=== PATIENT | female | born 2005 ===

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

== ENCOUNTER 2023-03-29 10:09 | Outpatient (CLI) | payer BC, OTHER, SELFPAY ==
--- NOTE | ~2023-03-29 | US_ITS ---
Abdominal Sonogram: Real-time sonographic imaging of the abdomen was performed. Clinical History: Splenomegaly Findings: The liver appears normal with no evidence of mass lesion or bile duct dilatation. Main por teresa vein demonstrates normal direction of flow. The spleen is normal in size without evidence of foca l lesion. The gallbladder is well distended, and appears normal with no evidence of gallstone or wal l thickening. The common bile duct measures 3 mm. The visualized pancreas, aorta, and IVC are unrema rkable. The right kidney measures 11.2 cm in length and the left kidney measures 10.5 cm. There is no hydronephrosis or renal calculus. Impression: Unremarkable abdominal ultrasound. No splenomegaly. Reviewed, dictated and finalized at location . Impression: Unremarkable abdominal ultrasound. No splenomegaly.
== END 2023-03-29 10:10 | disposition home or self-care (01) ==
PROVIDERS: PCP Pediatrics; Visit Provider Pediatrics
DX: R16.1 Splenomegaly, not elsewhere classified (principal)
CPT/HCPCS: 76700

== ENCOUNTER 2025-02-20 18:11 | Observation (INO) | payer BC, SELFPAY ==
--- NOTE | ~2025-02-20 | US_ITS ---
EXAMINATION: US transvaginal DATE: 02/22/2025 10:31 INDICATION: Fibroid on CT TECHNIQUE: Multiple endovaginal sonographic images of the pelvis were obtained. COMPARISON: None. FINDINGS: The uterus measures 5.1 x 2.7 x 3.8 cm. The endometrial complex measures 3 mm in thickness inclusive of 2 mm of anechoic fluid within the endometrial canal. Normal appearance to the uterine myometrium with no uterine fibroids or other uterine lesions identified. The bilateral ovaries are not clearly v isualized there is normal vascular flow in the ovaries. There is trace amount of anechoic likely phys iologic free fluid in the cul-de-sac. IMPRESSION: 1. Unremarkable pelvic ultrasound. Reviewed, dictated and finalized at location A.
--- NOTE | ~2025-02-20 | CT_ITS ---
CT abdomen pelvis w con Ordering provider: Juaquin Rivera MD History: 19 years Female with . abd pain . Comparison: None. Technique: CT abdomen and pelvis with IV and without oral contrast. Automated exposure control and it erative reconstruction technique were employed. The dose-length product was 293.53 mGy-cm. 100 mL Omn ipaque 350 was given IV. Findings: VISUALIZED LOWER CHEST: Normal. UPPER ABDOMINAL ORGANS: Liver: Fat infiltration. Gallbladder: Normal. Spleen: Normal. Stomach/duodenum: Normal. Pancreas: Normal. Adrenals: Normal. Kidneys: Normal. PELVIC ORGANS: The bladder is underfilled with thickened wall. Evaluation for cystitis advised. Retro verted uterus with enhancing area. Ultrasound evaluation advised. BOWEL AND MESENTERY: Colon: No evidence of diverticulitis. Appendix is not demonstrated. Small Bowel: Normal. No obstruction. Peritoneum/mesentery: No free air or free fluid. No mesenteric lymphadenopathy. RETROPERITONEUM: Normal aorta. No retroperitoneal lymphadenopathy. MUSCULOSKELETAL: Superficial soft tissues: The superficial soft tissues are normal. Bones: Normal spine. IMPRESSION: 1. No evidence of appendicitis, diverticulitis or intestinal obstruction. 2. Enhancing area in the uterus which may be fibroid. 3. Thickened wall of the urinary bladder. Evaluation for cystitis advised. 4. Fat infiltration. Reviewed, dictated and finalized at location A.
--- NOTE | ~2025-02-20 | US_ITS ---
EXAMINATION: US abdomen complete DATE: 02/22/2025 09:44 INDICATION: Assess for cholelithiasis. Fibroids on CT. TECHNIQUE: Multiple grayscale and Doppler ultrasound images of the abdomen were obtained. COMPARISON: CT dated 02/20/2025 and ultrasound dated FINDINGS: The pancreatic head and body are normal in appearance. The pancreatic tail is not visualized. Liver has normal contour, with a smooth surface. There is increased parenchymal echogenicity and coarsened echotexture consistent with diffuse hepatic steatosis. No liver lesion identified. No intrahepatic b iliary duct dilation suspected. Portal venous flow was seen in the hepatopetal, normal direction and has normal Doppler waveform. Abdominal aorta is normal in caliber measuring 1.6 cm proximally, 1.6 cm in the mid aorta and 1.1 cm in the distal aorta. The visualized proximal inferior vena cava is monique l. The gallbladder is normal in appearance. There is no cholelithiasis. The common bile duct measure s 2-3 mm, which is normal. Sonographic Lentz sign was reported as negative by the manufacturing engineering intern. There is normal renal contour and echogenicity bilaterally. The right kidney measures 10.7 x 3.7 x 4.6 cm and the left 11.3 x 4.7 x 4.7 cm. There are no focal renal lesions identified. There is no hydronep hrosis. Normal spleen measuring 9.2 cm maximal length. IMPRESSION: 1. Diffuse hepatic steatosis. Otherwise normal abdominal ultrasound with no cholelithiasis. Reviewed, dictated and finalized at location A. IMPRESSION: 1. Diffuse hepatic steatosis. Otherwise normal abdominal ultrasound with no cho lelithiasis.
--- OUTSIDE RECORDS SUMMARY | 2025-02-20 18:14 | XMS_ITS | Patient Health Record ---
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 Name Role Phone Cristhian Phillip Unavailable [phone] GuiYazmin velasco Unavailable [phone] Migration, Provider Unavailable Unavailable Allergies No Known Allergies Results Component Value Reference Range Notes UDT Reviewed date:05/03/2024 08:55:39 AM Interpretation: Performing Lab: Notes/Report: THC P 0 - 50 ng/ml Cocaine N 0 - 300 ng/ml Amphetamine N 0 - 1000 ng/ml Buprenorphine (BUP) N 0 - 10 ng/ml Secobarbital (Bar) N 0 - 300 ng/ml Oxazepam (BZO) N 0 - 300 ng/ml 9-cwmiixmowj-9,3-eubzzsae-9,3-diphenylpyrrolidine (TIFFANIE P) N 0 - 300 ng/ml Methamphetamine (MET) N 0 - 1000 ng/ml Methylenedioxymethamphetamine (MDMA) N 0 - 500 ng/ml Morphine (MOP 300/[id number]) N 0 - 300 ng/ml Methadone (MTD) N 0 - 300 ng/ml Phencyclidine (PCP) N 0 - 25 ng/ml Nortriptyline (TCA) N 0 - 1000 ng/ml x N 0 - 300 ng/ml Reason For Referral No Information Medications Medication SIG (Take, Route, Frequency, Duration) Notes Start Date End Date Status lamoTRIgine ER 200 MG 1 tablet Oral Once a day for 90 days Active Escitalopram Oxalate 20 MG 1 tablet Oral Once a day for 90 days Active rOPINIRole HCl 1 MG 1 TABLET BY MOUTH 1 TO 3 HOURS BEFORE BEDTIME ORAL ONCE A DAY 30 DAYS for 90 Active Vraylar 4.5 MG 1 capsule Orally Once a day for 90 days dose increase Active clonazePAM 0.5 MG Oral 12/19/2023 A ctive Methylphenidate HCl ER 27 MG Oral 12/19/2023 Active rOPINIRole HCl 0.5 MG 1 tablet Oral Once a day for 90 days Active medroxyPROGESTERone Acetate 150 MG/ML Intramuscular 12/19/2023 Active Immunizations Vaccine Route Administration Date Status Comme nts Pfizer [employer] Covid-19 Vac cine 2nd dose Unknown 12/24/2020 Administered Pfizer [employer] Covid-19 Vac cine 2nd dose Unknown 01/13/2021 Administered Social History Sex Assigned At : Social History Observation Description Sex Assigned At Female Problems Problem Type SNOMED Code ICD Code Onset Dates Problem Status W/U Status Risk Notes Problem Mixed bipolar I disorder (93532540) Bipolar disorder, current episode mixed, unspecified (F31.60) 12/19/19 Active confirmed Problem Generalized anxiety disorder (75217088) Generalized anxiety disorder (F41.1) 12/19/19 Active confirmed Problem Attention deficit hyperactivity disorder, combined type (76725398) Attention-deficit hyperactivity disorder, combined type (F90.2) 03/12/20 Active confirmed Problem Restless legs syndrome (85137205) Restless leg syndrome (G25.81) Active confirmed Vital Signs Heart Rate 118 /min 10/01/2024 Height-cm 167.64 cm 10/01/2024 Blood pressure diastolic 88 mm Hg 10/01/2024 Weight-kg 63.5 kg 10/01/2024 Height 66.00 in 10/01/2024 Blood pressure systolic 133 mm Hg 10/01/2024 Weight 140.0 lbs 10/01/2024 BMI 22.59 kg/m2 10/01/2024 Encounters Encounter Location Date Provider Diagnosis [facility] [employer] [facility] [address] [facility] [address] [place] [address] 2024 Provider Migration Attention-deficit hyperactivity disorder, combined type F90.2 [facility] [employer] [address] [facility] [address] [place] [address] 04/03/2024 Cristhian Phillip Attention-deficit hyperactivity disorder, combined type F90.2 ; Generalized anxiety disorder F41.1 and Bipolar disorder, current episode mixed, unspecified F31.60 [facility], [facility] [address] [place] [address] 05/02/2024 Cristhian Phillip [facility], [facility] [address] [place] [address] 05/03/2024 Cristhian Phillip Attention-deficit hyperactivity disorder, combined type F90.2 ; Generalized anxiety disorder F41.1 and Bipolar disorder, current episode mixed, unspecified F31.60 [facility], [facility] [address] [place] [address] 05/31/2024 Cristhian Phillip Attention-deficit hyperactivity disorder, combined type F90.2 ; Generalized anxiety disorder F41.1 ; Bipolar disorder, current episode mixed, unspecified F31.60 and Restless leg syndrome G25.81 [facility], [facility] [address] [place] [address] 07/02/2024 Cristhian Phillip Attention-deficit hyperactivity disorder, combined type F90.2 ; Generalized anxiety disorder F41.1 ; Bipolar disorder, current episode mixed, unspecified F31.60 and Restless leg syndrome G25.81 [facility], [facility] [address] [place] [address] 07/04/2024 Cristhian Phillip [facility], [facility] [address] [place] [address] 10/01/2024 Cristhian Phillip Attention-deficit hyperactivity disorder, combined type F90.2 ; Generalized anxiety disorder F41.1 ; Bipolar disorder, current episode mixed, unspecified F31.60 and Restless leg syndrome G25.81 [facility], [facility] [address] [place] [address] 12/30/2024 Cristhian Phillip Attention-deficit hyperactivity disorder, combined type F90.2 ; Generalized anxiety disorder F41.1 ; Bipolar disorder, current episode mixed, unspecified F31.60 and Restless leg syndrome G25.81 [facility], [facility] [address] [place] [address] 03/09/2024 Provider Migration [facility], [facility] [address] [place] [address] 03/10/2024 Provider Migration [facility], [facility] [address] [place] [address] 03/11/2024 Provider Migration [place] [address] [address] 07/04/2024 Cristhian Ramachandrana [facility], [place] [address] [address] 04/20/2024 Yazmin Messer Attention-deficit hyperactivity disorder, combined type F90.2 [place] [address] [address] 06/09/2024 Cristhian Phillip [place] [address] [facility] [address] [place] [address] 06/13/2024 Cristhian Phillip Attention-deficit hyperactivity disorder, combined type F90.2 and Bipolar disorder, current episode mixed, unspecified F31.60 [place] [address] [address] 07/15/2024 Cristhian Phillip Bipolar disorder, current episode mixed, unspecified F31.60 and Attention-deficit hyperactivity disorder, combined type F90.2 [place] [address] [address] 08/23/2024 Cristhian Phillip Attention-deficit hyperactivity disorder, combined type F90.2 [facility], [place] [address] [address] 08/25/2024 Cristhianjoon Urbinaoza Bipolar disorder, current episode mixed, unspecified F31.60 and Restless leg syndrome G25.81 [place] [address] [address] 09/30/2024 Cristhian Phillip [place] [address] [address] 11/03/2024 Cristhian Phillip Attention-deficit hyperactivity disorder, combined type F90.2 Assessments Encounter Date Diagnosis (ICD Code) Assessment Notes Treatment Notes Treatment Clinical Notes Section Notes 2024 Attention-defic it hyperactivity disorder, combined type (ICD-10 - F90.2) 04/03/2024 Generalized anxiety disorder (ICD-10 - F41.1) 04/03/2024 Attention-defic it hyperactivity disorder, combined type (ICD-10 - F90.2) 04/20/2024 Attention-defic it hyperactivity disorder, combined type (ICD-10 - F90.2) 05/03/2024 Attention-defic it hyperactivity disorder, combined type (ICD-10 - F90.2) 1. Bipolar Disorder - Patient reports feeling stable with no ups and downs since starting Abilify 2 mg daily. However, the patient is experiencing twitching and restlessness, which may be a side effect of Abilify. - Plan: Discontinue Abilify and monitor for improvement in twitching symptoms. Consider alternative atypical antipsychotic or increasing Lamotrigine dose if needed. Follow up in one month to assess mood stability and twitching symptoms. 2. Restless Leg Syndrome - Patient reports a family history of restless leg syndrome and is currently experiencing restless legs. - Plan: Monitor symptoms after discontinuing Abilify, as this may be contributing to the restlessness. Consider further evaluation and treatment for restless leg syndrome if symptoms persist. 3. ADHD - Patient is currently taking Journay for ADHD symptoms and reports it is working well. - Plan: Continue Journay for ADHD management. Monitor for any changes in symptoms or side effects. 4. Sleep disturbance - Patient reports difficulty sleeping due to twitching and restlessness. - Plan: Discontinue Abilify and monitor for improvement in sleep quality. Consider further evaluation and treatment for sleep disturbance if symptoms persist after stopping Abilify. Follow-up: Schedule a follow-up appointment in one month to assess the patient's mood stability, twitching symptoms, and overall well-being. 05/31/2024 Generalized anxiety disorder (ICD-10 - F41.1) escitalopram 20mg daily 1. Tardive Dyskinesia and Restless Leg Syndrome - Patient reports improvement in twitching after stopping Abilify, but still experiences some twitching and restless legs. - Plan: Start ropinirole 0.5 mg at bedtime for restless leg syndrome. Monitor for improvement in symptoms. 2. Bipolar Disorder - Patient reports mood swings and increased emotional sensitivity since stopping Abilify. - Plan: Continue lamotrigine ER 200 mg daily for mood stabilization. Add Vraylar 1.5 mg daily to further stabilize mood. Monitor for side effects, particularly akathisia, and adjust dosage as needed. 3. Generalized Anxiety Disorder - Patient is currently on escitalopram 20 mg daily. - Plan: Continue escitalopram 20 mg daily for anxiety management. Monitor for effectiveness and side effects. 4. ADHD Combined Presentation - Patient reports Jornay 100 mg at bedtime is working well. - Plan: Continue Jornay 100 mg at bedtime for ADHD management. Refill prescription as needed. 5. Follow-up - Schedule a follow-up appointment in one month to assess the effectiveness of Vraylar and ropinirole, and to monitor for any side effects. Adjust treatment plan as necessary. 05/31/2024 Attention-defic it hyperactivity disorder, combined type (ICD-10 - F90.2) 1. Tardive Dyskinesia and Restless Leg Syndrome - Patient reports improvement in twitching after stopping Abilify, but still experiences some twitching and restless legs. - Plan: Start ropinirole 0.5 mg at bedtime for restless leg syndrome. Monitor for improvement in symptoms. 2. Bipolar Disorder - Patient reports mood swings and increased emotional sensitivity since stopping Abilify. - Plan: Continue lamotrigine ER 200 mg daily for mood stabilization. Add Vraylar 1.5 mg daily to further stabilize mood. Monitor for side effects, particularly akathisia, and adjust dosage as needed. 3. Generalized Anxiety Disorder - Patient is currently on escitalopram 20 mg daily. - Plan: Continue escitalopram 20 mg daily for anxiety management. Monitor for effectiveness and side effects. 4. ADHD Combined Presentation - Patient reports Jornay 100 mg at bedtime is working well. - Plan: Continue Jornay 100 mg at bedtime for ADHD management. Refill prescription as needed. 5. Follow-up - Schedule a follow-up appointment in one month to assess the effectiveness of Vraylar and ropinirole, and to monitor for any side effects. Adjust treatment plan as necessary. 06/13/2024 Attention-defic it hyperactivity disorder, combined type (ICD-10 - F90.2) 07/02/2024 Attention-defic it hyperactivity disorder, combined type (ICD-10 - F90.2) 1. Bipolar Disorder: - Patient reports improvement in mood swings and emotional sensitivity with Vraylar 1.5 mg, but still experiencing some symptoms and a recent mild manic episode. Plan: - Increase Vraylar to 3 mg once daily to further address symptoms. - Continue monitoring for side effects and efficacy. 2. Restless Legs Syndrome: - Patient has been taking ropinirole 0.5 mg from a family member's leftover supply and reports improvement. Plan: - Resend prescription for ropinirole 0.5 mg, one tablet 1-3 hours before bedtime, to [facility] pharmacy in [place], [place]. - Ensure patient receives their own supply and continues treatment. 3. ADHD: - Patient reports satisfaction with Jornay for ADHD management. Plan: - Continue Jornay as prescribed. - Refill when due. 4. Anxiety/Depress ion: - Patient is currently on Lexapro 20 mg daily and reports no issues. Plan: - Continue Lexapro 20 mg daily. - Monitor for any changes in mood or anxiety levels. 5. Medication Management: - Patient expresses confusion regarding multiple bottles of the same medication from [facility]. Plan: - Work with the pharmacy to streamline medication dispensing and minimize confusion for the patient. - Continue monitoring patient's adherence to prescribed medications. 07/15/2024 Bipolar disorder, current episode mixed, unspecified (ICD-10 - F31.60) 08/23/2024 Attention-defic it hyperactivity disorder, combined type (ICD-10 - F90.2) 08/25/2024 Bipolar disorder, current episode mixed, unspecified (ICD-10 - F31.60) 10/01/2024 Attention-defic it hyperactivity disorder, combined type (ICD-10 - F90.2) 1. Bipolar Disorder: - Patient reports mood stability with current medications, Vraylar and Lamotrigine ER. - Plan: Continue Vraylar 3 mg daily and Lamotrigine ER 200 mg daily. Monitor for any changes in mood and adjust medications as needed. Follow-up in 3 months. 2. ADHD: - Patient reports improvement with Jornay PM. - Plan: Continue Jornay PM as prescribed. Monitor for any changes in ADHD symptoms and adjust medications as needed. Follow-up in 3 months. 3. Anxiety: - Patient reports mild anxiety, managed with Escitalopram. - Plan: Continue Escitalopram 20 mg daily. Monitor for any changes in anxiety levels and adjust medications as needed. Follow-up in 3 months. 4. Restless Leg Syndrome: - Patient reports improvement with Ropinirole, but still experiences symptoms when exhausted. - Plan: Continue Ropinirole 0.5 mg daily. Monitor for any changes in symptoms and consider increasing the dose if symptoms worsen. Follow-up in 3 months. Follow-up: Schedule a follow-up appointment in 3 months to monitor the patient's progress and medication effectiveness. 11/03/2024 Attention-defic it hyperactivity disorder, combined type (ICD-10 - F90.2) 12/30/2024 Attention-defic it hyperactivity disorder, combined type (ICD-10 - F90.2) 12/30/2024 Generalized anxiety disorder (ICD-10 - F41.1) escitalopram 20mg daily 07/02/2024 Generalized anxiety disorder (ICD-10 - F41.1) escitalopram 20mg daily 1. Bipolar Disorder: - Patient reports improvement in mood swings and emotional sensitivity with Vraylar 1.5 mg, but still experiencing some symptoms and a recent mild manic episode. Plan: - Increase Vraylar to 3 mg once daily to further address symptoms. - Continue monitoring for side effects and efficacy. 2. Restless Legs Syndrome: - Patient has been taking ropinirole 0.5 mg from a family member's leftover supply and reports improvement. Plan: - Resend prescription for ropinirole 0.5 mg, one tablet 1-3 hours before bedtime, to [facility] pharmacy in [place], [place]. - Ensure patient receives their own supply and continues treatment. 3. ADHD: - Patient reports satisfaction with Jornay for ADHD management. Plan: - Continue Jornay as prescribed. - Refill when due. 4. Anxiety/Depress ion: - Patient is currently on Lexapro 20 mg daily and reports no issues. Plan: - Continue Lexapro 20 mg daily. - Monitor for any changes in mood or anxiety levels. 5. Medication Management: - Patient expresses confusion regarding multiple bottles of the same medication from [facility]. Plan: - Work with the pharmacy to streamline medication dispensing and minimize confusion for the patient. - Continue monitoring patient's adherence to prescribed medications. 10/01/2024 Generalized anxiety disorder (ICD-10 - F41.1) escitalopram 20mg daily 1. Bipolar Disorder: - Patient reports mood stability with current medications, Vraylar and Lamotrigine ER. - Plan: Continue Vraylar 3 mg daily and Lamotrigine ER 200 mg daily. Monitor for any changes in mood and adjust medications as needed. Follow-up in 3 months. 2. ADHD: - Patient reports improvement with Jornay PM. - Plan: Continue Jornay PM as prescribed. Monitor for any changes in ADHD symptoms and adjust medications as needed. Follow-up in 3 months. 3. Anxiety: - Patient reports mild anxiety, managed with Escitalopram. - Plan: Continue Escitalopram 20 mg daily. Monitor for any changes in anxiety levels and adjust medications as needed. Follow-up in 3 months. 4. Restless Leg Syndrome: - Patient reports improvement with Ropinirole, but still experiences symptoms when exhausted. - Plan: Continue Ropinirole 0.5 mg daily. Monitor for any changes in symptoms and consider increasing the dose if symptoms worsen. Follow-up in 3 months. Follow-up: Schedule a follow-up appointment in 3 months to monitor the patient's progress and medication effectiveness. 08/25/2024 Restless leg syndrome (ICD-10 - G25.81) 07/15/2024 Attention-defic it hyperactivity disorder, combined type (ICD-10 - F90.2) 05/03/2024 Generalized anxiety disorder (ICD-10 - F41.1) 1. Bipolar Disorder - Patient reports feeling stable with no ups and downs since starting Abilify 2 mg daily. However, the patient is experiencing twitching and restlessness, which may be a side effect of Abilify. - Plan: Discontinue Abilify and monitor for improvement in twitching symptoms. Consider alternative atypical antipsychotic or increasing Lamotrigine dose if needed. Follow up in one month to assess mood stability and twitching symptoms. 2. Restless Leg Syndrome - Patient reports a family history of restless leg syndrome and is currently experiencing restless legs. - Plan: Monitor symptoms after discontinuing Abilify, as this may be contributing to the restlessness. Consider further evaluation and treatment for restless leg syndrome if symptoms persist. 3. ADHD - Patient is currently taking Journay for ADHD symptoms and reports it is working well. - Plan: Continue Journay for ADHD management. Monitor for any changes in symptoms or side effects. 4. Sleep disturbance - Patient reports difficulty sleeping due to twitching and restlessness. - Plan: Discontinue Abilify and monitor for improvement in sleep quality. Consider further evaluation and treatment for sleep disturbance if symptoms persist after stopping Abilify. Follow-up: Schedule a follow-up appointment in one month to assess the patient's mood stability, twitching symptoms, and overall well-being. 06/13/2024 Bipolar disorder, current episode mixed, unspecified (ICD-10 - F31.60) 05/31/2024 Bipolar disorder, current episode mixed, unspecified (ICD-10 - F31.60) Jornay PM Oral Capsule Extended Release 24 Hour 60 MG may enhance the adverse/toxic effects (eg, extrapyramidal symptoms) of antipsychotic agents (eg, ARIPiprazole Oral Tablet 2 MG). 1. Tardive Dyskinesia and Restless Leg Syndrome - Patient reports improvement in twitching after stopping Abilify, but still experiences some twitching and restless legs. - Plan: Start ropinirole 0.5 mg at bedtime for restless leg syndrome. Monitor for improvement in symptoms. 2. Bipolar Disorder - Patient reports mood swings and increased emotional sensitivity since stopping Abilify. - Plan: Continue lamotrigine ER 200 mg daily for mood stabilization. Add Vraylar 1.5 mg daily to further stabilize mood. Monitor for side effects, particularly akathisia, and adjust dosage as needed. 3. Generalized Anxiety Disorder - Patient is currently on escitalopram 20 mg daily. - Plan: Continue escitalopram 20 mg daily for anxiety management. Monitor for effectiveness and side effects. 4. ADHD Combined Presentation - Patient reports Jornay 100 mg at bedtime is working well. - Plan: Continue Jornay 100 mg at bedtime for ADHD management. Refill prescription as needed. 5. Follow-up - Schedule a follow-up appointment in one month to assess the effectiveness of Vraylar and ropinirole, and to monitor for any side effects. Adjust treatment plan as necessary. 04/03/2024 Bipolar disorder, current episode mixed, unspecified (ICD-10 - F31.60) 05/31/2024 Restless leg syndrome (ICD-10 - G25.81) 1. Tardive Dyskinesia and Restless Leg Syndrome - Patient reports improvement in twitching after stopping Abilify, but still experiences some twitching and restless legs. - Plan: Start ropinirole 0.5 mg at bedtime for restless leg syndrome. Monitor for improvement in symptoms. 2. Bipolar Disorder - Patient reports mood swings and increased emotional sensitivity since stopping Abilify. - Plan: Continue lamotrigine ER 200 mg daily for mood stabilization. Add Vraylar 1.5 mg daily to further stabilize mood. Monitor for side effects, particularly akathisia, and adjust dosage as needed. 3. Generalized Anxiety Disorder - Patient is currently on escitalopram 20 mg daily. - Plan: Continue escitalopram 20 mg daily for anxiety management. Monitor for effectiveness and side effects. 4. ADHD Combined Presentation - Patient reports Jornay 100 mg at bedtime is working well. - Plan: Continue Jornay 100 mg at bedtime for ADHD management. Refill prescription as needed. 5. Follow-up - Schedule a follow-up appointment in one month to assess the effectiveness of Vraylar and ropinirole, and to monitor for any side effects. Adjust treatment plan as necessary. 05/03/2024 Bipolar disorder, current episode mixed, unspecified (ICD-10 - F31.60) Jornay PM Oral Capsule Extended Release 24 Hour 60 MG may enhance the adverse/toxic effects (eg, extrapyramidal symptoms) of antipsychotic agents (eg, ARIPiprazole Oral Tablet 2 MG). 1. Bipolar Disorder - Patient reports feeling stable with no ups and downs since starting Abilify 2 mg daily. However, the patient is experiencing twitching and restlessness, which may be a side effect of Abilify. - Plan: Discontinue Abilify and monitor for improvement in twitching symptoms. Consider alternative atypical antipsychotic or increasing Lamotrigine dose if needed. Follow up in one month to assess mood stability and twitching symptoms. 2. Restless Leg Syndrome - Patient reports a family history of restless leg syndrome and is currently experiencing restless legs. - Plan: Monitor symptoms after discontinuing Abilify, as this may be contributing to the restlessness. Consider further evaluation and treatment for restless leg syndrome if symptoms persist. 3. ADHD - Patient is currently taking Journay for ADHD symptoms and reports it is working well. - Plan: Continue Journay for ADHD management. Monitor for any changes in symptoms or side effects. 4. Sleep disturbance - Patient reports difficulty sleeping due to twitching and restlessness. - Plan: Discontinue Abilify and monitor for improvement in sleep quality. Consider further evaluation and treatment for sleep disturbance if symptoms persist after stopping Abilify. Follow-up: Schedule a follow-up appointment in one month to assess the patient's mood stability, twitching symptoms, and overall well-being. 07/02/2024 Bipolar disorder, current episode mixed, unspecified (ICD-10 - F31.60) Jornay PM Oral Capsule Extended Release 24 Hour 60 MG may enhance the adverse/toxic effects (eg, extrapyramidal symptoms) of antipsychotic agents (eg, ARIPiprazole Oral Tablet 2 MG). 1. Bipolar Disorder: - Patient reports improvement in mood swings and emotional sensitivity with Vraylar 1.5 mg, but still experiencing some symptoms and a recent mild manic episode. Plan: - Increase Vraylar to 3 mg once daily to further address symptoms. - Continue monitoring for side effects and efficacy. 2. Restless Legs Syndrome: - Patient has been taking ropinirole 0.5 mg from a family member's leftover supply and reports improvement. Plan: - Resend prescription for ropinirole 0.5 mg, one tablet 1-3 hours before bedtime, to [facility] pharmacy in [place], [place]. - Ensure patient receives their own supply and continues treatment. 3. ADHD: - Patient reports satisfaction with Jornay for ADHD management. Plan: - Continue Jornay as prescribed. - Refill when due. 4. Anxiety/Depress ion: - Patient is currently on Lexapro 20 mg daily and reports no issues. Plan: - Continue Lexapro 20 mg daily. - Monitor for any changes in mood or anxiety levels. 5. Medication Management: - Patient expresses confusion regarding multiple bottles of the same medication from [facility]. Plan: - Work with the pharmacy to streamline medication dispensing and minimize confusion for the patient. - Continue monitoring patient's adherence to prescribed medications. 10/01/2024 Bipolar disorder, current episode mixed, unspecified (ICD-10 - F31.60) Jornay PM Oral Capsule Extended Release 24 Hour 60 MG may enhance the adverse/toxic effects (eg, extrapyramidal symptoms) of antipsychotic agents (eg, ARIPiprazole Oral Tablet 2 MG). 1. Bipolar Disorder: - Patient reports mood stability with current medications, Vraylar and Lamotrigine ER. - Plan: Continue Vraylar 3 mg daily and Lamotrigine ER 200 mg daily. Monitor for any changes in mood and adjust medications as needed. Follow-up in 3 months. 2. ADHD: - Patient reports improvement with Jornay PM. - Plan: Continue Jornay PM as prescribed. Monitor for any changes in ADHD symptoms and adjust medications as needed. Follow-up in 3 months. 3. Anxiety: - Patient reports mild anxiety, managed with Escitalopram. - Plan: Continue Escitalopram 20 mg daily. Monitor for any changes in anxiety levels and adjust medications as needed. Follow-up in 3 months. 4. Restless Leg Syndrome: - Patient reports improvement with Ropinirole, but still experiences symptoms when exhausted. - Plan: Continue Ropinirole 0.5 mg daily. Monitor for any changes in symptoms and consider increasing the dose if symptoms worsen. Follow-up in 3 months. Follow-up: Schedule a follow-up appointment in 3 months to monitor the patient's progress and medication effectiveness. 12/30/2024 Bipolar disorder, current episode mixed, unspecified (ICD-10 - F31.60) Jornay PM Oral Capsule Extended Release 24 Hour 60 MG may enhance the adverse/toxic effects (eg, extrapyramidal symptoms) of antipsychotic agents (eg, ARIPiprazole Oral Tablet 2 MG). 12/30/2024 Restless leg syndrome (ICD-10 - G25.81) 10/01/2024 Restless leg syndrome (ICD-10 - G25.81) 1. Bipolar Disorder: - Patient reports mood stability with current medications, Vraylar and Lamotrigine ER. - Plan: Continue Vraylar 3 mg daily and Lamotrigine ER 200 mg daily. Monitor for any changes in mood and adjust medications as needed. Follow-up in 3 months. 2. ADHD: - Patient reports improvement with Jornay PM. - Plan: Continue Jornay PM as prescribed. Monitor for any changes in ADHD symptoms and adjust medications as needed. Follow-up in 3 months. 3. Anxiety: - Patient reports mild anxiety, managed with Escitalopram. - Plan: Continue Escitalopram 20 mg daily. Monitor for any changes in anxiety levels and adjust medications as needed. Follow-up in 3 months. 4. Restless Leg Syndrome: - Patient reports improvement with Ropinirole, but still experiences symptoms when exhausted. - Plan: Continue Ropinirole 0.5 mg daily. Monitor for any changes in symptoms and consider increasing the dose if symptoms worsen. Follow-up in 3 months. Follow-up: Schedule a follow-up appointment in 3 months to monitor the patient's progress and medication effectiveness. 07/02/2024 Restless leg syndrome (ICD-10 - G25.81) 1. Bipolar Disorder: - Patient reports improvement in mood swings and emotional sensitivity with Vraylar 1.5 mg, but still experiencing some symptoms and a recent mild manic episode. Plan: - Increase Vraylar to 3 mg once daily to further address symptoms. - Continue monitoring for side effects and efficacy. 2. Restless Legs Syndrome: - Patient has been taking ropinirole 0.5 mg from a family member's leftover supply and reports improvement. Plan: - Resend prescription for ropinirole 0.5 mg, one tablet 1-3 hours before bedtime, to [facility] pharmacy in [place], [place]. - Ensure patient receives their own supply and continues treatment. 3. ADHD: - Patient reports satisfaction with Jornay for ADHD management. Plan: - Continue Jornay as prescribed. - Refill when due. 4. Anxiety/Depress ion: - Patient is currently on Lexapro 20 mg daily and reports no issues. Plan: - Continue Lexapro 20 mg daily. - Monitor for any changes in mood or anxiety levels. 5. Medication Management: - Patient expresses confusion regarding multiple bottles of the same medication from [facility]. Plan: - Work with the pharmacy to streamline medication dispensing and minimize confusion for the patient. - Continue monitoring patient's adherence to prescribed medications. 12/30/2024 Other 1. Bipolar Disorder: - Patient reports recent episodes of gambling behavior lasting a couple of weeks, followed by a depressive episode. - Now getting back up on the ground, indicating a return to a more stable mood state. - No hallucinations reported. - Current medications: Vraylar 3 mg daily, lamotrigine 200 mg daily, Lexapro 20 mg daily. Plan: - Increase Vraylar to 4.5 mg PO daily - Continue lamotrigine 200 mg PO daily - Continue Lexapro 20 mg PO daily - Follow up in one month to assess response to medication changes - Consider tapering off Lexapro in the future, pending clinical response 2. Restless Leg Syndrome: - Patient reports increased restless leg symptoms, primarily at night but sometimes during the day. - Currently taking ropinirole, but symptoms persist. - Unclear if symptoms have worsened with the introduction of Vraylar. Plan: - Increase ropinirole to 1 mg PO at bedtime - Monitor for improvement in restless leg symptoms - Advised to take Vraylar in the morning to avoid potential interaction with ropinirole 3. Attention Deficit Hyperactivity Disorder (ADHD): - Patient unable to obtain Jornay (methylphenidate ) due to high [id number] costs, even with a copay card. Plan: - Encourage patient to continue efforts to obtain Jornay through copay assistance programs - Monitor for any worsening of ADHD symptoms due to medication unavailability Plan Of Treatment No Information Insurance Providers Payer Name Payer Address Payer Phone Subscriber Number Group Number Insured Name Patient Relationship to Insured Coverage Start Date Coverage End Date [employer] [address] [place] [address] [id number] SKELTON Child - Insured has Financial Responsibility [facility] [address] [place] [address] [id number] IB[employer] Child - Insured has Financial Responsibility Medical (General) History Medical History History ICD Code Problems: Attention deficit hyperactivit y disorder, combined type Bipolar affective disorder, current epis ode mixed Generalized anxiety disorder Mild recurrent major depression Unable to concentrate , Surgical History Surgery Date(Month/Year) Unlisted px ant segment eye (23269) Other 11/11/2019 Unlisted px femur/knee (39792) Right Leg 11/11/2019 Appendectomy (44017) 11/14/2022 Any surgical history 04/27/2020 Unlisted px femur/knee (04123) LEFT Leg 04/28/2020
--- OUTSIDE RECORDS SUMMARY | 2025-02-20 18:14 | XMS_ITS | Clinical Summary ---
Author Organization [facility] Address [address] [place] [address] Care Team Providers Care Shuttle Hand Name Role Phone Emilia Han MD Primary Care Provider + Elias Vasques MD Unavailable [phone] Allergies No known active allergies Medications medroxyPROGESTERo ne (Depo-Provera) 150 mg/mL injectionIndicati ons: control Inject 1 mL (150 mg total) into the muscle as instructed every 3 (three) months Last dose 12/2022 Active escitalopram (LEXAPRO) 20 mg tabletIndications :Anxiety with Depression Take 1 tablet (20 mg total) by mouth nightly Active ibuprofen 200 mg tab/capIndication s:Anti-inflammato ry,Pain Take 2 tablet/capsule (400 mg total) by mouth every 8 (eight) hours as needed for pain Active lamoTRIgine XR (LaMICtal XR) 200 mg tablet extended release 24hrIndications:M ood Take 1 tablet (200 mg total) by mouth nightly 4 Active Vraylar 3 mg capsule capsuleIndication s:Depression associated with Bipolar Disorder Take 1 capsule (3 mg total) by mouth nightly 4 Active Jornay PM 100 mg capsule,del rel,ext rel sprinkIndications :Attention-Defici t Hyperactivity Disorder Take 1 capsule by mouth every evening 4 Active rOPINIRole (REQUIP) 0.5 mg tabletIndications :Restless Legs Syndrome Take 1 tablet (0.5 mg total) by mouth nightly Active ondansetron (ZOFRAN) 4 mg tablet Take 1 tablet (4 mg total) by mouth every 8 (eight) hours as needed for nausea 12 tablet 4 Active docusate sodium (COLACE) 100 mg capsuleIndication s:constipation Take 1 capsule (100 mg total) by mouth 2 (two) times a day 14 capsule 4 Active aspirin 81 mg enteric coated tablet Take 1 tablet (81 mg total) by mouth 2 (two) times a day for 14 days 28 tablet 4 Active oxyCODONE-acetami nophen (PERCOCET) 5-325 mg per tabletIndications :Pain Take 1 tablet by mouth every 6 (six) hours as needed for pain 20 tablet 4 Active Active Problems Problem Noted Date Diagnosed Date Impingement syndrome involving patellar fat pad 09/02/2024 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 female with a past medical history of bilateral femoral anteversion ,heavy menstrual periods, and knee pain that presents for syncope x2 and episodes of dizziness on POD6 from femoral anteversion surgery. In the ED, she was found to be tachycardic to the 130's. She had a Well's score of 6, so a CT PE protocol was performed and was negative for PE. Received 20 ml/kg NS bolus x2 (1990 mL total) with improvement in her tachycardia. EKG showed sinus tachycardia. CBC showed WBC 8.7, Hgb 11.4, plt 306. Electrolytes were unremarkable with Na 137, K 3.9, Cl 101, CO2 27, BUN 7, Cr 0.41. Beta- HCG negative. Tachycardia responded well to fluids. Orthopedic surgery consulted and will follow inpatient. Most likely etiology of patient's syncope is dehydrate and vasovagal syncope. POTS remains a possible diagnosis as well. Other etiologies including PE, anemia, or arrhythmia are much less likely given clinical presentation, reassuring labs, EKG and imaging. Will continue to monitor and watch hydration status. Plan: - mIVF fluids D5NS @ 90 ml/hr with Saline lock at 5:00 AM - Regular diet - Repeat orthostatic blood pressures - fall precautions - Pain control - Cyclobenzaprine q8h PRN; [place] q6hr PRN - PT evaluate and treat - Orthopedics following, appreciate recommendations Femoral anteversion of both lower extremities Right knee pain 05/31/2019 Abnormal platelet function test 07/03/2017 Abnormal uterine bleeding 07/03/2017 Diarrhea 09/24/2013 Hematochezia 09/24/2013 Pain in the abdomen 09/24/2013 Immunizations Immunization Administration Dates Next Due DTaP 03/27/2008,06/11/2004 DTaP / Hep B / IPV 2003,2003, 003 DTaP, Unspecified 03/27/2008,06/11/2004 HPV, Quadrivalent 05/22/2015,09/12/2014,05/16/20 14 Hep A, Ped Unspecified 07/04/2006 Hep A, Unspecified 10/04/2010,07/04/2006 HiB 06/11/2004, 3,2003,05/12 Hib (PRP-OMP) 06/11/2004,2003,2003 IPV 03/27/2008 Influenza, Live, Intranasal, Quadrivalent 07/19/2013 Influenza, Split 09/15/2004,03/16/2004, 3 Influenza, Trivalent, IM (MDV) 07/24/2018,2016 MMR 03/27/2008,03/16/2004 Meningococcal MCV4P (Menactra) 05/16/2014 Pneumococcal Conjugate 7-Valent 03/16/20 04,2003,2003,05/12 Polio, Unspecified 03/27/2008 Tdap 05/16/2014 Varicella 03/27/2008,03/16/2004 Surgical History Surgery Date Site/Laterality Comments KNEE SURGERY 11/11/2019 Right derotational femoral osteotomy EYE SURGERY 10/23/2015 - 10/22/2016 N/A x2; also in 2007 KNEE SURGERY 04/28/2020 Left FEMUR HARDWARE REMOVAL 09/13/2021 Bilateral APPENDECTOMY 11/13/2022 KNEE ARTHROSCOPY 12/01/2023 Left evaluation of chondral surfaces, plica resection, fat pad debridement KNEE ARTHROSCOPY 02/23/2024 Left evaluation of chondral surfaces, fat pad debridement, plica debridement Medical History Medical History Date Comments Allergies allergy shots mo nthly; seasonal and environmental Vocal cord dysfunction shortness of breath with anxiety and physical activity Femoral anteversion of both lower extremities s/p right knee/femur repair Knee pain Heavy menstrual period 07/03/2017 Saw Hem-O n[facility] in 2017 (PT/INR/PTT, Factors VII and VIII normal), no follow up needed Syncope overnight eval f or syncope x2 a few days post knee surgery. Was found to be tachycardic, likely due to dehydration and vasovagal syncope. Severe anxiety Adhd Family History Medical History Relation Name Comments Asthma Mother Family history of asthma - (Added by TW Conv) Diabetes Mother Diabetes Other Diabetes [facility] - --gestational in mom (Added by TW Conv) Anesthesia problems Neg Hx Relation Name Status Comments Mother Other Social History Tobacco Use Types Packs/Day Years Used Date Smoking Tobacco: Every Day Vaping Started: 2020 Passive Smoke Exposure: Never Smokeless Tobacco: Never Tobacco Cessation:Ready to Q uit: Not Asked; Counseling Given: Not Answered AUDIT-C Answer Date Recorded Q1: How often do you have a drink containing alcohol? Never 10/04/2024 Q2: How many drinks containi ng alcohol do you have on a typical day when you are drinking? Patient does not drink Q3: How often do you have si x or more drinks on one occasion? Never 10/04/2024 Personal Safety Answer Date Recorded Have you ever been in or are you currently in a harmful physical or emotional relationship or is someone making you feel afraid or unsafe? Denies 10/04/2024 Comments No Sex and Gender Information Value Date Recorded Sex Assigned at Not on file Legal Sex Female 12:52 PM CHIEF INNOVATION OFFICER Gender Identity Female 11/24/2023 3:03 PM CHIEF INNOVATION OFFICER Sexual Orientation Bisexual 11/24/2023 3: 03 PM CHIEF INNOVATION OFFICER Obstetrics History Last Filed Vital Signs Vital Sign Reading Time Taken Comments Blood Pressure 130/84 10/04/2024 11:10 AM CHIEF INNOVATION OFFICER Pulse 81 10/04/2024 11:10 AM CHIEF INNOVATION OFFICER Temperature 36.1 C (97 F) 10/04/2024 10:47 AM CHIEF INNOVATION OFFICER Respiratory Rate 25 10/04/2024 11:10 AM CHIEF INNOVATION OFFICER Oxygen Saturation 94% 10/04/2024 11:10 AM CHIEF INNOVATION OFFICER Inhaled Oxygen Concentration - - Weight 63.5 kg (140 lb) 10/04/2024 8:08 AM CHIEF INNOVATION OFFICER Height 167.6 cm (5' 6 ) 10/04/2024 8:08 AM CHIEF INNOVATION OFFICER Body Mass Index 22.6 10/04/2024 8:08 AM CHIEF INNOVATION OFFICER Plan of Treatment Health Maintenance Due Date Last Done Comments Cervical Cancer Screening 2003 Depression Screening 2003 Hepatitis C Screening 2003 Pneumococcal vaccine <65 (1 of 1 - PPSV23) 2009 03/16/2004, 2003, 2003, Additional history exists Meningococcal B Vaccine (2 o f 2 - Bexsero SCDM 2-dose series) 10/16/2020 04/16/2020 Regular Well Visit/Exam 18-64 2021 DTaP/Tdap/Td Vaccine (7 - Td or Tdap) 05/16/2024 05/16/2014, 03/27/2008, 03/27/2008, Additional history exists Covid-19 Vaccine (3 - 2023-2 5 season) 2024 01/13/2021, 12/24/2020 Influenza Vaccine (#1) 2024 8, 08/07/2017, 07/19/2013, Additional history exists Hepatitis B Screening Completed 2003 , 2003, 2003 Varicella Vaccines Completed 03/27/2008, 03/16/2004 HPV Vaccines Completed 05/22/2015, 08/24, 05/16/2014 Meningococcal Vaccine Completed 04/16/2020, 014 Medical Devices Explanted 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 Explanted:Qty: 1 on 09/13/2021 by Andres Maharaj MD Screw Left: Femur [employer]/O rtho 05/14/2029 [id number] / / Trigen Adolescent Allison Implanted:Qty: 1 on 11/11/2019 by Andres Maharaj MD at [facility] Explanted:Qty: 1 on 09/13/2021 by Andres Maharaj MD Right: Femur [employer] 10/23/2024 [id number] / / [id number] Description:TI-6AL-4V [employer]/Orth o [id number] 4.5mm 45mm Low Profile Internal Capture Femur Screw Bone Trigen - [id number] Implanted:Qty: 1 on 11/11/2019 by Andres Maharaj MD at [facility] Explanted:Qty: 1 on 09/13/2021 by Andres Maharaj MD Right: Femur [employer]/O rtho 04/22/2024 [id number] / / [id number] [employer]/Orth o [id number] 4.5mm 42.5mm Low Profile Internal Capture Femur Screw Bone Trigen - [id number] Implanted:Qty: 1 on 11/11/2019 by Andres Maharaj MD at [facility] Explanted:Qty: 1 on 09/13/2021 by Andres Maharaj MD Right: Femur [employer]/O rtho 03/31/2029 [id number] / / [id number] [employer]/Orth o [id number] 4.5mm 52.5mm Low Profile Internal Capture Femur Screw Bone Trigen - [id number] Implanted:Qty: 1 on 11/11/2019 by Andres Maharaj MD at [facility] Explanted:Qty: 1 on 09/13/2021 by Andres Maharaj MD Right: Femur [employer]/O rtho 12/21/2022 [id number] / / [id number] [employer]/Orth o [id number] Trigen 8.5mm 38cm Antegrade Femur Left 130d Nail Intramedullary - [id number] Implanted:Qty: 1 on 04/28/2020 by Andres Maharaj MD at [facility] Explanted:Qty: 1 on 09/13/2021 by Andres Maharaj MD Left: Femur [employer]/O rtho 05/18/2027 [id number] / / [employer]/Orth o [id number] 4.5mm 42.5mm Low Profile Internal Capture Femur Screw Bone Trigen - [id number] Implanted:Qty: 1 on 04/28/2020 by Andres Maharaj MD at 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 [address] [place] [address] Surgeon Orthopedic Surgery 11/18/19
--- OUTSIDE RECORDS SUMMARY | 2025-02-20 18:14 | XMS_ITS | Continuity of Care Document ---
Author Name [facility] Organization [facility] Care Team Providers Care Corporate Tax Preparer Name Role Phone [facility] Unavailable Unavailable Problems Combined list of problems from Department of Defense and Veterans Affairs facilities. It does not include entries that were removed or entered in error. Problem Status Onset Date Problem Type Date of Resolution Comments Source Established Patient Age 5-11 School / Camp Physical Active Condition Completed all forms with regards to school physical. Provided JAISON form to parent for school files. DoD BRONCHITIS Inactive Condition CXR shows increased markings with significant air bronchograms and peribronchial cuffing but no overt infiltrate. DoD visit for: refer patient without exam or treatment Inactive Condition NEW ORDER 1 Last CON [id number] CURT MAURICE *MANOLO* OPHTHALMOLOGY CONSULT at [facility] on 27 Jun 2007@[id number] Duty Station/Unit: strabismus URBANO ZHANG [employer]/SIGNATURE ABSENT/PRE-ACTIV E 2yo pt being followed by, Dr. Carolynn King in [place], [place] contact number /fax [phone]. Please approve for evaluation and treatment +for continuity of care. please authorize for a one year period or until . thanks, diagnosis is strabimus. pt has appt [id number] thanks please fax authorization to provider when authorized. DoD CONSTIPATION Active Condition Sent to GI on monday. Continue Miralax. Discontinue further suppositories or enemas. DoD UPPER RESPIRATORY INFECTION Inactive Condition URI. Expect thi s illness to last from 7-10 days. Provide ample rest, fluids, motrin or tylenol for pain. Assess hydration status every 6 hours by checking urine output, tear production, moisture of mouth and skin turgor (discussed with parent). DoD Fever Inactive Condition DoD visit for: laboratory Inactive Condition DoD visit for: administrative purpose Inactive Condition Spoke with mop who states received Fleets oral laxative from pharmacy and was told to use as a rectal enema. MOP states instructions on bottle indicate not to give to child under age 5, so she went to local pharmacy and bought child fleet enema and gave DoD urinary frequency increased Active Condition UA showed minimally increased LE, but no nitrite, WBC's or bacteria. Will await findings of culture and treat appropriately if positive. Etiologies for her symptoms include constipation, bladcer spasms, bubble baths or improper wiping. DoD CONJUNCTIVITIS Inactive Condition DoD visit for: 2-3 year visit Inactive Condition DoD STRABISMUS Active Condition [employer] 15 Jan 2008@2758 Page 1Personal Data - Privacy Act of 1973 (PL [id number])========= ======NEW ORDER 1 Last CON [id number] CURT MAURICE *MANOLO* OPHTHALMOLOGY CONSULT at [facility] on 15 Jan 2008@[id number] Duty Station/Unit: strabismus [employer] ABSENT/PRE-ACTIV E DoD Need For Vaccination Hepatitis A Inactive Condition DoD CONJUNCTIVITIS ACUTE Inactive Condition DoD NORMAL ROUTINE HISTORY AND PHYSICAL WELL-BABY ( - 2 Yr) Inactive Condition DoD Established Patient Age 1-4 School / Camp Physical Inactive Condition DoD STRABISMUS NON-PARALYTIC ESOTROPIA Active Condition Referral placed as requested. DoD Allergies, Adverse Reactions, Alerts Combined list of allergies from Department of Defense and Veterans Affairs facilities. It does not include entries that were removed or entered in error. Substance Category Reaction Severity Reaction type Status Date Reported Comments Source NO OUTPUT FOR NCID [id number] Drug allergy (disorder) active 03/18/2008 [employer] ([facility]) Immunizations Combined list of available immunizations from the Department of Defense and Veterans Affairs facilities. Immunization Series Date Given Administered By Site Reaction Lot Number CVX Code Drug Audit Clerk Status Comments Source measles, mumps and rubella virus vaccine 2 2007 Unknown, Provider [id number] Merck (MSD) complet ed measles, mumps and rubella virus vaccine DoD poliovirus vaccine, inactivated 4 2007 Unknown, Provider [id number] Sanofi Pasteur ([facility]) complet ed polioviru s vaccine, inactivat ed DoD diphtheria, tetanus toxoids and acellular pertu is vaccine 5 2007 Unknown, Provider [id number] 20 [employer] [place] [employer] ([facility]) complet ed diphtheri a, tetanus toxoids and acellular pertussis vaccine DoD varicella virus vaccine 2 2007 Unknown, Provider [id number] 21 Merck ([facility] complet ed varicella virus vaccine DoD hepatitis A vaccine, pediatric dosage, unspecified formulation 1 2005 Unknown, Provider [id number] 31 [employer] [place] [employer] ([facility]) complet ed hepatitis A vaccine, pediatric dosage, unspecifi ed formulati on DoD influenza virus vaccine, split virus (incl. purified surface antigen)-reti red CODE 1 2003 Unknown, Provider [id number] 15 Sanofi Pasteur ([facility]) complet ed influenza virus vaccine, split virus (incl. purified surface antigen)- retired CODE DoD diphtheria, tetanus toxoids and acellular pertu is vaccine 1 2003 Unknown, Provider [id number] 20 [employer] [place] [employer] ([facility]) complet ed diphtheri a, tetanus toxoids and acellular pertussis vaccine DoD Haemophilus influenzae type b vaccine, PRP-OMP conjugate 3 2003 Unknown, Provider [id number] 49 Merck (MSD) complet ed Haemophil us influenza e type b vaccine, PRP-OMP conjugate DoD measles, mumps and rubella virus vaccine 1 2003 Unknown, Provider [id number] 03 Merck (MSD) complet ed measles, mumps and rubella virus vaccine DoD influenza virus vaccine, split virus (incl. purified surface antigen)-reti red CODE 1 2003 Unknown, Provider [id number] 15 Sanofi Pasteur ([facility]) complet ed influenza virus vaccine, split virus (incl. purified surface antigen)- retired CODE DoD varicella virus vaccine 1 2003 Unknown, Provider [id number] 21 Merck (MSD) complet ed varicella virus vaccine DoD pneumococcal conjugate vaccine, 7 valent 3 2003 Unknown, Provider [id number] Zakia ([facility]) complet ed pneumococ goyo conjugate vaccine, 7 valent DoD influenza virus vaccine, split virus (incl. purified surface antigen)-reti red CODE 1 2002 Unknown, Provider 15 Transcribed (TRS) complet ed influenza virus vaccine, split virus (incl. purified surface antigen)- retired CODE DoD Haemophilus influenzae type b vaccine, conjugate unspecified formulation 1 2002 Unknown, Provider Transcr ibed 17 Other (OTH) complet ed Haemophil us influenza e type b vaccine, conjugate unspecifi ed formulati on DoD pneumococcal conjugate vaccine, 7 valent 4 2002 Unknown, Provider Transcr ibed 100 Other (OTH) complet ed pneumococ goyo conjugate vaccine, 7 valent DoD DTaP-hepatiti s B and poliovirus vaccine 3 2002 Unknown, Provider Transcr ibed 110 Other (OTH) complet ed DTaP-hepa titis B and polioviru s vaccine DoD Haemophilus influenzae type b vaccine, PRP-OMP conjugate 2 2002 Unknown, Provider [id number] 49 Merck (MSD) complet ed Haemophil us influenza e type b vaccine, PRP-OMP conjugate DoD pneumococcal conjugate vaccine, 7 valent 2 2002 Unknown, Provider [id number] 100 Phoebe-Zane ([facility]) complet ed pneumococ goyo conjugate vaccine, 7 valent DoD DTaP-hepatiti s B and poliovirus vaccine 2 2002 Unknown, Provider [id number] 110 [facility] DTaP-hepa titis B and polioviru s vaccine DoD Haemophilus influenzae type b vaccine, PRP-OMP conjugate 1 2002 Unknown, Provider [id number] 49 Merck (MSD) complet ed Haemophil us influenza e type b vaccine, PRP-OMP conjugate DoD pneumococcal conjugate vaccine, 7 valent 1 2002 Unknown, Provider [id number] Wycarrol-Zane (WAL) complet ed pneumococ goyo conjugate vaccine, 7 valent DoD DTaP-hepatiti s B and poliovirus vaccine 1 2002 Unknown, Provider [id number] 110 [employer] (SKB) complet ed DTaP-hepa titis B and polioviru s vaccine DoD Encounters Combined list of: 1) Encounters from Department of Veterans Affairs facilities going backup to the last 18 months, not all VA inpatient encounters are included; 2) Encounters from the Department of Defense facilities going backup to 280 months. Location Location Details Encounter Type Encounter Number Reason For Visit Attending Provider ADM Date DC Date Status Disposition Source [address] [place] [address] [employer] B ([facility])(Ped iatrics) OUTPATIENT [id number] 12 month well child MARLA PANDEY 03/16 Released w/o Limitations [address] [place] [address] [facility]P ediatri cs) [address] [place] [address] [employer] B ([facility])(Ped iatrics) OUTPATIENT [id number] 1 yr old BRODIE LIZARRAGA A 03/24 Released w/o Limitations [facility] [employer] B ([facility])(P ediatri cs) [address] [place] [address] [facility]rics) OUTPATIENT [id number] pink eye BRODIE LIZARRAGA A 04/21 Released w/o Limitations [address] [place] [address] [employer] B ([facility])(P ediatri cs) [address] [place] [address] [facility]Ped [facility]rics) TELE CONSULT [id number] needs new referra PHILIP Aleman 03/[address] [place] [address] [facility]el [facility])(P ediatri cs) [address] [place] [address] [facility])(Ped iatrics) TELE CONSULT [id number] needs referra l retro to 10 jan [address]ph[address] Strong is the provide r PHILIP RICK 03/[address] [place] [address] [employer])(P ediatri cs) [address] [place] [address] [facility]Ped iatrics) OUTPATIENT [id number] pre school JACK Carlos 07/04 Released w/o Limitations [address] [place] [address] [facility])(P ediatri cs) [address] [place] [address] [facility])(Ped iatrics) TELE CONSULT [id number] Referra l PHILIP Crespo 08/[address] [place] [address] [facility]P ediatri cs) [address] [place] [address] [facility]) OUTPATIENT [id number] L eye Redness ROCÍO ALEJO 09/19 Released w/o Limitations [address] [place] [address] [facility]A [facility]) [address] [place] [address] [employer] ([facility])(Ped iatrics) OUTPATIENT [id number] cough/p ossible uti CARMENCITA ZHANG 01/29 Released w/o Limitations [employer] ([facility])(P ediatri cs) [facility] ([facility])(Ped iatrics) TELE CONSULT [id number] [facility] CARMENCITA ZHANG 01/29 [employer] ([facility])(P ediatri cs) [employer] ([facility]Ped iatrics) TELE CONSULT [id number] FEVER LADI SERRANO 01/30 [employer] ([facility])(P ediatri cs) [employer] ([facility]Ped iatrics) OUTPATIENT [id number] Problem s going to [facility] per PCM C#593-8 [facility] CARMENCITA ZHANG 02/01 Released w/o Limitations [employer] ([facility])(P ediatri cs) [employer] ([facility]Ped iatrics) TELE CONSULT [id number] Pt needs a stephanie dong appt for that doc on 11sep LADI SERRANO 06/26 [employer] ([facility])(P ediatri cs) [employer] ([facility])(Ped iatrics) OUTPATIENT [id number] chest congest /cough/ temp CHRISTIANO CROWE 11/13 Released w/o Limitations [employer] ([facility])(P ediatri cs) [employer] ([facility]Ped iatrics) TELE CONSULT [id number] MARVIN Lenz 01/14 [employer] ([facility])(P ediatri cs) [employer] ([facility]Ped iatrics) OUTPATIENT [id number] [facility] physica l CARMENCITA ZHANG 03/27 Released w/o Limitations [employer] ([facility])(P ediatri cs) [employer] ([facility]Ped iatrics) TELE CONSULT [id number] ARMANDO Abdul 11/17 [employer] ([facility])(P ediatri cs) [employer] ([facility]Ped iatrics) TELE CONSULT [id number] referra saravia JADENAniya VIOLA, NINO 05/[address] [place] [address] Group [employer] [facility])(P ediatri cs) [address] [place] [address] [facility] TELE CONSULT [id number] referra l/anibal i JADENAniya HORTAVICTOR MANUEL, NINO 11/[address] [place] [address] Group [employer] [facility])(P ediatri cs) [address] [place] [address] [employer] [facility])(Ped iatrics) TELE CONSULT [id number] referra saarvia JADENAniya VIOLA, NINO 12/15 Referred for Appointment [address] [place] [address] Group [employer] [facility])(P ediatri cs) [address] [place] [address] [facility])(Ped iatrics) TELE CONSULT [id number] referra ARMANDO Wright 05/[address] [place] [address] Group [employer] [facility])(P ediatri cs) [address] [place] [address] [facility])(Sco tt Peds Team Jason) TELE CONSULT [id number] Notes Entered by: ROSANA FERNÁNDEZ 29 Mar 2012 1541 ------- ------- ------- ------- -- Referra rani Zhang - [id number] [address] [place] [address] JADENAniya NINO ROD 03/[address] [place] [address] Group [employer] [facility])(S cott Peds Team Jason) [address] [place] [address] [facility])(Sco tt Peds Team Jason) TELE CONSULT [id number] Notes Entered by: Raj FELICIANO 10 May 2013 1054 ------- ------- ------- ------- -- Stephanie saravia to Dr Pradhan in JERAMY Araya 05/[address] [place] [address] Group [facility])(S cott Peds Team Jason) [address] [place] [address] [facility])(Sco tt Peds Team Jason) TELE CONSULT [id number] Notes Entered by: TAVO ALCANTARA 01 May 2014 0835 ------- ------- ------- ------- -- Ophthal mology CONSTANCE Montanez 05/[address] [place] [address])([facility] Peds Team [place]) [address] [place] [address])([facility] Ped Team Jason) TELE CONSULT [id number] Notes Entered by: LYNSEY ALEXIS 22 May 2015 1002 ------- ------- ------- ------- -- Ophthal molrhetty WILIAN Reed 05/22 Referred for Appointment [address] [place] [address])([facility] Team Jason) [address] [place] [address])([facility] Res [facility]m [place]) TELE CONSULT [id number] Notes Entered by: SERNIA WOODALL 20 May 2016 1346 ------- ------- ------- ------- -- STAT Stephanie Jovel (appt May)/Avi yce/[phone] .[phone] 32 ALYSSA WONG 05/[address] [place] [address])([facility] Fam Res [facility] [place]) [address] [place] [address])([facility]o [facility] Fam Res [facility] [place]) TELE CONSULT [id number] Notes Entered by: TAMMY VARGAS 24 May 2016 0915 ------- ------- ------- ------- -- Ref discrep gissel -appt tomorro w at 1500/Avi yce/618 .[phone] 32 ALYSSA Rivas 05/[address] [place] [address])([facility] [place]) [address] [place] [address])([facility]co tt [facility] Res Tm [place]) TELE CONSULT [id number] Notes Entered by: BRANDI TEE 24 May 2016 0953 ------- ------- ------- ------- -- Updated Referra rani/ Josh / [phone] MARVINBRETStef Gallo 05/[address] [place] [address])([facility] Res Tm [place]) [address] [place] [address])([facility] Res [place]) TELE CONSULT [id number] Notes Entered by: SERINA WOODALL 19 May 2017 1439 ------- ------- ------- ------- -- STAT Referra l Renewal Request (appt May)/Avi bone/[phone] .[phone] 32 WONGBRETStef Gallo 05/[address] [place] [address])([facility] Res [facility]m [place]) [address] [place] [address])([facility] [place]) TELE CONSULT [id number] Notes Entered by: ADNE PIPER 30 Oct 2017 1240 ------- ------- ------- ------- -- Network Results -OPHTHA LMOLOGY 05/25/17 MILIND PIERCE 10/[address] [place] [address])([facility] Res [facility]m [place]) [address] [place] [address])(Sco tt [facility]) TELE CONSULT [id number] Notes Entered by: MARY JANE DE 27 May 2019 1512 ------- ------- ------- ------- -- Referra l request /jeannie / eld MARVIN ALYSSA M 05/27 Other Not Elsewhere Classified [address] [place] [address])([facility]) Procedures Combined list of: 1) Procedures from Department of Veterans Affairs facilities going back up to thelast 18 months, not all VA non-surgical procedures are included; 2) All procedures from the Department of Defense facilities. Procedure Procedure Type Code Date Perfomer Comments [facility] e IMMUNIZATION ADMINISTRATION (INCLUDES PERCUTANEOUS, INTRADERMAL, SUBCUTANEOUS, OR INTRAMUSCULAR INJECTIONS); EACH ADDITIONAL VACCINE (SINGLE OR COMBINATION VACCINE/TOXOID) 2003 DoD TELE ASSESS & MGT SRV PROV QUAL NONPHYS HLTH CARE PRO TO EST PAT,PARENT,GUARD NOT ORIG REL ASSESS & MGT SRV PROV W/IN PREV 7 DAYS NOR LEAD ASSESS & MGT SRV/PX W/IN NXT 24 HR/SOON APT;5-10 MIN MED DIS 05/19/2017 DoD TELE ASSESS & MGT SRV PROV QUAL NONPHYS HLTH CARE PRO TO EST PAT,PARENT,GUARD NOT ORIG REL ASSESS & MGT SRV PROV W/IN PREV 7 DAYS NOR LEAD ASSESS & MGT SRV/PX W/IN NXT 24 HR/SOON APT;5-10 MIN MED DIS 05/24/2016 DoD TELE ASSESS & MGT SRV PROV QUAL NONPHYS HLTH CARE PRO TO EST PAT,PARENT,GUARD NOT ORIG REL ASSESS & MGT SRV PROV W/IN PREV 7 DAYS NOR LEAD ASSESS & MGT SRV/PX W/IN NXT 24H/SOON APT; 11-20 MIN MED DIS 05/24/2016 DoD TELE ASSESS & MGT SRV PROV QUAL NONPHYS HLTH CARE PRO TO EST PAT,PARENT,GUARD NOT ORIG REL ASSESS & MGT SRV PROV W/IN PREV 7 DAYS NOR LEAD ASSESS & MGT SRV/PX W/IN NXT 24 HR/SOON APT;5-10 MIN MED DIS 05/20/2016 DoD TELE ASSESS & MGT SRV PROV QUAL NONPHYS HLTH CARE PRO TO EST PAT,PARENT,GUARD NOT ORIG REL ASSESS & MGT SRV PROV W/IN PREV 7 DAYS NOR LEAD ASSESS & MGT SRV/PX W/IN NXT 24 HR/SOON APT;5-10 MIN MED DIS 05/22/2015 DoD TELE ASSESS & MGT SRV PROV QUAL NONPHYS HLTH CARE PRO TO EST PAT,PARENT,GUARD NOT ORIG REL ASSESS & MGT SRV PROV W/IN PREV 7 DAYS NOR LEAD ASSESS & MGT SRV/PX W/IN NXT 24 HR/SOON APT;5-10 MIN MED DIS 05/01/2014 DoD TELE ASSESS & MGT SRV PROV QUAL NONPHYS HLTH CARE PRO TO EST PAT,PARENT,GUARD NOT ORIG REL ASSESS & MGT SRV PROV W/IN PREV 7 DAYS NOR LEAD ASSESS & MGT SRV/PX W/IN NXT 24H/SOON APT; 11-20 MIN MED DIS 05/10/2013 DoD TELE ASSESS & MGT SRV PROV QUAL NONPHYS HLTH CARE PRO TO EST PAT,PARENT,GUARD NOT ORIG REL ASSESS & MGT SRV PROV W/IN PREV 7 DAYS NOR LEAD ASSESS & MGT SRV/PX W/IN NXT 24 HR/SOON APT;5-10 MIN MED DIS 03/29/2012 DoD HEPATITIS A VACCINE (HEPA), PEDIATRIC/ADOLESCENT DOSAGE-2 DOSE SCHEDULE, FOR INTRAMUSCULAR USE 03/27/2008 [facility] HEPATITIS A VACCINE (HEPA), PEDIATRIC/ADOLESCENT DOSAGE-2 DOSE SCHEDULE, FOR INTRAMUSCULAR USE 07/04/2006 DoD DIPHTHERIA, TETANUS TOXOIDS, ACELLULAR PERTUSSIS VACCINE, HEPATITIS B, AND INACTIVATED POLIOVIRUS VACCINE ([id number]), FOR INTRAMUSCULAR USE 2003 [facility] DIPHTHERIA, TETANUS TOXOIDS, AND ACELLULAR PERTUSSIS VACCINE (DTAP), WHEN ADMINISTERED TO INDIVIDUALS YOUNGER THAN 7 YEARS, FOR INTRAMUSCULAR USE 2003 [facility] Non-Physician Phone Call To Patient/Provider Brief (5-10min) Non-Physician Phone Call To Patient/Provider Brief (5-10min) [id number] 05/19/2017 ALYSSA WONG DoD Non-Physician Phone Call To Pt/Provider Intermed (11-20 min) Non-Physician Phone Call To Pt/Provider Intermed (11-20 min) [id number] 05/25/2016 ALYSSA WONG Non-Physician Phone Call To Patient/Provider Brief (5-10min) Non-Physician Phone Call To Patient/Provider Brief (5-10min) [id number] 05/24/2016 ALYSSA WONG DoD Non-Physician Phone Call To Patient/Provider Brief (5-10min) Non-Physician Phone Call To Patient/Provider Brief (5-10min) [id number] 05/20/2016 ALYSSA WONG DoD Non-Physician Phone Call To Patient/Provider Brief (5-10min) Non-Physician Phone Call To Patient/Provider Brief (5-10min) [id number] 05/22/2015 WILIAN ALEXIS [facility] Non-Physician Phone Call To Patient/Provider Brief (5-10min) Non-Physician Phone Call To Patient/Provider Brief (5-10min) [id number] 05/01/2014 CONSTANCE ALCANTARA [facility] Non-Physician Phone Call To Pt/Provider Intermed (11-20 min) Non-Physician Phone Call To Pt/Provider Intermed (11-20 min) [id number] 05/10/2013 JERAMY FERRO [facility] Non-Physician Phone Call To Patient/Provider Brief (5-10min) Non-Physician Phone Call To Patient/Provider Brief (5-10min) [id number] 04/03/2012 NINO GARCIA [facility] Hep A Vac Ped/Adol Dosage (Intramusc Use) 2 Dose Schedule Hep A Vac Ped/Adol Dosage (Intramusc Use) 2 Dose Schedule 10365 03/27/2008 [facility] Vaccines Viral Varicella (Active) Vaccines Viral Varicella (Active) 40667 03/27/2008 [facility] Vaccines Viral Measles, Mumps and Rubella, Live Vaccines Viral Measles, Mumps and Rubella, Live 28457 03/27/2008 [facility] Vaccines Viral Polio, Inactivated (Salk) Vaccines Viral Polio, Inactivated (Salk) 84971 03/27/2008 [facility] DTaP Vaccine DTaP Vaccine 88512 03/27/2008 [facility] Immunization Administration One Vaccine Immunization Administration One Vaccine 94358 03/27/2008 [facility] Immunization Administration Each Additional Vaccine 03/27/2008 [facility] Immunization Administration One Vaccine Immunization Administration One Vaccine 75982 07/04/2006 JACK ZHAO [facility] Hep A Vac Ped/Adol Dosage (Intramusc Use) 2 Dose Schedule Hep A Vac Ped/Adol Dosage (Intramusc Use) 2 Dose Schedule 74327 07/04/2006 JACK ZHAO [facility] Social History Combined list of available smoking, tobacco, and other social history from Department of Defense and Veterans Affairs facilities. Social History Type Response Date Comment Sour e This section is an empty social history section. [facility]
--- OUTSIDE RECORDS SUMMARY | 2025-02-20 18:14 | XMS_ITS | Clinical Summary ---
Author Organization [facility] Address [address] [place] [address] Care Team Providers Care Milk Driver Name Role Phone Unavailable Primary Care Provider Unavailabl e Social History Tobacco Use Types Packs/Day Years Used Date Smoking Tobacco: Never Assessed Comments Unknown Sex and Gender Information Value Date Recorded Sex Assigned at Not on file Legal Sex Female 8:06 PM CDT Gender Identity Not on file Sexual Orientation Not on file Plan of Treatment Health Maintenance Due Date Last Done Comments Cervical Cancer Screening Pa p Smear (Age 21 to 29) Every 3 Years 2003 Cervical Cancer Screening 2003 Annual Physical 2006 HPV Vaccines (1 - 3-dose series) 2018 Meningococcal B Vaccine (1 o f 2 - Standard) 2019 Hepatitis C 2021 DTaP, Tdap and Td Vaccines ( 1 - Tdap) 2022 Hepatitis B Vaccines (1 of 3 - 19+ 3-dose series) 2022 COVID-19 Vaccine ( - 2023-2 5 season) 2024 Meningococcal Vaccine Aged Out No ele brad eligible based on patient's age to complete this topic Pneumococcal Vaccine: Pediat rics (0 to 5 Years) and At-Risk Patients (6 to 49 Years) Aged Out No longer eligible b ased on patient's age to complete this topic RSV Immunizations Under 20 Months Aged Out No longer eligible based on patient's age to complete this topic Insurance [facility]
--- OUTSIDE RECORDS SUMMARY | 2025-02-20 18:14 | XMS_ITS | Continuity of Care Document ---
Author Organization [facility] Address [address] [place] [address] Phone Care Team Providers Care Psychologist Name Role Phone Christine Pradhan Unavailable Unavailable [...] Copied on Encounter Office/outpat ient Visit, [facility], [address], [place], [place], [id number], [place] tel:[phone] [facility] No Information 0 Carolynn King. [address] , [address], [place], [address], [place]. tel:[phone] Office/outpat ient Visit, [facility], [address] [place] [address] [address], [place], [place], [id number], [place] tel:[phone] [facility] No Information Mar-0 9-201 0 Carolynn Aparicion. [address] , [address], [place], [place], [facility], . tel:[phone] [facility], [address] [place] [address] [address], [place], [place], [id number], [place] tel:[phone] [facility] No Information May-0 6-200 9 Carolynn AparicionRoxane [address] , [address], [place], [place], [facility], . tel:[phone] Office/outpat ient Visit, [facility], [address] [place] [address] [address], [place], [place], [id number], [place] tel:[phone] [facility] No Information Fe-1 0-200 9 Carolynn AparicionRoxane [address] , [address], [place], [place], [facility], [place]. tel:[phone] [facility], [address] [place] [address] [address], [place], [place], [id number], [place] tel:[phone] [facility] No Information Apr-2 5-200 8 Carolynn Sneed [address], [place], [facility], [place]. tel:[phone] Office/outpat ient Visit, [facility], [address] [place] [address] [address], [place], [place], [id number], [place] tel:[phone] [facility] No Information Dec-2 5-200 8 Carolynn AparicionRoxane [address], [place], [facility], [place]. tel:[phone] [facility], [address], [place], [place], [id number], [place] tel:[phone] [facility] No Information 7 Pradhan Christine. [address], [place], [facility], [place]. tel:[phone] [facility], [address], [place], [place], [id number], [place] tel:[phone] [facility] No Information 7 Pradhan Christine. [address], [place], [facility], [place]. tel:[phone] [facility], [address], [place], [place], [id number], [place] tel:[phone] [facility] No Information 7 Pradhan Christine. [address], [place], [facility], [place]. tel:[phone] [facility], [address], [place], [place], [address], [place] tel:[phone] [facility] No Information 7 Pradhan Christine. [address], [place], [facility], [place]. tel:[phone] [facility], [address], [place], [place], [address], [place] tel:[phone] [facility] No Information 7 Pradhan Christine. [address], [place], [facility], [place]. tel:[phone] [facility], [address], [place], [place], [address], [place] tel:[phone] [facility] No Information Carolynn Sneed [address] , [address], [place], [address], [place]. tel:[phone] Office/outpat ient Visit, [facility], [address], [place], [place], [id number], [place] tel:[phone] [facility] No Information Carolynn King. [address] , [address], [place], [address], [place]. tel:[phone] Family History Family Member Type Diagnosis Age At Onset No Information Payers Payer name Insurance type Covered constitution party ID Authoriza tion(s) No Information Social [...]
--- OUTSIDE RECORDS SUMMARY | 2025-02-20 18:14 | XMS_ITS ---
Author Organization [facility] Address [address] [place] [address] Care Team Providers Care Customer Care Voice Consultant Name Role Phone Phillip, Cristhian Unavailable [phone] REASON FOR VISIT Cancelled-pt is in the hospital Social History Sex Assigned At : Social History Observation Description Sex Assigned At Female Encounters Encounter Location Date Provider Diagnosis [facility] Radiation Monitoring Devices [facility] [address] [place] [address] 01/27/2025 Cristhian Phillip Plan Of Treatment No Information Progress Notes * JAYDEN IBRAHIMOB:[birth year] (19 yo F)Acc No.[id number]:01/27/2025 Patient: CURT VELEZ Provider: JUAN CARTER :2005 A ge:19 Y S ex:Female Date:01/27/2025 Address:[address] , [facility] Subjective: * Chief Complaints: * 1 . Cancelled-pt is in the hospital. * Medical History: Objective: * Vitals: Assessment: Plan: * Treatment: * Billing Information: * Visit Code: * Procedure Codes: * Electronic signature of JUAN Price on 02/20/2025 at 06:13 PM CDT Sign off status: Pending * Provider: JUAN CARTER Date: 0 01/27/2025 Generated for Samreen cordero/Gilles/eTransmitting on: 02/20/2025 06:13 PM CDT
--- OUTSIDE RECORDS SUMMARY | 2025-02-20 18:14 | XMS_ITS | Referral Summary ---
Author Organization [facility] Address [address] [place] [address] Care Team Providers Care Pass Worker Name Role Phone Emilia Han MD Primary Care Provider + Elias Vasques MD Unavailable [phone] Allergies No known active allergies Medications [...] (06/04/2021): Added automatically from request for surgery [id number] Syncope 11/18/2019 Assessment & Plan (11/18/2019 3:57 PM EPILEPSY PHYSICIAN): Larissa Maurice is a 14 y.o. female [...] - Pain control - Cyclobenzaprine q8h PRN; Winn q6hr PRN - PT evaluate and treat [...] Polio, Unspecified 03/27/2008 Tdap 05/16/2014 Varicella 03/27/2008,03/16/2004 Social History Tobacco Use Types Packs/Day Years [...] on file Legal Sex Female 12:52 PM EPILEPSY PHYSICIAN Gender Identity Female 11/24/2023 3:03 PM EPILEPSY PHYSICIAN Sexual Orientation Bisexual 11/24/2023 3: 03 PM EPILEPSY PHYSICIAN Last Filed Vital Signs Vital Sign Reading Time Taken Comments Blood Pressure 130/84 10/04/2024 11:10 AM EPILEPSY PHYSICIAN Pulse 81 10/04/2024 11:10 AM EPILEPSY PHYSICIAN Temperature 36.1 C (97 F) 10/04/2024 10:47 AM EPILEPSY PHYSICIAN Respiratory Rate 25 10/04/2024 11:10 AM EPILEPSY PHYSICIAN Oxygen Saturation 94% 10/04/2024 11:10 AM EPILEPSY PHYSICIAN Inhaled Oxygen Concentration - - Weight 63.5 kg (140 lb) 10/04/2024 8:08 AM EPILEPSY PHYSICIAN Height 167.6 cm (5' 6 ) 10/04/2024 8:08 AM EPILEPSY PHYSICIAN Body Mass Index 22.6 10/04/2024 8:08 AM EPILEPSY PHYSICIAN Plan of Treatment Not on file Medical Devices Explanted Type Area Manager Terminal Device Identifier Shelf Expiration Date Model / Serial / Lot [employer]/Orth o [id number] 4.5mm 50mm Low Profile Internal Capture Femur Screw Bone Trigen - [id number] Implanted:Qty: 1 on 04/28/2020 by Andres Maharaj MD at [facility] Explanted:Qty: 1 on 09/13/2021 by Andres Maharaj MD Screw Left: Femur [employer]/O rtho 05/14/2029 [id number] / / Trigen Adolescent Allison Implanted:Qty: 1 on 11/11/2019 by Andres Maharaj MD at [facility] Explanted:Qty: 1 on 09/13/2021 by Andres Maharaj MD Right: Femur [employer] 10/23/2024 [id number] / / [id number] Description:[id number]-6AL-4V [employer]/Orth o [id number] 4.5mm 45mm Low Profile Internal Capture Femur Screw Bone Trigen - [id number] Implanted:Qty: 1 on 11/11/2019 by Andres Maharaj MD at [facility] Explanted:Qty: 1 on 09/13/2021 by Andres Maharaj MD Right: Femur [employer]/O rtho 04/22/2024 [id number] / / [id number] [employer]/Orth o [id number] 4.5mm 42.5mm Low Profile Internal Capture Femur Screw Bone Trigen - [id number] Implanted:Qty: 1 on 11/11/2019 by Andres Maharaj MD at [facility] Explanted:Qty: 1 on 09/13/2021 by Andres Maharaj MD Right: Femur [employer]/O rtho 03/31/2029 [id number] / / [id number] [employer]/Orth o [id number] 4.5mm 52.5mm Low Profile Internal Capture Femur Screw Bone Trigen - [id number] Implanted:Qty: 1 on 11/11/2019 by Andres Maharaj MD at [facility] Explanted:Qty: 1 on 09/13/2021 by Andres Maharaj MD Right: Femur [employer]/O rtho 12/21/2022 [id number] / / [id number] [employer]/Orth o [id number] Trigen 8.5mm 38cm Antegrade Femur Left 130d Nail Intramedullary - [id number] Implanted:Qty: 1 on 04/28/2020 by Andres Maharaj MD at [facility] Explanted:Qty: 1 on 09/13/2021 by Andres Maharaj MD Left: Femur [employer]/O rtho 05/18/2027 [id number] / / [employer]/Orth o [id number] 4.5mm 42.5mm Low Profile Internal Capture Femur Screw Bone Trigen - [id number] Implanted:Qty: 1 on 04/28/2020 by Andres Maharaj MD at [facility] Explanted:Qty: 1 on 09/13/2021 by Andres Maharaj MD Left: Femur [employer]/O rtho 06/01/2029 [id number] / / Description:Pro[place] [address] [employer] [place] [facility] CLAIMS [employer] [place] [place] [facility] [place] [facility] CLAIMS Advance Directives For more information, please contact: [phone] Documents on File Type Date Recorded Patient 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 Expl anation ADVANCE DIRECTIVE 09/13/2021 2:40 PM * Full Code (Latest Code Status on File) Date Activated Date Inactivated Comments 04/28/2020 5:03 PM 04/29/2020 5:07 PM * Full Code Date Activated Date Inactivated Comments 11/18/2019 2:57 PM 11/19/2019 6:22 PM * Full Code Date Activated Date Inactivated Comments 11/11/2019 2:47 PM 11/12/2019 6:23 PM Care Teams Pass Worker Relationship Specialty Start Date End Date Emilia Han MD [address] [place] [address] PCP - General 05/01/17 Elias Vasques MD [address] [facility] [address] [place] [address] Surgeon Orthopedic Surgery 11/18/19
[2025-02-20 18:45] VITALS: BP 142/114; PULSE 90; RESP 15; TEMP 36.8; O2SAT 100
[2025-02-20 19:02] LABS: Basophils Percent Auto 0.4 % (0.2-1.2); Hematocrit 45.9 % (37.0-47.0); Hemoglobin 15.5 g/dL (12.0-15.0); Immature Granulocyte Absolute 0.03 K/mm3 (0.00-0.031); Immature Granulocyte Percent A 0.4 % (0-0.5); Lymphocytes Absolute Auto 0.43 K/mm3 (0.9-3.2); Lymphocytes Percent Auto 6.4 % (18.3-44.2); Mean Corpuscular HGB Conc 33.8 g/dl (32-36); Mean Corpuscular Hemoglobin 31.2 pg (26-34); Mean Corpuscular Volume 92.4 fl (80-100); Mean Platelet Volume 8.7 fl (7.4-10.4); Monocytes Absolute Auto 0.2 K/mm3 (0.1-0.6); Monocytes Percent Auto 2.8 % (2.6-8.5); Platelet Count Result 318 k/mm3 (150-375); Red Blood Count 4.97 M/mm3 (4.2-5.4); Red Cell Distribution Width 13.7 % (11.5-14.5); White Blood Count 6.7 K/mm3 (4.5-10.0)
--- NOTE | 2025-02-20 19:05 | ED_ITS ---
HPI - Abdominal Pain General Chief Complaint: Abdominal Pain Stated Complaint: abd pain vomiting Time Seen by Provider: 02/20/25 19:03 History of Present Illness HPI narrative: Patient is a 19-year-old female who presents the emergency department this evening complaining of epigastric abdominal pain, nausea and vomiting that has been ongoing for the past week, however, patient states that today it has worsened and patient states that she vomited approximately 8 times today. Patient admits that she still has her gallbladder but states that she has had her appendix removed approximately 3 years ago. Denies any recent illness, any fevers or chills. No additional symptoms or concerns at this time. Related Data Home Medications ?Medication ?Instructions ?Recorded ?Confirmed ?Last Taken ?Type escitalopram oxalate 20 mg tablet 20 mg PO DAILY 11/13/22 11/25/22 Unknown History medroxyprogesterone 150 mg/mL 150 mg IM [id number] 11/13/22 11/25/22 09/08/22 History intramuscular suspension methylphenidate HCl 18 mg 18 mg PO DAILY 11/13/22 11/25/22 Unknown History tablet,extended release 24 hr mirtazapine 7.5 mg tablet 15 mg PO DAILY 11/13/22 11/25/22 Unknown History Allergies Allergy/AdvReac Type Severity Reaction Status Date / Time No Known Allergies Allergy Verified 02/20/25 18:12 Review of Systems 2 Review of Systems: All systems are reviewed and are negative unless stated otherwise in the HPI. [facility] Surgical History Surgical History History of laparoscopic appendectomy laparoscopic appendectomy 11/13/22 Social History Social History Smoking status: Never smoker Smokeless tobacco user: other Additional smoking assessment comments: vape Alcohol intake: current Substance use: current Substance use type: marijuana Lack of Transportation: No Lack of Food: Never True Current Housing: I Have Housing Concerned About Future Housing: No Difficulty Paying Gas/Electric Bills: No Difficulty Paying for Meds: No Currently Unemployed: No Education: High School Diploma/GED Difficulty w/ Childcare or Family Care: No Spiritual care concerns: No Exam 2 Narrative: General: Alert, awake, afebrile, in no acute distress. HEENT: PERRL, no rhinorrhea, no post nasal drip, oropharynx clear. Neck: Trachea midline, no JVD, no lymphadenopathy. Cardiovascular: Regular rate and rhythm, no murmurs, rubs or gallops, no peripheral edema. Respiratory: Clear to auscultation bilaterally, no tachypnea, no wheezing, no rhonchi, no rubs, no respiratory distress. Abdomen: Soft, nontender, nondistended, no rebound, no guarding, no peritoneal signs. Musculoskeletal: No joint swelling or deformity, normal muscle tone. Skin: No rashes or petechia, no signs of infection. Psychiatric: Alert and oriented, normal behavior and judgment for situation. Neurological: Alert and oriented to person, place, and time. Follows all commands. No focal deficits, speech is clear and fluent. Course Vital Signs Vital signs: Vital Signs Temperature 98.3 F 02/20/25 18:45 Pulse Rate 90 02/20/25 18:45 Respiratory Rate 15 02/20/25 18:45 Blood Pressure 142/114 H 02/20/25 18:45 Pulse Oximetry 100 02/20/25 18:45 Oxygen Delivery Room Air 02/20/25 18:45 Temperature 98.3 F 02/20/25 18:45 Pulse Rate 90 02/20/25 18:45 Respiratory Rate 15 02/20/25 18:45 Blood Pressure 142/114 H 02/20/25 18:45 Pulse Oximetry 100 02/20/25 18:45 Oxygen Delivery Room Air 02/20/25 18:45 MDM - Abdominal Pain MDM Narrative Medical decision making narrative: The patient was evaluated by myself in the emergency department. History is obtained from patient who is an independent historian and physical exam was performed. External medical records were reviewed at this time. IV was established and pertinent tests were ordered. Patient was administered 2 L IV fluid bolus with normal saline and 4 mg IV Zofran for nausea/vomiting. Patient continues to remain nauseous despite 2nd dose of IV Zofran as she was administered 10 mg IV Reglan and 25 mg of IV Benadryl. Patient was also administered 40 mg of IV Protonix at this time. Laboratory results obtained revealing hemoglobin of 15 likely secondary to hemoconcentration, bicarb 15, anion gap 21 likely secondary to starvation ketosis, mild transaminitis with an AST of 87 ALT of 96, urinalysis revealed 3+ ketones, 2+ blood, 2+ leuk esterases with 3-5 rbc's and 21-50 white blood cells. At this time, patient was administered 1 g of IV Rocephin for her UTI. Imaging studies obtained included CT abdomen and pelvis which was independently interpreted by me revealing: IMPRESSION: 1. No evidence of appendicitis, diverticulitis or intestinal obstruction. 2. Enhancing area in the uterus which may be fibroid. 3. Thickened wall of the urinary bladder. Evaluation for cystitis advised. 4. Fat infiltration. Differential diagnosis considerations include biliary colic, peptic ulcer disease, gastritis, acute viral syndrome, dehydration, electrolyte derangements, infectious process such as UTI. Comorbidities impacting this visit include none. I have evaluated and discussed social determinants of health with the patient that could potentially impact subsequent diagnosis and treatment plans. On repeat assessment of the patient, reevaluation revealed that the patient is doing well and is in no acute distress. Patient continues to remain nauseous/vomiting despite multiple doses of IV nausea medication, patient is also unable to tolerate p.o. intake and cannot keep fluids. Repeat vital signs were all reviewed and noted to be stable. Differential diagnosis and treatment plan were discussed with the patient at bedside. Patient agrees with discussion and after shared medical decision making agrees with admission. All questions were answered to the patient's satisfaction. Case was discussed with the on-call [facility] Saniya at 2220 and she accepted admission for intractable nausea/vomiting and epigastric pain. Patient was started on a D5 normal saline at a rate of 85 cc per hour due to concern for starvation ketosis. Lab Data 02/20/25 18:57 02/20/25 18:57 Labs: Lab Results 02/20/25 02/20/25 02/20/25 Range/Units 18:57 19:04 19:07 WBC 6.7 (4.5-10.0) K/mm3 RBC 4.97 (4.2-5.4) M/mm3 Hgb 15.5 H (12.0-15.0) g/dL Hct 45.9 (37.0-47.0) % MCV 92.4 (80-100) fl MCH 31.2 (26-34) pg MCHC 33.8 (32-36) g/dl RDW 13.7 (11.5-14.5) % Plt Count 318 (150-375) k/mm3 MPV 8.7 (7.4-10.4) fl Immature Gran % (Auto) 0.4 (0-0.5) % Neut % (Auto) 90.0 H (45.5-73.1) % Lymph % (Auto) 6.4 L (18.3-44.2) % [place] % (Auto) 2.8 (2.6-8.5) % Eos % (Auto) 0.0 (0-4.4) % Baso % (Auto) 0.4 (0.2-1.2) % Lymph # (Auto) 0.43 L (0.9-3.2) K/mm3 [place] # (Auto) 0.2 (0.1-0.6) K/mm3 Eos # (Auto) 0.0 (0-0.3) K/mm3 Baso # (Auto) 0.0 (0.0-0.1) K/mm3 Abs Immat Gran (auto) 0.03 (0.00-0.031) K/mm3 Absolute Neuts (auto) 6.0 (1.3-6.7) K/mm3 Absolute Nucleated RBC 0.000 (0.0-0.012) K/mm3 Nucleated RBC % 0.0 (0.0-0.2) % Sodium 136 L (137-145) mmol/L Potassium 4.1 (3.4-5.0) mmol/L Chloride 100 (98-107) mmol/L Carbon Dioxide 15 L (22-30) mmol/L Anion Gap 21 H (4-12) mmol/L BUN < 2 L (7-17) mg/dL Creatinine 0.53 L (0.7-1.0) mg/dL Estim Creat Clear Calc 132 ml/min Estimated GFR > 60 (59 - ) Glucose 127 H (65-110) mg/dL Calcium 9.7 (8.4-10.2) mg/dL Magnesium 2.0 (1.6-2.3) mg/dL Total Bilirubin 0.6 (0.2-1.3) mg/dL AST 87 H (14-36) U/L ALT 96 H (6-35) U/L Alkaline Phosphatase 112 (38-126) U/L Total Protein 8.0 (6.3-8.2) g/dL Albumin 5.2 H (3.5-5.1) g/dL Lipase 83 (23-300) U/L Urine Color Yellow (Yellow) Urine Appearance Clear (Clear) Urine pH 6.5 (5.0-9.0) Ur Specific Guys 1.018 (1.001-1.035) Urine Protein Trace (Negative) mg/dL Urine Glucose (UA) Negative (Negative) mg/dL Urine Ketones 3+ H (Negative) mg/dL Ur Blood (Man) 2+ H (Negative) Urine Nitrate Negative (Negative) Urine Bilirubin Negative (Negative) Urine Urobilinogen 0.2 (<2.0) mg/dL Add Ur Microanalysis Reviewed Leukocyte Esterase Rfl 2+ H (Negative) ARTURO/UL Urine RBC 3-5 H (0-2) /hpf Urine WBC 21-50 H (0-3) /hpf Ur Squamous Epith Cells Occasional (Few) /hpf Urine Bacteria None seen /hpf Urine Casts 0-2 Urine Mucus Present /lpf POC Urine HCG, Qual Negative (Negative) Urine Opiates Screen Negative (Negative) Urine Methadone Screen Negative (Negative) Ur Barbiturates Screen Negative (Negative) Ur Phencyclidine Scrn Negative (Negative) Ur Amphetamine Screen Negative (Negative) U Benzodiazepines Scrn Negative (Negative) Urine Cocaine Screen Negative (Negative) U Cannabinoids Screen Negative (Negative) Imaging Data Radiologist's impression: ITS Impressions Abdomen/Pelvis CT 02/20/25 20:03 IMPRESSION: 1. No evidence of appendicitis, diverticulitis or intestinal obstruction. 2. Enhancing area in the uterus which may be fibroid. 3. Thickened wall of the urinary bladder. Evaluation for cystitis advised. 4. Fat infiltration. Discharge Plan Discharge Clinical Impression: Acute dehydration, High anion gap metabolic acidosis, Ketosis, Abdominal pain, UTI (urinary tract infection), Transaminitis Patient Disposition: Still a Patient Condition: Improved Instructions: Dehydration (DC), Urinary Tract Infection in Women (DC), Abdominal Pain (ED) Additional Instructions: Please follow-up with your family doctor within the next 3-5 days. Return to the emergency department if any new or worsening symptoms develop. Take the prescribed antibiotic as instructed for your urinary tract infection. Maintain your oral hydration by drinking lots of fluids. Use the prescribed Zofran as needed for nausea/vomiting. Patient Language: Malian Prescriptions: New cephalexin 500 mg capsule 500 mg PO Q12H 5 Days Qty: 10 0RF ondansetron 4 mg tablet,disintegrating 4 mg PO Q8H PRN (Reason: nausea and vomiting) Qty: 10 0RF No Action methylphenidate HCl 18 mg tablet extended release 24hr 18 mg PO DAILY medroxyprogesterone 150 mg/mL suspension 150 mg IM [id number] escitalopram oxalate 20 mg tablet 20 mg PO DAILY mirtazapine 7.5 mg tablet 15 mg PO DAILY Time of Disposition: 20:46
[2025-02-20 19:09] LABS: BEDSIDEPREGUCG Negative (Negative)
--- OUTSIDE RECORDS SUMMARY | 2025-02-20 19:09 | XMS_ITS | Referral Summary ---
Author Organization [facility] Address [address] [place] [address] Care Team Providers Care Supervisor [employer] Name Role Phone Emilia Han MD Primary Care Provider + Elias Vasques MD Unavailable [phone] Allergies No known active allergies Medications [...] (06/04/2021): Added automatically from request for surgery [id number] Syncope 11/18/2019 Assessment & Plan (11/18/2019 3:57 PM CHILD CENTER ASSISTANT): Larissa Maurice is a 14 y.o. female [...] - Pain control - Cyclobenzaprine q8h PRN; [place] q6hr PRN - PT evaluate and treat [...] on file Legal Sex Female 12:52 PM CHILD CENTER ASSISTANT Gender Identity Female 11/24/2023 3:03 PM CHILD CENTER ASSISTANT Sexual Orientation Bisexual 11/24/2023 3: 03 PM CHILD CENTER ASSISTANT Last Filed Vital Signs Vital Sign Reading Time Taken Comments Blood Pressure 130/84 10/04/2024 11:10 AM CHILD CENTER ASSISTANT Pulse 81 10/04/2024 11:10 AM CHILD CENTER ASSISTANT Temperature 36.1 C (97 F) 10/04/2024 10:47 AM CHILD CENTER ASSISTANT Respiratory Rate 25 10/04/2024 11:10 AM CHILD CENTER ASSISTANT Oxygen Saturation 94% 10/04/2024 11:10 AM CHILD CENTER ASSISTANT Inhaled Oxygen Concentration - - Weight 63.5 kg (140 lb) 10/04/2024 8:08 AM CHILD CENTER ASSISTANT Height 167.6 cm (5' 6 ) 10/04/2024 8:08 AM CHILD CENTER ASSISTANT Body Mass Index 22.6 10/04/2024 8:08 AM CHILD CENTER ASSISTANT Plan of Treatment Not on file Medical Devices Explanted Type Area Merchandise Carrier Device Identifier Shelf Expiration Date Model / Serial / Lot [employer]/Orth o [id number] 4.5mm 50mm Low Profile Internal Capture Femur Screw Bone Trigen - [id number] Implanted:Qty: 1 on 04/28/2020 by Andres Maharaj MD at [facility] Explanted:Qty: 1 on 09/13/2021 by Andres Maharaj MD Screw Left: Femur [employer]/O rtho 05/14/2029 [id number] / / Trigen Adolescent Allison Implanted:Qty: 1 on 11/11/2019 by Andres Maharaj MD at [facility] Explanted:Qty: 1 on 09/13/2021 by Andres Maharaj MD Right: Femur [employer] 10/23/2024 [id number] / / [id number] Description:TI-6AL-4V [employer]/Orth o [id number] 4.5mm 45mm Low Profile Internal Capture Femur Screw Bone Trigen - [id number] Implanted:Qty: 1 on 11/11/2019 by Andres Maharaj MD at [facility] Explanted:Qty: 1 on 09/13/2021 by Andres Maharaj MD Right: Femur [employer] rtho 04/22/2024 [id number] / / [id number] [employer]/Orth o [id number] 4.5mm 42.5mm Low Profile Internal Capture Femur Screw Bone Trigen - [id number] Implanted:Qty: 1 on 11/11/2019 by Andres Maharaj MD at [facility] Explanted:Qty: 1 on 09/13/2021 by Andres Maharaj MD Right: Femur [employer]/O rtho 03/31/2029 [id number] / / [id number] [employer]/Orth o [id number] 4.5mm 52.5mm Low Profile Internal Capture Femur Screw Bone Trigen - [id number] Implanted:Qty: 1 on 11/11/2019 by Andres Maharaj MD at [facility] Explanted:Qty: 1 on 09/13/2021 by Andres Maharaj MD Right: Femur [employer]o 12/21/2022 [id number] / / [id number] [employer]/Orth o [id number] Trigen 8.5mm 38cm Antegrade Femur Left 130d Nail Intramedullary - [id number] Implanted:Qty: 1 on 04/28/2020 by Andres Maharaj MD at [facility] Explanted:Qty: 1 on 09/13/2021 by Andres Maharaj MD Left: Femur [employer]tho 05/18/2027 [id number] / / [employer]/Orth o [id number] 4.5mm 42.5mm Low Profile Internal Capture Femur Screw Bone Trigen - [id number] Implanted:Qty: 1 on 04/28/2020 by Andres Maharaj MD at [facility] Explanted:Qty: 1 on 09/13/2021 by Andres Maharaj MD Left: Femur [employer] rtho 06/01/2029 [id number] / / Description:[place] [address] [employer] [place] [facility] CLAIMS [employer] [place] [employer] [place] [facility] CLAIMS [employer] [place] [facility] CLAIMS Advance Directives For more information, please contact: [phone] Documents on File Type Date Recorded 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 [place] [address] PCP - General 05/01/17 Elias Vasques MD [address] [facility] [address] [place] [address] Surgeon Orthopedic Surgery 11/18/19
--- OUTSIDE RECORDS SUMMARY | 2025-02-20 19:09 | XMS_ITS | Clinical Summary ---
Author Organization [facility] Address [address] [place] [id number] Care Team Providers Care Reinforcer Name Role Phone Unavailable Primary Care Provider [...] patient's age to complete this topic Insurance [facility]
--- OUTSIDE RECORDS SUMMARY | 2025-02-20 19:10 | XMS_ITS | Continuity of Care Document ---
Author Organization [facility] [place] [address] [place] [address] Phone Care Team Providers Care Blower [employer] Name Role Phone Christine Pradhan Unavailable Unavailable [...] Copied on Encounter Office/outpat ient Visit, [facility], [address], [place], [place], [id number], [place] tel:[phone] [facility] No Information 0 Carolynn King. [address] , [address], [place], [address], [place]. tel:[phone] Office/outpat ient Visit, [facility], [address] [place] [address] [address], [place], [place], [id number], [place] tel:[phone] [facility] No Information Mar-0 9-201 0 Carolynn Aparicion. [address] , [address], [place], [place], [facility], . tel:[phone] [facility], [address] [place] [address] [address], [place], [place], [address], [place] tel:[phone] [facility] [place] No Information May-0 6-200 9 Carolynn AparicionRoxane [address] , [address], [place], [place], [facility], . tel:[phone] Office/outpat ient Visit, [facility], [address] [place] [address] [address], [place], [place], [address], [place] tel:[phone] [facility] No Information Fe-1 0-200 9 Carolynn AparicionRoxane [address] , [address], [place], [place], [facility], [place]. tel:[phone] [facility], [address] [place] [address] [address], [place], [place], [address], [place] tel:[phone] [facility] No Information Apr-2 5-200 8 Carloynn Sneed [address] , [address], [place], [facility], [place]. tel:[phone] Office/outpat ient Visit, [facility], [address] [place] [address] [address], [place], [place], [address], [place] tel:[phone] [facility] No Information Dec-2 5-200 8 Carolynn AparicionRoxane [address], [place], [facility], [place]. tel:[phone] [facility], [address], [place], [place], [address], [place] tel:[phone] [facility] No Information 7 Pradhan Christine. [address], [place], [facility], [place]. tel:[phone] [facility], [address], [place], [place], [address], [place] tel:[phone] [facility] No Information 7 Pradhan Christine. [address] , [address], [place], [facility], [place]. tel:[phone] [facility], [address], [place], [place], [address], [place] tel:[phone] [facility] No Information 7 Pradhan Christine. [address] , [address], [place], [facility], [place]. tel:[phone] [facility], [address], [place], [place], [address], [place] tel:[phone] [facility] No Information 7 Pradhan Christine. [address] , [address], [place], [facility], [place]. tel:[phone] [facility], [address], [place], [place], [address], [place] tel:[phone] [facility] No Information 7 Pradhan Christine. [address], [place], [facility], [place]. tel:[phone] [facility], [address], [place], [place], [address], [place] tel:[phone] [facility] No Information Carolynn Sneed [address] , [address], [place], [address], [place]. tel:[phone] Office/outpat ient Visit, [facility], [address], [place], [place], [address], [place] tel:[phone] [facility] No Information Carolynn King. [address] , [address], [place], [address], [place]. tel:[phone] Family History Family Member Type Diagnosis Age At Onset No Information Payers Payer name Insurance type Covered democrat ID Authoriza tion(s) No Information Social History [...]
--- OUTSIDE RECORDS SUMMARY | 2025-02-20 19:10 | XMS_ITS | Continuity of Care Document ---
Author Name [facility] Organization [facility] Care Team Providers Care Body Design Checker Name Role Phone [facility] Unavailable Unavailable Problems Combined list of problems [...] Inactive Condition NEW ORDER 1 Last CON [id number] CURT MAURICE *MANOLO* OPHTHALMOLOGY CONSULT at [facility] on 27 Jun [phone]@[id number] Duty Station/Unit: strabismus URBANO ZHANG C[employer]/SIGNATURE ABSENT/PRE-ACTIV E 2yo pt being followed by, Dr. Carolynn King in [place], [place] contact number [phone]/fax [phone]. Please approve for evaluation and treatment +for continuity of care. please authorize for a one year period or until . thanks, diagnosis is strabimus. pt has appt [id number] thanks please fax authorization to provider when [...] Condition [employer] 15 Jan 2008@6138 Page 1Personal Data - Privacy Act of 1973 (PL [id number])========= ======NEW ORDER 1 Last CON [id number] CURT MAURICE *MANOLO* OPHTHALMOLOGY CONSULT at [facility] on 15 Jan [phone]@[phone] Duty Station/Unit: strabismus URBANO ZHANG C[employer]/SIGNATURE [...] Reported Comments Source NO OUTPUT FOR NCID [id number] Drug allergy (disorder) active 03/18/2008 [employer] ([facility] Immunizations Combined list of available immunizations from the Department of Defense and Veterans Affairs facilities. Immunization Series Date Given Administered By Site Reaction Lot Number CVX Code Drug Hairspring I Inspector Status Comments Source measles, mumps and rubella virus vaccine 2 2007 Unknown, Provider [id number] Merck (MSD) complet ed measles, mumps and rubella virus vaccine DoD poliovirus vaccine, inactivated 4 2007 Unknown, Provider [id number] Sanofi Pasteur ([facility]) complet ed polioviru s vaccine, inactivat ed DoD diphtheria, tetanus toxoids and acellular pertu is vaccine 5 2007 Unknown, Provider [id number] 20 Picture Production CompanyOlyphant ([facility]) complet ed diphtheri a, tetanus toxoids and acellular pertussis vaccine DoD varicella virus vaccine 2 2007 Unknown, Provider [id number] 21 Merck ([facility]) complet ed varicella virus vaccine DoD hepatitis A vaccine, pediatric dosage, unspecified formulation 1 2005 Unknown, Provider [id number] 31 [employer] Production CompanyOlyphant ([facility]) complet ed hepatitis A vaccine, pediatric dosage, unspecifi ed formulati on DoD influenza virus vaccine, split virus (incl. purified surface antigen)-reti red CODE 1 2003 Unknown, Provider [id number] Sanofi Pasteur ([facility]) complet ed influenza virus vaccine, split virus (incl. purified surface antigen)- retired CODE DoD diphtheria, tetanus toxoids and acellular pertu is vaccine 1 2003 Unknown, Provider [id number] 20 [employer]Olyphant ([facility]) complet ed diphtheri a, tetanus toxoids and [...] antigen)-reti red CODE 1 2003 Unknown, Provider [id number] 15 Sanofi Pasteur ([facility]) complet ed influenza virus vaccine, split virus (incl. purified surface antigen)- retired CODE DoD varicella virus vaccine 1 2003 Unknown, Provider [id number] 21 Merck (MSD) complet ed varicella virus vaccine DoD pneumococcal conjugate vaccine, 7 valent 3 2003 Unknown, Provider [id number] Zakia ([facility]) complet ed pneumococ goyo conjugate vaccine, 7 [...] vaccine, 7 valent 2 2002 Unknown, Provider [id number] 100 Phoebe-Zane ([facility]) complet ed pneumococ goyo conjugate vaccine, 7 valent DoD DTaP-hepatiti s B and poliovirus vaccine 2 2002 Unknown, Provider [id number] 110 [facility] ed DTaP-hepa titis B and polioviru s vaccine DoD Haemophilus influenzae type b vaccine, PRP-OMP conjugate 1 2002 Unknown, Provider [id number] 49 Merck (MSD) complet ed Haemophil us influenza e type b vaccine, PRP-OMP conjugate DoD pneumococcal conjugate vaccine, 7 valent 1 2002 Unknown, Provider [id number] 100 Wycarrol-Zane ([facility]) complet ed pneumococ goyo conjugate vaccine, 7 valent DoD DTaP-hepatiti s B and poliovirus vaccine 1 2002 Unknown, Provider [id number] 110 SmithKline ([facility]) complet ed DTaP-hepa titis [...] ADM Date DC Date Status Disposition Source [address] [place] [address] Russel B ([facility]Ped iatrics) OUTPATIENT [id number] 12 month well child MARLA PANDEY 03/16 Released w/o Limitations [address] [place] [address] Russel B [facility]P ediatri cs[place] [address] [place] [address] [employer]el B ([facility]Ped iatrics) OUTPATIENT [id number] 1 yr old BRODIE LIZARRAGA A 03/24 Released w/o Limitations [facility] Russel B ([facility])(P ediatri cs) [address] [place] [address] Russel B [facility]Ped iatrics) OUTPATIENT [id number] pink eye BRODIE LIZARRAGA A 04/21 Released w/o Limitations [address] [place] [address] Russel B ([facility])(P ediatri cs) [address] [place] [address] Russel B [facility]Ped iatrics) TELE CONSULT [id number] needs new referra PHILIP Aleman 03/[address] [place] [address] Russel [facility])(P ediatri cs) [address] [place] [address] [employer]el [facility])(Ped iatrics) TELE CONSULT [id number] needs referra l retro to 10 jan 2006 for oph[address] Dr. Strong is the provide r PHILIP RICK 03/[address] [place] [address] [employer]el [facility])(P ediatri cs) [address] [place] [address] Russel B [facility]Ped iatrics) OUTPATIENT [id number] pre school JACK Carlos 07/04 Released w/o Limitations [address] [place] [address] Russel [facility])(P ediatri cs) [address] [place] [address] [employer]el [facility])(Ped iatrics) TELE CONSULT [id number] Referra l PHILIP Crespo 08/[address] [place] [address] Russel B [facility]P ediatri cs) [address] [place] [address] Russel B [facility]) OUTPATIENT [id number] L eye Redness ROCÍO ALEJO 09/19 Released w/o Limitations [address] [place] [address] Russel B [facility]) [address] [place] [address] [employer] ([facility])(Ped iatrics) OUTPATIENT [id number] cough/p ossible uti CARMENCITA ZHANG 01/29 Released w/o Limitations [employer] ([facility])(P ediatri cs) [facility] [employer] ([facility])(Ped iatrics) TELE CONSULT [id number] [facility] CARMENCITA ZHANG 01/29 [facility] [employer] ([facility])(P ediatri cs) [facility] [employer] ([facility]Ped iatrics) TELE CONSULT [id number] FEVER LADI SERRANO 01/30 [facility] [employer] ([facility])(P ediatri cs) [employer] ([facility])(Ped iatrics) OUTPATIENT [id number] Problem s going to [facility] per PCM C#[id number] [facility] CARMENCITA ZHANG 02/01 Released w/o Limitations [facility] [employer] ([facility])(P ediatri cs) [facility] [employer] ([facility]Ped iatrics) TELE CONSULT [id number] Pt needs a stephanie dnog appt for that doc on 11sep LADI SERRANO 06/26 [facility] [employer] ([facility])(P ediatri cs) [facility] [employer] ([facility])(Ped iatrics) OUTPATIENT [id number] chest congest /cough/ temp CHRISTIANO CROWE 11/13 Released w/o Limitations [facility] [employer] ([facility])(P ediatri cs) [facility] [employer] ([facility]Ped iatrics) TELE CONSULT [id number] MARVIN Lenz 01/14 [facility] [employer] ([facility])(P ediatri cs) [facility] [employer] ([facility])(Ped iatrics) OUTPATIENT [id number] [facility] physica l CARMENCITA ZHANG 03/27 Released w/o Limitations [facility] [employer] ([facility])(P ediatri cs) [facility] [employer] ([facility]Ped iatrics) TELE CONSULT [id number] ARMANDO Abdul 11/17 [facility] [employer] ([facility])(P ediatri cs) [facility] [employer] ([facility])(Ped iatrics) TELE CONSULT [id number] referra saravia JADENAniya VIOLA, NINO 05/[address] [place] [address] Group [employer] [facility])(P ediatri cs) [address] [place] [address] [facility] TELE CONSULT [id number] referra l/anibal i JADENAniya HORTAVICTOR MANUEL, NINO 11/[address] [place] [address] Group [employer] [facility])(P ediatri cs) [address] [place] [address] [employer] [facility])(Ped iatrics) TELE CONSULT [id number] referra saravia JADENAniya VIOLA, NINO 12/15 Referred for Appointment [address] [place] [address] Group [employer] [facility])(P ediatri cs) [address] [place] [address] [employer] [facility])(Ped iatrics) TELE CONSULT [id number] referra ARMANDO Wright 05/[address] [place] [address] Group [employer] [facility])(P ediatri cs) [address] [place] [address] [employer] [facility])(Sco tt Peds Team Jason) TELE CONSULT [id number] Notes Entered by: ROSANA FERNÁNDEZ 29 Mar 2012 1541 ------- ------- ------- ------- -- Referra rani Zhang - [id number] [address] [place] [address] JADENAniya NINO ROD 03/[address] [place] [address] Group [employer] [facility])(S cott Peds Team Jason) [address] [place] [address] [employer] [facility])(Sco tt Peds Team Jason) TELE CONSULT [id number] Notes Entered by: Raj FELICIANO 10 May 2013 1054 ------- ------- ------- ------- -- Stephanie saravia to Dr Pradhan in JERAMY Araya 05/[address] [place] [address] Group [employer]el [facility])(S cott Peds Team Jason) [address] [place] [address] [employer])(Sco tt Peds Team Jason) TELE CONSULT [id number] Notes Entered by: TAVO ALCANTARA 01 May 2014 0835 ------- ------- ------- ------- -- Ophthal mology CONSTANCE Montanez 05/[address] [place] [address])([facility] [place] Peds Team [place]) [address] [place] [address])(Sco tt Ped Team Jason) TELE CONSULT [id number] Notes Entered by: LYNSEY ALEXIS 22 May 2015 1002 ------- ------- ------- ------- -- Ophthal molrhetty WILIAN Reed 05/22 Referred for Appointment [address] [place] [address])([facility] Team Jason) [address] [place] [address])([place] [facility] Res Tm [place]) TELE CONSULT [id number] Notes Entered by: SERINA WOODALL 20 May 2016 1346 ------- ------- ------- ------- -- STAT Stephanie Jovel (appt May)/Avi yce/618 .593.81 32 ALYSSA WONG 05/[address] [place] [address])([facility] Res Tm [place]) [address] [place] [address])([place] [facility] F[facility] Res Tm [place]) TELE CONSULT [id number] Notes Entered by: TAMMY VARGAS 24 May 2016 0915 ------- ------- ------- ------- -- Ref discrep gissel -appt tomorro w at 1500/Avi yce/618 .593.81 32 ALYSSA Rivas 05/[address] [place] [address])([facility] [place]) [address] [place] [address])([facility] Res Tm [place]) TELE CONSULT [id number] Notes Entered by: BRANDI TEE 24 May 2016 0953 ------- ------- ------- ------- -- Updated Referra rani/ Josh / [phone] MARVINBRETStef Gallo 05/[address] [place] [address])(S [facility] Res Tm [place]) [address] [place] [address])([facility] Res [place]) TELE CONSULT [id number] Notes Entered by: SERINA WOODALL 19 May 2017 1439 ------- ------- ------- ------- -- STAT Referra l Renewal Request (appt May)/Avi bone/[phone] .[phone] 32 WONGBRETStef Gallo 05/[address] [place] [address])([facility] Res Tm [place]) [address] [place] [address])([facility] [place]) TELE CONSULT [id number] Notes Entered by: DANE PIPER 30 Oct 2017 1240 ------- ------- ------- ------- -- Network Results -OPHTHA LMOLOGY 05/25/17 MILIND PIERCE 10/[address] [place] [address])([facility] Res Tm [place]) [address] [place] [address])(Sco tt [facility] [place]) TELE CONSULT [id number] Notes Entered by: MARY JANE DE 27 May 2019 1512 ------- ------- ------- ------- -- Referra l request /jeannie / eld MARVIN ALYSSA M 05/27 Other Not Elsewhere Classified [address] [place] [address])([facility] [place]) Procedures Combined list of: 1) Procedures from Department of Veterans Affairs facilities going back up to thelast 18 months, not all VA non-surgical procedures are included; 2) All procedures from the Department of Defense facilities. Procedure Procedure Type Code Date Perfomer Comments [facility] e IMMUNIZATION ADMINISTRATION (INCLUDES PERCUTANEOUS, INTRADERMAL, [...] DOSAGE-2 DOSE SCHEDULE, FOR INTRAMUSCULAR USE 03/27/2008 [facility] HEPATITIS A VACCINE (HEPA), PEDIATRIC/ADOLESCENT DOSAGE-2 DOSE SCHEDULE, FOR INTRAMUSCULAR USE 07/04/2006 DoD DIPHTHERIA, TETANUS TOXOIDS, ACELLULAR PERTUSSIS VACCINE, HEPATITIS B, AND INACTIVATED POLIOVIRUS VACCINE ([id number]), FOR INTRAMUSCULAR USE 2003 [facility] DIPHTHERIA, TETANUS TOXOIDS, AND ACELLULAR PERTUSSIS VACCINE (DTAP), WHEN ADMINISTERED TO INDIVIDUALS YOUNGER THAN 7 YEARS, FOR INTRAMUSCULAR USE 2003 [facility] Non-Physician Phone Call To Patient/Provider Brief (5-10min) Non-Physician Phone Call To Patient/Provider Brief (5-10min) [id number] 05/19/2017 ALYSSA WONG DoD Non-Physician Phone Call To Pt/Provider Intermed (11-20 min) Non-Physician Phone Call To Pt/Provider Intermed (11-20 min) [id number] 05/25/2016 ALYSSA WONG Non-Physician Phone Call To Patient/Provider Brief (5-10min) Non-Physician Phone Call To Patient/Provider Brief (5-10min) [id number] 05/24/2016 ALYSSA WONG DoD Non-Physician Phone Call To Patient/Provider Brief (5-10min) Non-Physician Phone Call To Patient/Provider Brief (5-10min) [id number] 05/20/2016 ALYSSA WONG DoD Non-Physician Phone Call To Patient/Provider Brief (5-10min) Non-Physician Phone Call To Patient/Provider Brief (5-10min) [id number] 05/22/2015 WILIAN ALEXIS [facility] Non-Physician Phone Call To Patient/Provider Brief (5-10min) Non-Physician Phone Call To Patient/Provider Brief (5-10min) [id number] 05/01/2014 CONSTANCE ALCANTARA [facility] Non-Physician Phone Call To Pt/Provider Intermed (11-20 min) Non-Physician Phone Call To Pt/Provider Intermed (11-20 min) [id number] 05/10/2013 JERAMY FERRO [facility] Non-Physician Phone Call To Patient/Provider Brief (5-10min) Non-Physician Phone Call To Patient/Provider Brief (5-10min) [id number] 04/03/2012 NINO GARCIA [facility] Hep A Vac Ped/Adol Dosage (Intramusc Use) 2 Dose Schedule Hep A Vac Ped/Adol Dosage (Intramusc Use) 2 Dose Schedule 46381 03/27/2008 [facility] Vaccines Viral Varicella (Active) Vaccines Viral Varicella (Active) 74960 03/27/2008 [facility] Vaccines Viral Measles, Mumps and Rubella, Live Vaccines Viral Measles, Mumps and Rubella, Live 38106 03/27/2008 [facility] Vaccines Viral Polio, Inactivated (Salk) Vaccines Viral Polio, Inactivated (Salk) 36656 03/27/2008 [facility] DTaP Vaccine DTaP Vaccine 84384 03/27/2008 [facility] Immunization Administration One Vaccine Immunization Administration One Vaccine 23307 03/27/2008 [facility] Immunization Administration Each Additional Vaccine 03/27/2008 [facility] Immunization Administration One Vaccine Immunization Administration One Vaccine 67668 07/04/2006 JACK ZHAO [facility] Hep A Vac Ped/Adol Dosage (Intramusc Use) 2 Dose Schedule Hep A Vac Ped/Adol Dosage (Intramusc Use) 2 Dose Schedule 44114 07/04/2006 JACK ZHAO [facility] Social History Combined list of available smoking, tobacco, and other social history from Department of Defense and Veterans Affairs facilities. Social History Type Response Date Comment Sour e This section is an empty social history section. [facility]
--- OUTSIDE RECORDS SUMMARY | 2025-02-20 19:10 | XMS_ITS | Clinical Summary ---
Author Organization [facility] Address [address] [place] [address] Care Team Providers Care Machine Wood Sander Name Role Phone Emilia Han MD Primary Care Provider + Elias Vasques MD Unavailable [phone] Allergies No known active allergies Medications [...] (06/04/2021): Added automatically from request for surgery [id number] Syncope 11/18/2019 Assessment & Plan (11/18/2019 3:57 PM ASSISTANT PROSECUTING ATTORNEY): Larissa Maurice is a 14 y.o. female [...] - Pain control - Cyclobenzaprine q8h PRN; Braham q6hr PRN - PT evaluate and treat [...] TW Conv) Diabetes Mother Diabetes Other Diabetes [facility] - --gestational in mom (Added by TW [...] on file Legal Sex Female 12:52 PM ASSISTANT PROSECUTING ATTORNEY Gender Identity Female 11/24/2023 3:03 PM ASSISTANT PROSECUTING ATTORNEY Sexual Orientation Bisexual 11/24/2023 3: 03 PM ASSISTANT PROSECUTING ATTORNEY Obstetrics History Last Filed Vital Signs Vital Sign Reading Time Taken Comments Blood Pressure 130/84 10/04/2024 11:10 AM ASSISTANT PROSECUTING ATTORNEY Pulse 81 10/04/2024 11:10 AM ASSISTANT PROSECUTING ATTORNEY Temperature 36.1 C (97 F) 10/04/2024 10:47 AM ASSISTANT PROSECUTING ATTORNEY Respiratory Rate 25 10/04/2024 11:10 AM ASSISTANT PROSECUTING ATTORNEY Oxygen Saturation 94% 10/04/2024 11:10 AM ASSISTANT PROSECUTING ATTORNEY Inhaled Oxygen Concentration - - Weight 63.5 kg (140 lb) 10/04/2024 8:08 AM ASSISTANT PROSECUTING ATTORNEY Height 167.6 cm (5' 6 ) 10/04/2024 8:08 AM ASSISTANT PROSECUTING ATTORNEY Body Mass Index 22.6 10/04/2024 8:08 AM ASSISTANT PROSECUTING ATTORNEY Plan of Treatment Health Maintenance Due Date [...] 04/16/2020, 014 Medical Devices Explanted Type Area Supplier Specialist Device Identifier Shelf Expiration Date Model / Serial / Lot [employer]/Jacob o [id number] 4.5mm 50mm Low Profile Internal Capture Femur Screw Bone Trigen - [id number] Implanted:Qty: 1 on 04/28/2020 by Andres Maharaj MD at [facility] Explanted:Qty: 1 on 09/13/2021 by Andres Maharaj MD Screw Left: Femur [employer]/O rtho 05/14/2029 [id number] / / Trigen Adolescent Allison Implanted:Qty: 1 on 11/11/2019 by Andres Maharaj MD at [facility] Explanted:Qty: 1 on 09/13/2021 by Andres Maharaj MD Right: Femur [employer] 10/23/2024 [id number] / / [id number] Description:TI-6AL-4V [employer]/Orth o [id number] 4.5mm 45mm Low Profile Internal Capture Femur Screw Bone Trigen - [id number] Implanted:Qty: 1 on 11/11/2019 by Andres Maharaj MD at [facility] Explanted:Qty: 1 on 09/13/2021 by Andres Maharaj MD Right: Femur [employer]/O rtho 04/22/2024 [id number] / / [id number] [employer]/Orth o [id number] 4.5mm 42.5mm Low Profile Internal Capture Femur Screw Bone Trigen - [id number] Implanted:Qty: 1 on 11/11/2019 by Andres Maharaj MD at [facility] Explanted:Qty: 1 on 09/13/2021 by Andres Maharaj MD Right: Femur [employer]/O rtho 03/31/2029 [id number] / / [id number] [employer]/Orth o [id number] 4.5mm 52.5mm Low Profile Internal Capture Femur Screw Bone Trigen - [id number] Implanted:Qty: 1 on 11/11/2019 by Andres Maharaj MD at [facility] Explanted:Qty: 1 on 09/13/2021 by Andres Maharaj MD Right: Femur [employer] rtho 12/21/2022 [id number] / / [id number] [employer]/Orth o [id number] Trigen 8.5mm 38cm Antegrade Femur Left 130d Nail Intramedullary - [id number] Implanted:Qty: 1 on 04/28/2020 by Andres Maharaj MD at [facility] Explanted:Qty: 1 on 09/13/2021 by Andres Maharaj MD Left: Femur [employer]/O rtho 05/18/2027 [id number] / / [employer]/Orth o [id number] 4.5mm 42.5mm Low Profile Internal Capture Femur Screw Bone Trigen - [id number] Implanted:Qty: 1 on 04/28/2020 by Andres Maharaj MD at [facility] Explanted:Qty: 1 on 09/13/2021 by Andres Maharaj MD Left: Femur [employer]/O rtho 06/01/2029 [id number] / / Description:Pro[place] [address] [facility] [id number] [place] [id number] [place] COMS Interactive CHOICE [place] [facility] CLAIMS [id number] [place] [facility] CLAIMS Advance Directives For more information, please contact: [phone] Documents on File Type Date Recorded Patient Manager Enterprise Expl anation ADVANCE DIRECTIVE 09/13/2021 2:40 PM * Full Code (Latest Code Status on File) Date Activated Date Inactivated Comments 04/28/2020 5:03 PM 04/29/2020 5:07 PM * Full Code Date Activated Date Inactivated Comments 11/18/2019 2:57 PM 11/19/2019 6:22 PM * Full Code Date Activated Date Inactivated Comments 11/11/2019 2:47 PM 11/12/2019 6:23 PM Care Teams Machine Wood Sander Relationship Specialty Start Date End Date Emilia Han MD [address] [place] [address] PCP - General 05/01/17 Elias Vasques MD [facility] [address] [place] [address] Surgeon Orthopedic Surgery 11/18/19
[2025-02-20 19:12] LABS: Alanine Aminotransferase 96 U/L (6-35); Albumin Level 5.2 g/dL (3.5-5.1); Alkaline Phosphatase 112 U/L (38-126); Anion Gap 21 mmol/L (4-12); Aspartate Amino Transferase 87 U/L (14-36); Bilirubin,Total 0.6 mg/dL (0.2-1.3); Calcium 9.7 mg/dL (8.4-10.2); Carbon Dioxide 15 mmol/L (22-30); Chloride 100 mmol/L (98-107); Estimated CRCL calculation 132 ml/min; Estimated Glomerular Filt Rate > 60; Glucose 127 mg/dL (65-110); Lipase 83 U/L (23-300); Potassium 4.1 mmol/L (3.4-5.0); Sodium 136 mmol/L (137-145)
[2025-02-20] MEDS: ONDANSETRON INJ 4 MG/2 ML VIAL IV PUSH ×2 (19:12→20:26)
[2025-02-20] MEDS: SODIUM CHLORIDE 0.9% IV 1,000 ML 999 ML IV CONT ×2 (19:12→19:56)
[2025-02-20 19:15] LABS: Blood Urea Nitrogen < 2 mg/dL (7-17)
[2025-02-20 19:44] LABS: Add Urine Microscopic? YES; Appearance Urine Clear (Clear); Bacteria Urine None Seen /hpf; Bilirubin Urine Negative (Negative); Blood Urine 2+ (Negative); Color Urine Yellow (Yellow); Glucose Urine UA Negative (Negative); Ketones Urine 3+ mg/dL (Negative); Leukocyte Esterase Ur 2+ LEU/UL (Negative); Mucus Urine Present /lpf; Need Manual Microscopic Reviewed; Nitrate Urine Negative (Negative); Non Pathogenic Casts 0-2; Protein Urine Trace mg/dL (Negative); Specific Grav Ur 1.018 (1.001-1.035); Squamous Epithelial Cell Urine Occasional /hpf (Few); Urobilinogen Urine 0.2 mg/dL (<2.0); WBC Urine 21-50 /hpf (0-3); pH Urine 6.5 (5.0-9.0)
[2025-02-20 20:45] LABS: Amphetamine Screen Urine Negative (Negative); Barbiturate Screen Urine Negative (Negative); Benzodiazepines Screen Urine Negative (Negative); Cannabinoid Screen Urine Negative (Negative); Cocaine Screen Urine Negative (Negative); Methadone Screen Urine Negative (Negative); Opiate Screen Urine Negative (Negative); Phencyclidine Screen Urine Negative (Negative)
[2025-02-20] MEDS: METOCLOPRAMIDE HCL INJ 10 MG/2 ML VIAL IV PUSH (21:07)
[2025-02-20] MEDS: diphenhydrAMINE HCl INJ 50 MG/ML VIAL 25 MG IV PUSH (21:07)
[2025-02-20] MEDS: PANTOPRAZOLE SODIUM IV 40 MG VIAL IV PUSH (21:08)
[2025-02-20] MEDS: SODIUM CHLORIDE 0.9% IV 100 ML 999 ML (21:12)
[2025-02-20 22:28] VITALS: BP 139/94; PULSE 92; RESP 14; O2SAT 100
[2025-02-20] MEDS: DEXTROSE 5%/0.9% SOD CHL 1,000 ML 85 ML IV CONT (22:35)
--- NOTE | 2025-02-20 22:35 | PC.NURSE ---
per edp ok to give abx,no blood cultures needed.
--- NOTE | 2025-02-20 22:55 | PM.IMHP ---
H&P: HPI History of Present Illness Date/Time: 02/20/25 22:55 Chief Complaint: Abdominal pain, nausea, vomiting. Narrative: This is a pleasant 19-year-old female with history of appendicitis status post laparoscopic appendectomy in October 2022, bipolar disorder, and attention deficit hyperactivity disorder who presented to the emergency department via private vehicle with complaints of abdominal pain, nausea, and vomiting. She gives about a week history of daily nausea and vomiting which improves if she does not eat. Today she developed nonradiating, aching pain in the epigastric region with increasing nausea and multiple episodes of nonbloody and nonbilious emesis. She has not tried taking anything for her symptoms. Historically she has not had any problems like this. Last bowel movement was earlier today and was unremarkable. She denies fever, sweats, chest pain, shortness of breath, bloating, increased belching from baseline, heartburn, dysphagia, dysuria, diarrhea, melena, and hematochezia. No NSAID use; she only takes acetaminophen rarely when needed for pain. No significant caffeine or alcohol use. No history of GERD, peptic ulcers, gallbladder disease, or pancreatitis. In the ED: Blood pressure was 142/114 on arrival. The remainder of her vital signs being stable. Labs were significant for hemoglobin of 15.5, carbon dioxide 15, anion gap 21, BUN < 2, creatinine 0.53, glucose 127, AST 87, ALT 96, albumin 5.2. Urinalysis was positive for 3+ ketones, 2+ blood, 2+ leukocyte esterase, 3 to 5 RBC, 21 to 50 WBC. Urine drug screen was negative. CT of the abdomen and pelvis showed no acute intra-abdominal findings. She did not improve with supportive treatment is being admitted in this setting for monitoring and further evaluation. Review of Systems Review of Systems: 12 systems were reviewed and are negative except for as per HPI. [facility] Past Medical History Medical History (Updated 02/20/25 @ 23:49 by Saniya Wyatt PA-C) Anxiety Attention deficit hyperactivity disorder Bipolar disorder Fatty infiltration of liver noted on CT 02/20/2025 Surgical History Surgical History (Updated 02/20/25 @ 23:49 by Saniya Wyatt PA-C) History of strabismus surgery History of orthopedic surgery 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 Code status: Full code. Tobacco type: e-cigarettes/vaping Smokeless tobacco user: other Additional smoking assessment comments: vape Alcohol intake: current Alcohol use details: Social alcohol use in moderation. Substance use: current Substance use type: marijuana Lack of Transportation: No Lack of Food: Never True Current Housing: I Have Housing Concerned About Future Housing: No Difficulty Paying Gas/Electric Bills: No Difficulty Paying for Meds: No Currently Unemployed: No Education: High School Diploma/GED Difficulty w/ Childcare or Family Care: No Additional living arrangements comments: Lives with mother in [place]. 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 Spiritual care concerns: No Meds Home Medications and Allergies Home Medications ?Medication ?Instructions ?Recorded ?Confirmed ?Type escitalopram oxalate 20 mg tablet 20 mg PO DAILY 11/13/22 11/25/22 History medroxyprogesterone 150 mg/mL 150 mg IM [id number] 11/13/22 11/25/22 History intramuscular suspension methylphenidate HCl 18 mg 18 mg PO DAILY 11/13/22 11/25/22 History tablet,extended release 24 hr mirtazapine 7.5 mg tablet 15 mg PO DAILY 11/13/22 11/25/22 History cephalexin 500 mg capsule 500 mg PO Q12H 5 days #10 caps 02/20/25 Rx ondansetron 4 mg disintegrating 4 mg PO Q8H PRN nausea and 02/20/25 Rx tablet vomiting #10 tabs Allergies Allergy/AdvReac Type Severity Reaction Status Date / Time No Known Allergies Allergy Verified 02/20/25 18:12 Vital Signs Vital Signs - 24 hr 02/20/25 18:45 02/20/25 22:28 Temperature 98.3 F Pulse Rate 90 92 Respiratory Rate 15 14 Blood Pressure 142/114 H 139/94 H Pulse Oximetry 100 100 Oxygen Delivery Room Air Exam Narrative: General: Nontoxic-appearing female sitting up in bed no distress. Weight: 68.4 kg. BMI: 24.3. HEENT: PERRL, EOMI. Sclera anicteric. Tacky mucous membranes. Neck: Supple. Respiratory: Lungs are clear to auscultation bilaterally. Cardiovascular: Regular rate and rhythm with S1-S2. Gastrointestinal: Abdomen is soft and nondistended with positive bowel sounds. She is tender to palpation epigastric region. No guarding or rebound tenderness. Skin: Warm and dry. Extremities: No cyanosis, clubbing, or edema. Radial and pedal pulses intact. Neurological: Alert. Cranial nerves 2-12 are grossly intact. No gross focal deficits to casual conversation. Psychiatric: Pleasant and cooperative with normal mood and affect. Judgment and insight intact. H&P: Results Labs Labs: Short CBC 02/20/25 Range/Units 18:57 WBC 6.7 (4.5-10.0) K/mm3 Hgb 15.5 H (12.0-15.0) g/dL Hct 45.9 (37.0-47.0) % Plt Count 318 (150-375) k/mm3 BMP 02/20/25 18:57 Sodium 136 L Potassium 4.1 Chloride 100 Carbon Dioxide 15 L BUN < 2 L Creatinine 0.53 L Glucose 127 H Calcium 9.7 Liver Function 02/20/25 Range/Units 18:57 Total Bilirubin 0.6 (0.2-1.3) mg/dL AST 87 H (14-36) U/L ALT 96 H (6-35) U/L Alkaline Phosphatase 112 (38-126) U/L Albumin 5.2 H (3.5-5.1) g/dL Urine 02/20/25 Range/Units 19:04 Urine Color Yellow (Yellow) Urine Appearance Clear (Clear) Urine pH 6.5 (5.0-9.0) Ur Specific [place] 1.018 (1.001-1.035) Urine Protein Trace (Negative) mg/dL Urine Glucose (UA) Negative (Negative) mg/dL Imaging Abdomen/Pelvis CT 02/20/25 20:03 IMPRESSION: 1. No evidence of appendicitis, diverticulitis or intestinal obstruction. 2. Enhancing area in the uterus which may be fibroid. 3. Thickened wall of the urinary bladder. Evaluation for cystitis advised. 4. Fat infiltration. Assessment and Plan Assessment and plan (1) Abdominal pain: Code(s): R10.9 - Unspecified abdominal pain Status: Acute (2) Dehydration: Code(s): E86.0 - Dehydration Status: Acute (3) Ketoacidosis: Code(s): E87.29 - Other acidosis Status: Acute (4) Transaminitis: Code(s): R74.01 - Elevation of levels of liver transaminase levels Status: Acute (5) Fatty infiltration of liver: Code(s): K76.0 - Fatty (change of) liver, not elsewhere classified Status: Acute Plan The patient presented to the emergency department for evaluation of epigastric pain, nausea, and vomiting as detailed in HPI. Labs, imaging, EKG, and all reports were personally reviewed. She is quite dehydrated from poor oral intake and vomiting over the past week with evidence of ketoacidosis on labs and urinalysis. She received 2 L of crystalloids in the emergency department has been started on normal saline with dextrose. Antiemetics and analgesics are available as needed. Start pantoprazole for now. Consult Gastroenterology for possible upper endoscopy to rule out esophagitis, gastritis, ulcers, versus others. Her AST and ALT are elevated with normal total bilirubin and alkaline phosphatase. She does not seem to have any tenderness in the right upper quadrant on examination and there were no acute findings noted on CT scan although fatty infiltration of the liver was noted. Continue to monitor LFTs for now and check acetaminophen level. Urinalysis is positive for 2+ leukocyte esterase and 21 to 50 WBC's however no bacteria were seen on microscopy and she has no urinary symptoms thus no indication for antibiotics. Her home medications will be reviewed and resumed as appropriate. Findings and treatment plan were discussed with the patient and her mother at bedside. Questions were solicited and answered to satisfaction. The patient's medical management will be taken over by the hospitalist team in a.m. Quality VTE Prophylaxis VTE prophylaxis: mechanical ordered If No VTE Prophylaxis Answer both mechanical and pharmacologic: Reason no pharmacologic proph: low risk/not indicated The patient has been admitted under observation status. Hospitalist MIPS Advance Care Plan I have confirmed that the patient's Advanced Care Plan is present, code status is documented, or surrogate decision maker is listed in patient medical record.: Yes Medication Reconciliation I have utilized all available resources to obtain, update and review the patients current medications (includes all prescriptions, OTC, herbals, cannabis, and nutritional supplements).: Yes
[2025-02-21] VITALS (11 sets, daily range): BP systolic 110–148; BP diastolic 62–86; PULSE 65–89; RESP 14–20; TEMP 36.3–37.1; O2SAT 96–100; BMI 25.2
[2025-02-21 00:24] LABS: Acetaminophen < 10 ug/mL (10-30)
--- NOTE | 2025-02-21 00:37 | ADMGEN ---
This patient, Larissa Maurice, was admitted to [facility] Surg Room 328-01. Patient/family oriented to hospital policies and general routines including ID bracelet, bed and alarms, visiting hours, pain management, procedures, bathroom and other care routines, personal items, smoking policy, room service/diet, and visiting hours. Information on how to activate the Rapid Response Team has been discussed. Patient/Family are encouraged to report perceived risks to care and to ask questions if they do not understand what they are told or what they should do.
[2025-02-21 06:15] LABS: Hematocrit 38.8 % (37.0-47.0); Hemoglobin 13.3 g/dL (12.0-15.0); Mean Corpuscular HGB Conc 34.3 g/dl (32-36); Mean Corpuscular Volume 93.3 fl (80-100); Mean Platelet Volume 8.7 fl (7.4-10.4); Platelet Count Result 265 k/mm3 (150-375); Red Blood Count 4.16 M/mm3 (4.2-5.4); Red Cell Distribution Width 13.8 % (11.5-14.5); White Blood Count 6.3 K/mm3 (4.5-10.0)
[2025-02-21 06:29] LABS: Alanine Aminotransferase 74 U/L (6-35); Albumin Level 3.8 g/dL (3.5-5.1); Alkaline Phosphatase 69 U/L (38-126); Anion Gap 8 mmol/L (4-12); Aspartate Amino Transferase 64 U/L (14-36); Bilirubin,Total 0.5 mg/dL (0.2-1.3); Blood Urea Nitrogen < 2 mg/dL (7-17); Calcium 8.5 mg/dL (8.4-10.2); Carbon Dioxide 22 mmol/L (22-30); Chloride 104 mmol/L (98-107); Estimated CRCL calculation 132 ml/min; Estimated Glomerular Filt Rate > 60; Glucose 109 mg/dL (65-110); Potassium 3.5 mmol/L (3.4-5.0); Sodium 134 mmol/L (137-145)
[2025-02-21] MEDS: DEXTROSE 5%/0.9% SOD CHL 1,000 ML 85 ML IV CONT (07:14)
[2025-02-21] MEDS: PANTOPRAZOLE SODIUM IV 40 MG VIAL IV PUSH (08:33)
[2025-02-21] MEDS: KCL 40 MEQ/D5/0.9% SOD CHL 1,000 ML 100 ML IV CONT ×2 (08:45→20:28)
--- NOTE | 2025-02-21 10:28 | P.PNAN_ITS ---
Anes - Initial Pre Proc Eval Procedure: Operation Date: 02/21/25 15:00 Proposed Procedures p Esophagogastroduodenoscopy - Kai Huggins MD Date/Time: 02/21/25 10:28 Surgeon: Radha Weinberg APRN Pre Op Diagnosis: Intractable nausea vomiting, epigastric pain Patient Data Age: 19 Gender: F Height: 1.68 m Weight: 74.6 kg Last Vital Signs Temp 36.6 C 02/21/25 08:00 Pulse 75 02/21/25 08:00 Resp 16 02/21/25 08:00 BP 142/67 H 02/21/25 08:00 Pulse Ox 100 02/21/25 08:00 O2 Del Method Room Air 02/20/25 18:45 Allergies Allergy/AdvReac Type Severity Reaction Status Date / Time grass pollen Allergy Mild Itching Verified 02/21/25 00:35 weed pollen Allergy Mild Itching Verified 02/21/25 00:35 Home Medications ?Medication ?Instructions ?Recorded ?Confirmed ?Type escitalopram oxalate 20 mg tablet 20 mg PO DAILY 11/13/22 02/21/25 History medroxyprogesterone 150 mg/mL 150 mg IM [id number] 11/13/22 02/21/25 History intramuscular suspension cephalexin 500 mg capsule 500 mg PO Q12H 5 days #10 caps 02/20/25 Rx ondansetron 4 mg disintegrating 4 mg PO Q8H PRN nausea and 02/20/25 Rx tablet vomiting #10 tabs cariprazine 4.5 mg capsule 4.5 mg PO DAILY 02/21/25 02/21/25 History (Vraylar) lamotrigine 200 mg tablet,extended 200 mg PO DAILY 02/21/25 02/21/25 History release 24 hr methylphenidate HCl 100 mg 100 mg PO HS 02/21/25 02/21/25 History capsule,delayed release,ext release sprinkle (Jornay PM) ropinirole 1 mg tablet 1 mg PO DAILY 02/21/25 02/21/25 History Laboratory Tests 02/20/25 02/20/25 02/20/25 18:57 19:04 19:07 WBC 6.7 K/mm3 (4.5-10.0) RBC 4.97 M/mm3 (4.2-5.4) Hgb 15.5 H g/dL (12.0-15.0) Hct 45.9 % (37.0-47.0) MCV 92.4 fl (80-100) MCH 31.2 pg (26-34) MCHC 33.8 g/dl (32-36) RDW 13.7 % (11.5-14.5) Plt Count 318 k/mm3 (150-375) MPV 8.7 fl (7.4-10.4) Immature Gran % (Auto) 0.4 % (0-0.5) Neut % (Auto) 90.0 H % (45.5-73.1) Lymph % (Auto) 6.4 L % (18.3-44.2) [place] % (Auto) 2.8 % (2.6-8.5) Eos % (Auto) 0.0 % (0-4.4) Baso % (Auto) 0.4 % (0.2-1.2) Lymph # (Auto) 0.43 L K/mm3 (0.9-3.2) [place] # (Auto) 0.2 K/mm3 (0.1-0.6) Eos # (Auto) 0.0 K/mm3 (0-0.3) Baso # (Auto) 0.0 K/mm3 (0.0-0.1) Abs Immat Gran (auto) 0.03 K/mm3 (0.00-0.031) Absolute Neuts (auto) 6.0 K/mm3 (1.3-6.7) Absolute Nucleated RBC 0.000 K/mm3 (0.0-0.012) Nucleated RBC % 0.0 % (0.0-0.2) Sodium 136 L mmol/L (137-145) Potassium 4.1 mmol/L (3.4-5.0) Chloride 100 mmol/L (98-107) Carbon Dioxide 15 L mmol/L (22-30) Anion Gap 21 H mmol/L (4-12) BUN < 2 L mg/dL (7-17) Creatinine 0.53 L mg/dL (0.7-1.0) Estim Creat Clear Calc 132 ml/min Estimated GFR > 60 (59 - ) Glucose 127 H mg/dL (65-110) Calcium 9.7 mg/dL (8.4-10.2) Magnesium 2.0 mg/dL (1.6-2.3) Total Bilirubin 0.6 mg/dL (0.2-1.3) AST 87 H U/L (14-36) ALT 96 H U/L (6-35) Alkaline Phosphatase 112 U/L (38-126) Total Protein 8.0 g/dL (6.3-8.2) Albumin 5.2 H g/dL (3.5-5.1) Lipase 83 U/L (23-300) Urine Color Yellow (Yellow) Urine Appearance Clear (Clear) Urine pH 6.5 (5.0-9.0) Ur Specific [place] 1.018 (1.001-1.035) Urine Protein Trace mg/dL (Negative) Urine Glucose (UA) Negative mg/dL (Negative) Urine Ketones 3+ H mg/dL (Negative) Ur Blood (Man) 2+ H (Negative) Urine Nitrate Negative (Negative) Urine Bilirubin Negative (Negative) Urine Urobilinogen 0.2 mg/dL (<2.0) Add Ur Microanalysis Reviewed Leukocyte Esterase Rfl 2+ H ARTURO/UL (Negative) Urine RBC 3-5 H /hpf (0-2) Urine WBC 21-50 H /hpf (0-3) Ur Squamous Epith Cells Occasional /hpf (Few) Urine Bacteria None seen /hpf Urine Casts 0-2 Urine Mucus Present /lpf POC Urine HCG, Qual Negative (Negative) Urine Opiates Screen Negative (Negative) Urine Methadone Screen Negative (Negative) Acetaminophen Ur Barbiturates Screen Negative (Negative) Ur Phencyclidine Scrn Negative (Negative) Ur Amphetamine Screen Negative (Negative) U Benzodiazepines Scrn Negative (Negative) Urine Cocaine Screen Negative (Negative) U Cannabinoids Screen Negative (Negative) 02/21/25 02/21/25 00:10 05:56 WBC 6.3 K/mm3 (4.5-10.0) RBC 4.16 L M/mm3 (4.2-5.4) Hgb 13.3 g/dL (12.0-15.0) Hct 38.8 % (37.0-47.0) MCV 93.3 fl (80-100) MCH 32.0 pg (26-34) MCHC 34.3 g/dl (32-36) RDW 13.8 % (11.5-14.5) Plt Count 265 k/mm3 (150-375) MPV 8.7 fl (7.4-10.4) Immature Gran % (Auto) Neut % (Auto) Lymph % (Auto) [place] % (Auto) Eos % (Auto) Baso % (Auto) Lymph # (Auto) [place] # (Auto) Eos # (Auto) Baso # (Auto) Abs Immat Gran (auto) Absolute Neuts (auto) Absolute Nucleated RBC Nucleated RBC % Sodium 134 L mmol/L (137-145) Potassium 3.5 mmol/L (3.4-5.0) Chloride 104 mmol/L (98-107) Carbon Dioxide 22 mmol/L (22-30) Anion Gap 8 mmol/L (4-12) BUN < 2 L mg/dL (7-17) Creatinine 0.53 L mg/dL (0.7-1.0) Estim Creat Clear Calc 132 ml/min Estimated GFR > 60 (59 - ) Glucose 109 mg/dL (65-110) Calcium 8.5 mg/dL (8.4-10.2) Magnesium 2.0 mg/dL (1.6-2.3) Total Bilirubin 0.5 mg/dL (0.2-1.3) AST 64 H U/L (14-36) ALT 74 H U/L (6-35) Alkaline Phosphatase 69 U/L (38-126) Total Protein 6.0 L g/dL (6.3-8.2) Albumin 3.8 g/dL (3.5-5.1) Lipase Urine Color Urine Appearance Urine pH Ur Specific [place] Urine Protein Urine Glucose (UA) Urine Ketones Ur Blood (Man) Urine Nitrate Urine Bilirubin Urine Urobilinogen Add Ur Microanalysis Leukocyte Esterase Rfl Urine RBC Urine WBC Ur Squamous Epith Cells Urine Bacteria Urine Casts Urine Mucus POC Urine HCG, Qual Urine Opiates Screen Urine Methadone Screen Acetaminophen < 10 L ug/mL (10-30) Ur Barbiturates Screen Ur Phencyclidine Scrn Ur Amphetamine Screen U Benzodiazepines Scrn Urine Cocaine Screen U Cannabinoids Screen Patient hx anesthesia problems: none Family hx anesthesia problems: none Results Review: All pre-operative results and documents have been reviewed as part of the pre-operative evaluation. [facility], [facility] Past Medical History Medical History (Updated 02/20/25 @ 23:49 by Saniya G Gerling, PA-C) Anxiety Attention deficit hyperactivity disorder Bipolar disorder Fatty infiltration of liver noted on CT 02/20/2025 Surgical History Surgical History (Updated 02/20/25 @ 23:49 by Saniya Wyatt PA-C) History of strabismus surgery History of orthopedic surgery 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 Code status: Full code. Smoking status: Current every day smoker Tobacco type: e-cigarettes/vaping Smokeless tobacco user: dissolvable tobacco Second hand tobacco smoke exposure: No Additional smoking assessment comments: vape Alcohol intake: current Drinks per week: 4 Alcohol use details: Social alcohol use in moderation. Substance use: never Substance use type: marijuana Do You Feel Safe in your Home?: Yes Lack of Transportation: No Lack of Food: Never True Current Housing: I Have Housing Concerned About Future Housing: No Difficulty Paying Gas/Electric Bills: No Difficulty Paying for Meds: No Currently Unemployed: No Education: Bachelor's Degree Difficulty w/ Childcare or Family Care: No Additional living arrangements comments: Lives with mother in [place]. 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 Spiritual care concerns: No Anes - Eval Final PreProcedure Day of Procedure 02/21/25 10:28 Patient weight: overweight Heart: regular rate and rhythm Lungs: clear to auscultation Airway: Mallampati scale class II Neurological: alert and oriented Last oral intake: >/= 8 hours ASA classification: II Emergent: no Anesthetic plan: proceed Anesthesia type and monitoring: general GIVS and standard monitoring Results Review: All pre-operative results and documents have been reviewed as part of the pre- operative evaluation. Informed Consent: The patient's anesthetic plan and its attendant risks and benefits were discussed with the patient/family/POA. Questions were solicited and answers provided to the satisfaction of the patient/family/POA.
[2025-02-21] MEDS: LACTATED RINGERS 1,000 ML 150 ML IV CONT (10:40)
--- NOTE | 2025-02-21 10:47 | PC.NURSE ---
Patient transferred to GI lab
--- NOTE | 2025-02-21 10:57 | WPDGICN ---
Assessment and Plan Assessment and plan (1) Nausea and vomiting in adult: Code(s): R11.2 - Nausea with vomiting, unspecified Status: Acute Assessment and Plan: this is improved after medical treatment here with dehydration egd to check if esophagitis, ulcer, or any other cause to explain symptom ct scan no major findings more recommendations after egd (2) Dehydration: Code(s): E86.0 - Dehydration Status: Acute Assessment and Plan: treated (3) High anion gap metabolic acidosis: Code(s): E87.29 - Other acidosis Status: Acute Assessment and Plan: from acute presentation (4) Abdominal pain: Code(s): R10.9 - Unspecified abdominal pain Status: Acute (5) Transaminitis: Code(s): R74.01 - Elevation of levels of liver transaminase levels Status: Acute Assessment and Plan: probably from dehydration, acute illness expect that will go back down to normal, if persistent elevated as outpatient then we can see in office GI Consult Note Consult date/time: 02/21/25 10:57 Reason for consult: n/v, epigastric pain HPI: Larissa Maurice is a 19 year old female with history of appendicitis status post laparoscopic appendectomy in October 2022, bipolar disorder, and attention deficit hyperactivity disorder on meds here with 1 week of nausea but day prior admission with intractable emesis about 10 times, also had epigastric pain. Nausea is improved and doing better, never had EGD. ED labs were significant for hemoglobin of 15.5, carbon dioxide 15, anion gap 21, BUN < 2, creatinine 0.53, glucose 127, AST 87, ALT 96 (previous liver enzymes normal), albumin 5.2. Urinalysis was positive for 3+ ketones, 2+ blood, 2+ leukocyte esterase, 3 to 5 RBC, 21 to 50 WBC. Urine drug screen was negative. CT of the abdomen and pelvis showed no acute intra-abdominal findings Review of Systems Constitutional: Constitutional: Denies chills Eyes: Eyes: Denies blurry vision ENT: Reports Normal hearing present Cardiovascular: Cardiovascular: Denies chest pain Respiratory: Respiratory: Denies cough Gastrointestinal: Gastrointestinal: Reports abdominal pain, Reports nausea and Reports vomiting Genitourinary: Genitourinary: Denies dysuria Musculoskeletal: Musculoskeletal: Denies back pain Integumentary/Breasts: Skin/Breast: Denies rash Neurologic: Denies confusion Psychiatric: Psychiatric: Denies behavioral changes [facility] Past Medical History Medical History (Updated 02/21/25 @ 14:37 by Kai Huggins MD) Nausea and vomiting in adult Anxiety Attention deficit hyperactivity disorder Bipolar disorder Fatty infiltration of liver noted on CT 02/20/2025 Surgical History Surgical History (Updated 02/20/25 @ 23:49 by Saniya Wyatt PA-C) History of strabismus surgery History of orthopedic surgery 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 Code status: Full code. Smoking status: Current every day smoker Tobacco type: e-cigarettes/vaping Smokeless tobacco user: dissolvable tobacco Second hand tobacco smoke exposure: No Additional smoking assessment comments: vape Alcohol intake: current Drinks per week: 4 Alcohol use details: Social alcohol use in moderation. Substance use: never Substance use type: marijuana Do You Feel Safe in your Home?: Yes Lack of Transportation: No Lack of Food: Never True Current Housing: I Have Housing Concerned About Future Housing: No Difficulty Paying Gas/Electric Bills: No Difficulty Paying for Meds: No Currently Unemployed: No Education: Bachelor's Degree Difficulty w/ Childcare or Family Care: No Additional living arrangements comments: Lives with mother in [place]. 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 Spiritual care concerns: No Meds Home Medications and Allergies Home Medications ?Medication ?Instructions ?Recorded ?Confirmed ?Type escitalopram oxalate 20 mg tablet 20 mg PO DAILY 11/13/22 02/21/25 History medroxyprogesterone 150 mg/mL 150 mg IM [id number] 11/13/22 02/21/25 History intramuscular suspension cephalexin 500 mg capsule 500 mg PO Q12H 5 days #10 caps 02/20/25 Rx ondansetron 4 mg disintegrating 4 mg PO Q8H PRN nausea and 02/20/25 Rx tablet vomiting #10 tabs cariprazine 4.5 mg capsule 4.5 mg PO DAILY 02/21/25 02/21/25 History (Vraylar) lamotrigine 200 mg tablet,extended 200 mg PO DAILY 02/21/25 02/21/25 History release 24 hr methylphenidate HCl 100 mg 100 mg PO HS 02/21/25 02/21/25 History capsule,delayed release,ext release sprinkle (Jornay PM) ropinirole 1 mg tablet 1 mg PO DAILY 02/21/25 02/21/25 History Allergies Allergy/AdvReac Type Severity Reaction Status Date / Time grass pollen Allergy Mild Itching Verified 02/21/25 00:35 weed pollen Allergy Mild Itching Verified 02/21/25 00:35 Vital Signs Vital Signs - 24 hr 02/20/25 18:45 02/20/25 22:28 02/21/25 00:00 Temperature 98.3 F 98.3 F Pulse Rate 90 92 75 Respiratory Rate 15 14 16 Blood Pressure 142/114 H 139/94 H 136/74 Pulse Oximetry 100 100 99 Oxygen Delivery Room Air 02/21/25 04:00 02/21/25 08:00 02/21/25 10:40 Temperature 98.7 F 97.8 F 97.8 F Pulse Rate 70 75 75 Respiratory Rate 16 16 16 Blood Pressure 122/73 142/67 H 124/78 Pulse Oximetry 100 100 100 Oxygen Delivery Room Air Exam Const: General: comfortable and no acute distress HENMT: Face/Nose/Sinus: Normal nares present Eyes: General: appearance normal, both eyes and all related structures Neck: Neck: supple Resp: Auscultation: clear to auscultation bilaterally Cardio: Rate: regular rate Rhythm: regular rhythm GI: Inspection: non-distended GI Palp: Yes Soft to palpation and No Tenderness to palpation present (GI) Auscultation: normal bowel sounds Skin: General skin exam: normal color Neuro: Speech: normal speech Extrem: General: normal to inspection Psych: Mental Status: mental status grossly normal Results Labs 02/21/25 05:56 02/21/25 05:56 Labs: Short CBC 02/20/25 02/21/25 Range/Units 18:57 05:56 WBC 6.7 6.3 (4.5-10.0) K/mm3 Hgb 15.5 H 13.3 (12.0-15.0) g/dL Hct 45.9 38.8 (37.0-47.0) % Plt Count 318 265 (150-375) k/mm3 BMP 02/20/25 02/21/25 18:57 05:56 Sodium 136 L 134 L Potassium 4.1 3.5 Chloride 100 104 Carbon Dioxide 15 L 22 BUN < 2 L < 2 L Creatinine 0.53 L 0.53 L Glucose 127 H 109 Calcium 9.7 8.5 Liver Function 02/20/25 02/21/25 Range/Units 18:57 05:56 Total Bilirubin 0.6 0.5 (0.2-1.3) mg/dL AST 87 H 64 H (14-36) U/L ALT 96 H 74 H (6-35) U/L Alkaline Phosphatase 112 69 (38-126) U/L Albumin 5.2 H 3.8 (3.5-5.1) g/dL Urine 02/20/25 Range/Units 19:04 Urine Color Yellow (Yellow) Urine Appearance Clear (Clear) Urine pH 6.5 (5.0-9.0) Ur Specific [place] 1.018 (1.001-1.035) Urine Protein Trace (Negative) mg/dL Urine Glucose (UA) Negative (Negative) mg/dL
[2025-02-21] MEDS: ONDANSETRON INJ 4 MG/2 ML VIAL IV PUSH (13:22)
--- NOTE | 2025-02-21 14:56 | P.PNIM_ITS ---
Progress Note: A&P Assessment and Plan (1) Abdominal pain: Code(s): R10.9 - Unspecified abdominal pain Status: Acute Assessment and Plan: Upper abdominal pain improved today 02/20/25 CT abd/pelvis 1. No evidence of appendicitis, diverticulitis or intestinal obstruction. 2. Enhancing area in the uterus which may be fibroid. 3. Thickened wall of the urinary bladder. Evaluation for cystitis advised. 4. Fat infiltration. UA 2+ LE, WBC's 21-50, culture pending HCG negative PLAN GI consulted RUQ US Transvaginal US to evaluate possible fibroid (2) Nausea and vomiting: Code(s): R11.2 - Nausea with vomiting, unspecified Status: Acute Assessment and Plan: Nausea/vomiting about 3 weeks ago, resolved. Then poor appetite for about a week. Sudden onset of acute nausea/vomiting yesterday 2 L fluids in the ED, started NS & dextrose Evidence of ketoacidosis on labs and urinalysis AST and ALT are elevated with normal total bilirubin and alkaline phosphatase EGD mild gastritis, no ulcers, no hernia. Multiple biopsies taken to rule out celiac sprue PLAN Follow gastric biopsies Zofran/compazine prn continue PPI, daily x4 weeks per GI recs for gastritis (3) Dehydration: Code(s): E86.0 - Dehydration Status: Acute Assessment and Plan: Fluids, treatment of N/V as noted (4) Ketoacidosis: Code(s): E87.29 - Other acidosis Status: Acute Assessment and Plan: UA 3+ ketones Potassium 3.5 today --Change fluids to D5NS with 40Kcl (5) Transaminitis: Code(s): R74.01 - Elevation of levels of liver transaminase levels Status: Acute Assessment and Plan: LFT's mildly elevated, likely 2/2 dehydration. Trending down Follow up LFT's (6) Fatty infiltration of liver: Code(s): K76.0 - Fatty (change of) liver, not elsewhere classified Status: Acute Assessment and Plan: Follow up outpatient (7) Nausea and vomiting in adult: Code(s): R11.2 - Nausea with vomiting, unspecified Status: Acute Assessment and Plan: Zofran, compazine prn Plan The patient presented to the emergency department for evaluation of epigastric pain, nausea, and vomiting Time Spent With Patient Time: 57 minutes Subjective Date/time seen: 02/21/25 14:56 Interval history: GI consulted and patient had an EGD today, showed mild gastritis and biopsies sent Tried to eat a small amount today but had emesis this afternoon LFT's improving Review of Systems Review of Systems: 12 systems were reviewed and are negativ e except for as per HPI. Exam Narrative: General: Nontoxic-appearing female sitting up in bed no distress. Weight: 68.4 kg. BMI: 24.3. HEENT: PERRL, EOMI. Sclera anicteric. Tacky mucous membranes. Neck: Supple. Respiratory: Lungs are clear to auscultation bilaterally. Cardiovascular: Regular rate and rhythm with S1-S2. Gastrointestinal: Abdomen is soft and nondistended with positive bowel sounds. She is minimally tender to palpation epigastric region. No guarding or rebound tenderness. Skin: Warm and dry. Extremities: No cyanosis, clubbing, or edema. Radial and pedal pulses intact. Neurological: Alert. Cranial nerves 2-12 are grossly intact. No gross focal deficits to casual conversation. Psychiatric: Pleasant and cooperative with normal mood and affect. Judgment and insight intact. Objective Data Vital Signs Vital Signs: Vital Signs - 24 hr 02/20/25 18:45 02/20/25 22:28 02/21/25 00:00 Temperature 98.3 F 98.3 F Pulse Rate 90 92 75 Respiratory Rate 15 14 16 Blood Pressure 142/114 H 139/94 H 136/74 Pulse Oximetry 100 100 99 Oxygen Delivery Room Air 02/21/25 04:00 02/21/25 08:00 02/21/25 10:40 Temperature 98.7 F 97.8 F 97.8 F Pulse Rate 70 75 75 Respiratory Rate 16 16 16 Blood Pressure 122/73 142/67 H 124/78 Pulse Oximetry 100 100 100 Oxygen Delivery Room Air 02/21/25 11:07 02/21/25 11:17 02/21/25 11:27 Temperature Pulse Rate 86 67 65 Respiratory Rate 20 14 19 Blood Pressure 110/68 114/77 117/75 Pulse Oximetry 96 100 100 Oxygen Delivery Room Air Room Air Room Air 02/21/25 11:53 Temperature 98.7 F Pulse Rate 76 Respiratory Rate 16 Blood Pressure 123/62 Pulse Oximetry 100 Oxygen Delivery Intake/Output Intake/Output: Intake & Output 04/29/02/19/25 02/20/25 02/21/25 23:59 23:59 23:59 23:59 Intake Total 0 1187.1 Balance 2150 1187.1 Meds/Results Medications: Active Medications Generic Name Dose Route Start Last Admin Trade Name Freq PRN Reason Stop Dose Admin Acetaminophen 650 mg 02/20/25 23:56 Acetaminophen 325 Mg Tablet PO Q6H PRN Mild Pain (1-3) or Fever Potassium Chloride/Dextrose/Sod Cl 1,000 mls @ 100 mls/hr 02/21/25 08:15 02/21/25 08:45 Kcl 40 Meq/D5ns IV CONT 02/22/25 08:14 100 mls/hr .Q10H SHIRLEY Administration Ondansetron HCl 4 mg 02/20/25 23:56 02/21/25 13:22 Ondansetron Inj 4 Mg/2 Ml Vial IV PUSH 4 mg Q6H PRN Administration Nausea And Vomiting Pantoprazole Sodium 40 mg 02/22/25 09:00 [facility]oprazole 40 [facility] Results: ITS Impressions Abdomen/Pelvis CT 02/20/25 20:03 IMPRESSION: 1. No evidence of appendicitis, diverticulitis or intestinal obstruction. 2. Enhancing area in the uterus which may be fibroid. 3. Thickened wall of the urinary bladder. Evaluation for cystitis advised. 4. Fat infiltration. Labs Labs: Laboratory Results - last 24 hr 02/20/25 02/20/25 02/20/25 18:57 19:04 19:07 WBC 6.7 RBC 4.97 Hgb 15.5 H Hct 45.9 MCV 92.4 MCH 31.2 MCHC 33.8 RDW 13.7 Plt Count 318 MPV 8.7 Immature Gran % (Auto) 0.4 Neut % (Auto) 90.0 H Lymph % (Auto) 6.4 L [place] % (Auto) 2.8 Eos % (Auto) 0.0 Baso % (Auto) 0.4 Lymph # (Auto) 0.43 L [place] # (Auto) 0.2 Eos # (Auto) 0.0 Baso # (Auto) 0.0 Abs Immat Gran (auto) 0.03 Absolute Neuts (auto) 6.0 Absolute Nucleated RBC 0.000 Nucleated RBC % 0.0 Sodium 136 L Potassium 4.1 Chloride 100 Carbon Dioxide 15 L Anion Gap 21 H BUN < 2 L Creatinine 0.53 L Estim Creat Clear Calc 132 Estimated GFR > 60 Glucose 127 H Calcium 9.7 Magnesium 2.0 Total Bilirubin 0.6 AST 87 H ALT 96 H Alkaline Phosphatase 112 Total Protein 8.0 Albumin 5.2 H Lipase 83 Urine Color Yellow Urine Appearance Clear Urine pH 6.5 Ur Specific [place] 1.018 Urine Protein Trace Urine Glucose (UA) Negative Urine Ketones 3+ H Ur Blood (Man) 2+ H Urine Nitrate Negative Urine Bilirubin Negative Urine Urobilinogen 0.2 Add Ur Microanalysis Reviewed Leukocyte Esterase Rfl 2+ H Urine RBC 3-5 H Urine WBC 21-50 H Ur Squamous Epith Cells Occasional Urine Bacteria None seen Urine Casts 0-2 Urine Mucus Present POC Urine HCG, Qual Negative Urine Opiates Screen Negative Urine Methadone Screen Negative Acetaminophen Ur Barbiturates Screen Negative Ur Phencyclidine Scrn Negative Ur Amphetamine Screen Negative U Benzodiazepines Scrn Negative Urine Cocaine Screen Negative U Cannabinoids Screen Negative 02/21/25 02/21/25 00:10 05:56 WBC 6.3 RBC 4.16 L Hgb 13.3 Hct 38.8 MCV 93.3 MCH 32.0 MCHC 34.3 RDW 13.8 Plt Count 265 MPV 8.7 Immature Gran % (Auto) Neut % (Auto) Lymph % (Auto) [place] % (Auto) Eos % (Auto) Baso % (Auto) Lymph # (Auto) [place] # (Auto) Eos # (Auto) Baso # (Auto) Abs Immat Gran (auto) Absolute Neuts (auto) Absolute Nucleated RBC Nucleated RBC % Sodium 134 L Potassium 3.5 Chloride 104 Carbon Dioxide 22 Anion Gap 8 BUN < 2 L Creatinine 0.53 L Estim Creat Clear Calc 132 Estimated GFR > 60 Glucose 109 Calcium 8.5 Magnesium 2.0 Total Bilirubin 0.5 AST 64 H ALT 74 H Alkaline Phosphatase 69 Total Protein 6.0 L Albumin 3.8 Lipase Urine Color Urine Appearance Urine pH Ur Specific [place] Urine Protein Urine Glucose (UA) Urine Ketones Ur Blood (Man) Urine Nitrate Urine Bilirubin Urine Urobilinogen Add Ur Microanalysis Leukocyte Esterase Rfl Urine RBC Urine WBC Ur Squamous Epith Cells Urine Bacteria Urine Casts Urine Mucus POC Urine HCG, Qual Urine Opiates Screen Urine Methadone Screen Acetaminophen < 10 L Ur Barbiturates Screen Ur Phencyclidine Scrn Ur Amphetamine Screen U Benzodiazepines Scrn Urine Cocaine Screen U Cannabinoids Screen Quality VTE Prophylaxis VTE prophylaxis: mechanical ordered Hospitalist MIPS Advance Care Plan I have confirmed that the patient's Advanced Care Plan is present, code status is documented, or surrogate decision maker is listed in patient medical record.: Yes Medication Reconciliation I have utilized all available resources to obtain, update and review the patients current medications (includes all prescriptions, OTC, herbals, cannabis, and nutritional supplements).: Yes
[2025-02-21] MEDS: ACETAMINOPHEN 325 MG TABLET 650 MG PO (17:06)
[2025-02-22 00:31] VITALS: BP 111/95; PULSE 72; RESP 16; TEMP 36.4; O2SAT 100
[2025-02-22 05:13] VITALS: BP 151/40; PULSE 64; RESP 18; TEMP 37; O2SAT 98
[2025-02-22 06:21] LABS: Hemoglobin 13.1 g/dL (12.0-15.0); Lymphocytes Percent Auto 41.7 % (18.3-44.2); Mean Corpuscular HGB Conc 32.8 g/dl (32-36); Mean Corpuscular Hemoglobin 31.5 pg (26-34); Mean Corpuscular Volume 96.2 fl (80-100); Mean Platelet Volume 8.9 fl (7.4-10.4); Monocytes Absolute Auto 0.5 K/mm3 (0.1-0.6); Monocytes Percent Auto 11.3 % (2.6-8.5); Neutrophils Absolute Auto 1.8 K/mm3 (1.3-6.7); Platelet Count Result 232 k/mm3 (150-375); Red Blood Count 4.16 M/mm3 (4.2-5.4); Red Cell Distribution Width 13.8 % (11.5-14.5); White Blood Count 4.1 K/mm3 (4.5-10.0)
[2025-02-22 06:29] LABS: Alanine Aminotransferase 66 U/L (6-35); Albumin Level 3.8 g/dL (3.5-5.1); Alkaline Phosphatase 67 U/L (38-126); Anion Gap 7 mmol/L (4-12); Aspartate Amino Transferase 59 U/L (14-36); Bilirubin,Total 0.6 mg/dL (0.2-1.3); Calcium 8.8 mg/dL (8.4-10.2); Carbon Dioxide 22 mmol/L (22-30); Chloride 109 mmol/L (98-107); Estimated CRCL calculation 115 ml/min; Estimated Glomerular Filt Rate > 60; Glucose 105 mg/dL (65-110); Potassium 4.4 mmol/L (3.4-5.0); Sodium 138 mmol/L (137-145)
[2025-02-22 06:31] LABS: Blood Urea Nitrogen < 2 mg/dL (7-17)
[2025-02-22] MEDS: KCL 40 MEQ/D5/0.9% SOD CHL 1,000 ML 100 ML IV CONT (06:54)
[2025-02-22 08:00] VITALS: BP 120/64; PULSE 80; RESP 20; TEMP 36.4; O2SAT 99
[2025-02-22] MEDS: PANTOPRAZOLE 40 MG TABLET PO (09:40)
--- NOTE | 2025-02-22 11:23 | WPDGIPROGNO ---
Progress Note: A&P Assessment and Plan (1) Nausea and vomiting: Code(s): R11.2 - Nausea with vomiting, unspecified Status: Acute Assessment and Plan: antiemetics prn egd mild gastritis, pending biopsies abdominal us fatty liver pelvis us normal she probably is going home today and can follow-up office in few weeks (2) Transaminitis: Code(s): R74.01 - Elevation of levels of liver transaminase levels Status: Acute Assessment and Plan: probably from acute presentation with dehydration, n/v normal previously repeat as outpatient (3) Fatty infiltration of liver: Code(s): K76.0 - Fatty (change of) liver, not elsewhere classified Status: Acute (4) Abdominal pain: Code(s): R10.9 - Unspecified abdominal pain Status: Acute Assessment and Plan: resolved (5) Gastritis: Code(s): K29.70 - Gastritis, unspecified, without bleeding Status: Acute (6) Acute dehydration: Code(s): E86.0 - Dehydration Status: Acute Assessment and Plan: resolved (7) High anion gap metabolic acidosis: Code(s): E87.29 - Other acidosis Status: Acute Assessment and Plan: resolved Subjective Date/time seen: 02/22/25 11:23 Interval history: egd only mild gastritis had emesis yesterday, today feeling better and probably go home later today Review of Systems Review of Systems: All systems reviewed & are unremarkable except as noted in HPI and below Exam Const: General: comfortable and no acute distress HENMT: Face/Nose/Sinus: Normal nares present Eyes: General: appearance normal, both eyes and all related structures Neck: Neck: no JVD Resp: Auscultation: clear to auscultation bilaterally Cardio: Rate: regular rate Rhythm: regular rhythm GI: Inspection: non-distended GI Palp: Yes Soft to palpation Skin: General skin exam: normal color Neuro: General: gait normal Speech: normal speech Extrem: General: normal to inspection Psych: Mental Status: mental status grossly normal Objective Data Vital Signs Vital Signs: Vital Signs - 24 hr 02/21/25 11:27 02/21/25 11:53 02/21/25 16:00 Temperature 98.7 F 97.3 F L Pulse Rate 65 76 89 Respiratory Rate 19 16 14 Blood Pressure 117/75 123/62 148/74 H Pulse Oximetry 100 100 99 Oxygen Delivery Room Air 02/21/25 20:26 02/21/25 20:30 02/22/25 00:31 Temperature 97.5 F L 97.6 F Pulse Rate 73 73 72 Respiratory Rate 18 18 16 Blood Pressure 128/86 111/95 H Pulse Oximetry 100 100 100 Oxygen Delivery Room Air 02/22/25 05:13 Temperature 98.6 F Pulse Rate 64 Respiratory Rate 18 Blood Pressure 151/40 H Pulse Oximetry 98 Oxygen Delivery Intake/Output Intake/Output: Intake & Output 02/19/25 02/20/25 02/21/25 02/22/25 23:59 23:59 23:59 23:59 Intake Total 2150 2727.1 1550 Balance 2150 2727.1 1550 Meds/Results Medications: Active Medications Generic Name Dose Route Start Last Admin Trade Name Freq PRN Reason Stop Dose Admin Acetaminophen 650 mg 02/20/25 23:56 02/21/25 17:06 Acetaminophen 325 Mg Tablet PO 650 mg Q6H PRN Administration Mild Pain (1-3) or Fever Ceftriaxone Sodium 1 gm in 50 mls @ 100 mls/hr 02/21/25 22:00 02/21/25 22:40 Rocephin 1 Gm/Ns 50 Ml IVPB 02/22/25 22:29 100 mls/hr Q24H SHIRLEY Administration Ondansetron HCl 4 mg 02/20/25 23:56 02/21/25 13:22 Ondansetron Inj 4 Mg/2 Ml Vial IV PUSH 4 mg Q6H PRN Administration Nausea And Vomiting Pantoprazole Sodium 40 mg 02/22/25 09:00 02/22/25 09:40 Pantoprazole 40 Mg Tablet PO 40 mg QAM SHIRLEY Administration Prochlorperazine Edisylate 10 mg 02/21/25 15:43 Prochlorperazine Edisylate 10 Mg/2 Ml Vial IV PUSH Q6H PRN Nausea And Vomiting Radiology Results: ITS Impressions Abdomen/Pelvis CT 02/20/25 20:03 IMPRESSION: 1. No evidence of appendicitis, diverticulitis or intestinal obstruction. 2. Enhancing area in the uterus which may be fibroid. 3. Thickened wall of the urinary bladder. Evaluation for cystitis advised. 4. Fat infiltration. Abdomen Ultrasound 02/22/25 09:58 IMPRESSION: 1. Diffuse hepatic steatosis. Otherwise normal abdominal ultrasound with no cholelithiasis. Transvaginal US 02/22/25 10:40 IMPRESSION: 1. Unremarkable pelvic ultrasound. Labs Labs: Laboratory Results - last 24 hr 02/22/25 06:08 WBC 4.1 L RBC 4.16 L Hgb 13.1 Hct 40.0 MCV 96.2 MCH 31.5 MCHC 32.8 RDW 13.8 Plt Count 232 MPV 8.9 Immature Gran % (Auto) 0.0 Neut % (Auto) 45.0 L Lymph % (Auto) 41.7 [place] % (Auto) 11.3 H Eos % (Auto) 1.0 Baso % (Auto) 1.0 Lymph # (Auto) 1.70 [place] # (Auto) 0.5 Eos # (Auto) 0.0 Baso # (Auto) 0.0 Abs Immat Gran (auto) 0.00 Absolute Neuts (auto) 1.8 Absolute Nucleated RBC 0.000 Nucleated RBC % 0.0 Sodium 138 Potassium 4.4 Chloride 109 H Carbon Dioxide 22 Anion Gap 7 BUN < 2 L Creatinine 0.62 L Estim Creat Clear Calc 115 Estimated GFR > 60 Glucose 105 Calcium 8.8 Total Bilirubin 0.6 AST 59 H ALT 66 H Alkaline Phosphatase 67 Total Protein 6.0 L Albumin 3.8
--- NOTE | 2025-02-22 13:06 | P.DS_ITS ---
DS: Admitting Diagnosis Discharge Date 02/22/2025 Admitting Diagnosis nausea and vomiting DS: Discharge Diagnosis Discharge Diagnosis (1) Abdominal pain: Code(s): R10.9 - Unspecified abdominal pain Status: Acute Assessment and Plan: 02/20/25 CT abd/pelvis 1. No evidence of appendicitis, diverticulitis or intestinal obstruction. 2. Enhancing area in the uterus which may be fibroid. 3. Thickened wall of the urinary bladder. Evaluation for cystitis advised. 4. Fat infiltration. UA 2+ LE, WBC's 21-50, culture negative HCG negative GI consulted RUQ US unremarkable Transvaginal US unremarkable (2) Nausea and vomiting: Code(s): R11.2 - Nausea with vomiting, unspecified Status: Acute Assessment and Plan: Nausea/vomiting about 3 weeks ago, resolved. Then poor appetite for about a week. Sudden onset of acute nausea/vomiting prior to admission 2 L fluids in the ED, started NS & dextrose Evidence of ketoacidosis on labs and urinalysis AST and ALT were elevated with normal total bilirubin and alkaline phosphatase EGD mild gastritis, no ulcers, no hernia. Multiple biopsies taken to rule out celiac sprue continue PPI, daily x4 weeks per GI recs for gastritis (3) Dehydration: Code(s): E86.0 - Dehydration Status: Acute Assessment and Plan: Resolved (4) Ketoacidosis: Code(s): E87.29 - Other acidosis Status: Acute Assessment and Plan: UA 3+ ketones Due to poor oral intake (5) Transaminitis: Code(s): R74.01 - Elevation of levels of liver transaminase levels Status: Acute Assessment and Plan: LFT's mildly elevated, likely 2/2 dehydration. Trending down Follow up LFT's (6) Fatty infiltration of liver: Code(s): K76.0 - Fatty (change of) liver, not elsewhere classified Status: Acute Assessment and Plan: Follow up outpatient DS: Summary Hospital Course Hospital Course: Admitted following 3 weeks of epigastric pain nausea and vomiting. Did Advil Aleve all caffeine. Denied cannabis use. Was somewhat dehydrated with mildly elevated LFT 3 mild ketosis presumably related to starvation. No history of eating disorder although she does have a history of bipolar disorder. States she was taking her medication. Was admitted for IV fluids and symptomatic treatment with anti emetics. 02/20/25 CT abd/pelvis 1. No evidence of appendicitis, diverticulitis or intestinal obstruction. 2. Enhancing area in the uterus which may be fibroid. 3. Thickened wall of the urinary bladder. Evaluation for cystitis advised. 4. Fat infiltration. UA 2+ LE, WBC's 21-50, culture negative HCG negative GI consulted RUQ US unremarkable Transvaginal US unremarkable EGD with gastritis, bx's pending. On the evening prior to discharge and the of discharge she tolerated clear liquids including Jell-O. She was discharged on a bland diet as an outpatient with primary care and GI. Time Spent with Patient Time attestation: Total time spent providing and/or coordinating discharge services: Exam Const: Other: HEENT: EOMI, PERRL, sclerae nonicteric, pharyngeal mucosa pink and intact NECK: No JVD, adenopathy, or thyromegaly CHEST: Clear to auscultation. Normal effort. HEART: NL S1/S2, regular, no murmur ABDOMEN: BS+, soft, nontender, no mass, no bruits EXTREMITIES: No cyanosis, edema, or clubbing NEUROLOGIC: CN intact and symmetric to inspection. MUSCULOSKELETAL: Tone and strength symmetric. PSYCH: Alert. Oriented to person, place, and time. DS: Data Data Completed and Pending Pending studies at discharge: Pending at discharge 02/21/25 11:03 Surgical [PTH] Routine Labs on day of discharge: Labs from last 24 hours 02/22/25 06:08 WBC 4.1 L RBC 4.16 L Hgb 13.1 Hct 40.0 MCV 96.2 MCH 31.5 MCHC 32.8 RDW 13.8 Plt Count 232 MPV 8.9 Immature Gran % (Auto) 0.0 Neut % (Auto) 45.0 L Lymph % (Auto) 41.7 [place] % (Auto) 11.3 H Eos % (Auto) 1.0 Baso % (Auto) 1.0 Lymph # (Auto) 1.70 [place] # (Auto) 0.5 Eos # (Auto) 0.0 Baso # (Auto) 0.0 Abs Immat Gran (auto) 0.00 Absolute Neuts (auto) 1.8 Absolute Nucleated RBC 0.000 Nucleated RBC % 0.0 Sodium 138 Potassium 4.4 Chloride 109 H Carbon Dioxide 22 Anion Gap 7 BUN < 2 L Creatinine 0.62 L Estim Creat Clear Calc 115 Estimated GFR > 60 Glucose 105 Calcium 8.8 Total Bilirubin 0.6 AST 59 H ALT 66 H Alkaline Phosphatase 67 Total Protein 6.0 L Albumin 3.8 Discharge Plan Discharge Consulting providers: Kai Huggins Discharging Clinician: Ciro Moreno Patient Disposition: Home Activity: as tolerated Diet: other - see discharge instructions Discharge Instructions: DIET: Soft, bland foods Patient Language: [place] Citizen Stand Alone Forms: General Discharge Information Follow-up/Referrals: Emilia Han MD [Primary Care Provider] - 02/28/25 (Gastritis with nausea and emesis, fatty liver) Kai Huggins MD [Physician] - Call for Appointment ( 02/20/25 CT abd/pelvis 1. No evidence of appendicitis, diverticulitis or intestinal obstruction. 2. Enhancing area in the uterus which may be fibroid. 3. Thickened wall of the urinary bladder. Evaluation for cystitis advised. 4. Fat infiltration. UA 2+ LE, WBC's 21-50, culture negative HCG negative GI consulted RUQ US unremarkable Transvaginal US unremarkable) Discharge Medications: New pantoprazole 40 mg Tablet,Delayed Release (Dr/Ec) 40 mg PO QAM Qty: 28 0RF promethazine 12.5 mg tablet 12.5 mg PO Q12H PRN (Reason: nausea and vomiting) Qty: 14 0RF Continued medroxyprogesterone 150 mg/mL suspension 150 mg IM [id number] escitalopram oxalate 20 mg tablet 20 mg PO DAILY ropinirole 1 mg tablet 1 mg PO DAILY lamotrigine 200 mg tablet extended release 24hr 200 mg PO DAILY Vraylar 4.5 mg capsule 4.5 mg PO DAILY Jornay PM 100 mg capsule,del rel,ext rel sprink 100 mg PO HS Date of admission: 02/20/25 22:22 Primary Care Provider: Emilia Han Admitting Provider: Leonard Wallace Attending physician on admission: Radha Weinberg Condition: Improved
== END 2025-02-22 14:35 | disposition home or self-care (01) ==
LOC: ANHED 22:27 → ANH3MEDSUR 02-21 07:03
PROVIDERS: Emergency Medicine; Internal Medicine Gastroenterology; Physician Assistant; Admitting Provider Internal Medicine; Emergency Provider Emergency Medicine; PCP Pediatrics; Visit Provider Nurse Practitioner Acute Care
PROC: 0DJ08ZZ Inspection of Upper Intestinal Tract, Via Natural or Artificial Opening Endoscopic (ICD-10-PCS; CPT 43239; principal; 2025-02-21 15:00)
DX: K29.70 Gastritis, unspecified, without bleeding (principal); E86.0 Dehydration; E87.29 Other acidosis; E88.89 Other specified metabolic disorders; R74.01 Elevation of levels of liver transaminase levels; K76.0 Fatty (change of) liver, not elsewhere classified; F41.9 Anxiety disorder, unspecified; F90.9 Attention-deficit hyperactivity disorder, unspecified type; F31.9 Bipolar disorder, unspecified; F17.290 Nicotine dependence, other tobacco product, uncomplicated; Z79.899 Other long term (current) drug therapy; Z90.49 Acquired absence of other specified parts of digestive tract
CPT/HCPCS: 43239; 36415; 74177; 76700; 76830; 80053; 80143; 80307; 81001; 81025; 83690; 83735; 85025; 85027; 87086; 88305; 96361; 96374; 96375; 96376; 99285; A9270; G0378; J0696; J1200; J2003; J2405; J2470; J2704; J2765; J3480; J7030; J7042; J7120; Q9967

== ENCOUNTER 2025-04-04 07:59 | Emergency (ER) | payer BC, SELFPAY ==
--- NOTE | ~2025-04-04 | CT_ITS ---
Non-contrast CT scan of the Abdomen and Pelvis Clinical indication: Abdominal pain, hematuria Technique: 2.5 mm axial scans were obtained through the abdomen and pelvis without intravenous or or al contrast. Dose reduction technique was used on this scan by utilizing automated exposure control a nd iterative reconstruction technique. The dose-length product (DLP) was 338.02 mGy-cm. COMPARISON: 02/20/2025 Findings: Images through the lung bases reveal no abnormalities. Probable 2 mm stone at the distalmost left ureter. No hydronephrosis. The liver, spleen, pancreas, gallbladder, and adrenals appear normal. There is no aortic aneurysm. There is no evidence of bowel obstruction. Images through the pelvis were performed. There is no evidence of ascites or lymphadenopathy. Urinary bladder unremarkable. No pelvic mass seen. No ascites. Impression: Probable 2 mm stone at the distalmost left ureter. No hydronephrosis. Reviewed, dictated and finalized at [facility]. Impression: Probable 2 mm stone at the distalmost left ureter. No hydronephrosis.
--- OUTSIDE RECORDS SUMMARY | 2025-04-04 08:01 | XMS_ITS ---
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 [facility] [address] [place] [address] 01/27/2025 Cristhian Phillip Plan Of Treatment No Information Progress Notes * JAYDEN IBRAHIMOB:[birth year] (20 yo F)Acc No.[id number]:01/27/2025 Patient: CURT VELEZ Provider: JUAN CARTER :2005 A ge:19 Y S ex:Female Date:01/27/2025 Address:[address] , [facility] Subjective: * Chief Complaints: * 1 . Cancelled-pt is in the hospital. * Medical History: Objective: * Vitals: Assessment: Plan: * Treatment: * Billing Information: * Visit Code: * Procedure Codes: * Electronic signature of JUAN Price on 04/04/2025 at 08:01 AM CDT Sign off status: Pending * Provider: JUAN CARTER Date: 01/27/2025 Generated for Samreen cordero/Gilles/eTransmitting on: 04/04/2025 08:01 AM SUSANT
--- OUTSIDE RECORDS SUMMARY | 2025-04-04 08:02 | XMS_ITS | Continuity of Care Document ---
Author Name [facility] Organization [facility] Care Team Providers Care Eyelet Operator Name Role Phone [facility] Unavailable Unavailable Problems Combined list of problems [...] Inactive Condition NEW ORDER 1 Last CON [id number] CURT MAURICE *MANOLO* OPHTHALMOLOGY CONSULT at [facility] on 27 Jun 2007@934634 Duty Station/Unit: strabismus URBANO ZHANG [employer]/SIGNATURE ABSENT/PRE-ACTIV E 2yo pt being followed by, Dr. Carolynn King in [place], [place] contact number /fax [phone]. Please approve for evaluation and treatment +for continuity of care. please authorize for a one year period or until . thanks, diagnosis is strabimus. pt has appt [id number] thanks please fax authorization to provider when [...] Condition [employer] 15 Jan 2008@5678 Page 1Personal Data - Privacy Act of 1973 (PL [id number])========= ======NEW ORDER 1 Last CON [id number] CURT MAURICE *MANOLO* OPHTHALMOLOGY CONSULT at [facility] on 15 Jan 2008@014216 Duty Station/Unit: strabismus URBANO ZHANG [employer]/SIGNATURE [...] Reported Comments Source NO OUTPUT FOR NCID 222210 Drug allergy (disorder) active 03/18/2008 [employer] ([facility]) Immunizations Combined list of available immunizations from the Department of Defense and Veterans Affairs facilities. 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 Status Comments Source measles, mumps and rubella virus vaccine 2 2007 Unknown, Provider [id number] Merck (MSD) complet ed measles, mumps and rubella virus vaccine DoD poliovirus vaccine, inactivated 4 2007 Unknown, Provider [id number] 10 Sanofi Pasteur ([facility]) complet ed polioviru s vaccine, inactivat ed DoD diphtheria, tetanus toxoids and acellular pertu is vaccine 5 2007 Unknown, Provider [id number] 20 [employer] ([facility]) complet ed diphtheri a, tetanus toxoids and acellular pertussis vaccine DoD varicella virus vaccine 2 2007 Unknown, Provider [id number] 21 Merck ([facility]) complet ed varicella virus vaccine DoD hepatitis A vaccine, pediatric dosage, unspecified formulation 1 2005 Unknown, Provider [id number] 31 [employer] ([facility]) complet ed hepatitis A vaccine, pediatric dosage, unspecifi ed formulati on DoD influenza virus vaccine, split virus (incl. purified surface antigen)-reti red CODE 1 2003 Unknown, Provider [id number] 15 Sanofi Pasteur ([facility]) complet ed influenza virus vaccine, split virus (incl. purified surface antigen)- retired CODE DoD diphtheria, tetanus toxoids and acellular pertu is vaccine 1 2003 Unknown, Provider [id number] 20 [employer] ([facility]) complet ed diphtheri a, tetanus toxoids [...] antigen)-reti red CODE 1 2003 Unknown, Provider [id number] 15 Sanofi Pasteur ([facility]) complet ed influenza virus vaccine, split virus (incl. purified surface antigen)- retired CODE DoD varicella virus vaccine 1 2003 Unknown, Provider [id number] 21 Merck (MSD) complet ed varicella virus vaccine DoD pneumococcal conjugate vaccine, 7 valent 3 2003 Unknown, Provider [phone] Zakia ([facility]) complet ed pneumococ goyo conjugate vaccine, 7 [...] vaccine, 7 valent 2 2002 Unknown, Provider [id number] Phoebe-Zane ([facility]) complet ed pneumococ goyo conjugate vaccine, 7 valent DoD DTaP-hepatiti s B and poliovirus vaccine 2 2002 Unknown, Provider [id number] 110 [facility] complet ed DTaP-hepa titis B and polioviru s vaccine DoD Haemophilus influenzae type b vaccine, PRP-OMP conjugate 1 2002 Unknown, Provider [id number] 49 Merck (MSD) complet ed Haemophil us influenza e type b vaccine, PRP-OMP conjugate DoD pneumococcal conjugate vaccine, 7 valent 1 2002 Unknown, Provider [phone] Wycarrol-Zane ([facility]) complet ed pneumococ goyo conjugate vaccine, 7 valent DoD DTaP-hepatiti s B and poliovirus vaccine 1 2002 Unknown, Provider [id number] 110 [employer]line ([facility]) complet ed DTaP-hepa titis [...] ADM Date DC Date Status Disposition Source [address] [place] [address] [employer] B ([facility])(Ped iatrics) OUTPATIENT [id number] 12 month well child MARLA PANDEY 03/16 Released w/o Limitations [address] [place] [address] [employer]el B [facility]P ediatri cs) [address] [place] [address] [employer] B ([facility])(Ped iatrics) OUTPATIENT [id number] 1 yr old BRODIE LIZARRAGA A 03/24 Released w/o Limitations [facility] [employer] B ([facility])(P ediatri cs) [address] [place] [address] Russel B [facility]Ped iatrics) OUTPATIENT [id number] pink eye BRODIE LIZARRAGA A 04/21 Released w/o Limitations [address] [place] [address] [employer] B ([facility])(P ediatri cs) [address] [place] [address] [employer]el B [facility])(Ped iatrics) TELE CONSULT [id number] needs new referra PHILIP Aleman 03/[address] [place] [address] [facility]el [facility])(P ediatri cs) [address] [place] [address] [employer] [facility])(Ped iatrics) TELE CONSULT [id number] needs referra l retro to 10 jan [address] for oph[address] Dr. Strnog is the provide r PHILIP RICK 03/[address] [place] [address] [employer]el [facility])(P ediatri cs) [address] [place] [address] [employer] B [facility]Ped iatrics) OUTPATIENT [id number] pre school JACK Carlos 07/04 Released w/o Limitations [address] [place] [address] [employer] [facility])(P ediatri cs) [address] [place] [address] [employer] [facility])(Ped iatrics) TELE CONSULT [id number] Referra l PHILIP Crespo 08/[address] [place] [address] [employer]el B [facility])(P ediatri cs) [address] [place] [address] Russel B [facility]) OUTPATIENT [id number] L eye Redness ROCÍO ALEJO 09/19 Released w/o Limitations [address] [place] [address] [employer] B [facility]) [address] [place] [address] [employer] ([facility])(Ped iatrics) OUTPATIENT [id number] cough/p ossible uti CARMENCITA ZHANG 01/29 Released w/o Limitations [employer] ([facility])(P ediatri cs) [facility] [employer] ([facility])(Ped iatrics) TELE CONSULT [id number] [facility] CARMENCITA ZHANG 01/29 [facility] [employer] ([facility])(P ediatri cs) [facility] [employer] ([facility])(Ped iatrics) TELE CONSULT [id number] FEVER LADI SERRANO 01/30 [facility] [employer] ([facility])(P ediatri cs) [employer] ([facility])(Ped iatrics) OUTPATIENT [id number] Problem s going to [facility] per PCM C#593-8 [facility] CARMENCITA ZHANG 02/01 Released w/o Limitations [facility] [employer] ([facility])(P ediatri cs) [facility] [employer] ([facility])(Ped iatrics) TELE CONSULT [id number] Pt needs a stephanie dong appt for that doc on 11sep LADI SERRANO 06/26 [facility] [employer] ([facility])(P ediatri cs) [facility] [employer] ([facility])(Ped iatrics) OUTPATIENT [id number] chest congest /cough/ temp CHRISTIANO CROWE 11/13 Released w/o Limitations [facility] [employer] ([facility])(P ediatri cs) [facility] [employer] ([facility])(Ped iatrics) TELE CONSULT [id number] MARVIN Lenz 01/14 [facility] [employer] ([facility])(P ediatri cs) [facility] [employer] ([facility])(Ped iatrics) OUTPATIENT [id number] [facility] physica l CARMENCITA ZHANG 03/27 Released w/o Limitations [facility] [employer] ([facility])(P ediatri cs) [facility] [employer] ([facility])(Ped iatrics) TELE CONSULT [id number] ARMANDO Abdul 11/17 [facility] [employer] ([facility])(P ediatri cs) [facility] [employer] ([facility])(Ped iatrics) TELE CONSULT [id number] referra saravia JADENAniya VIOLA, NINO 05/[address] [place] [address] Group [employer] [facility])(P ediatri cs) [address] [place] [address] [employer] [facility])(Ped iatrics) TELE CONSULT [id number] referra l/anibal i JADENAniya HORTAVICTOR MANUEL, NINO 11/[address] [place] [address] Group [employer] [facility])(P ediatri cs) [address] [place] [address] [employer] [facility])(Ped iatrics) TELE CONSULT [id number] referra saravia JADENAniya VIOLA, NINO 12/15 Referred for Appointment [address] [place] [address] Group [employer] [facility])(P ediatri cs) [address] [place] [address] [employer] [facility])(Ped iatrics) TELE CONSULT [id number] referra ARMANDO Wright 05/[address] [place] [address] Group [employer] [facility])(P ediatri cs) [address] [place] [address] [employer] [facility])(Sco tt Peds Team Jason) TELE CONSULT [id number] Notes Entered by: ROSANA FERNÁNDEZ 29 Mar 2012 1541 ------- ------- ------- ------- -- Referra rani Zhang - [id number] [address] [place] [address] JADENAniya NINO ROD 03/[address] [place] [address] Group [employer]el [facility])(S cott Peds Team Jason) [address] [place] [address] [employer] [facility])(Sco tt Peds Team Jason) TELE CONSULT [id number] Notes Entered by: Raj FELICIANO 10 May 2013 1054 ------- ------- ------- ------- -- Stephanie saravia to Dr Pradhan in JERAMY Araya 05/[address] [place] [address] Group [employer]el [facility])(S cott Peds Team Jason) [address] [place] [address] [employer] [facility])(Sco tt Peds Team Jason) TELE CONSULT [id number] Notes Entered by: TAVO ALCANTARA 01 May 2014 0835 ------- ------- ------- ------- -- Ophthal mology CONSTANCE Montanez 05/[address] [place] [address])([facility]eds Team Jason) [address] [place] [address])([facility]co [facility] Ped Team Jason) TELE CONSULT [id number] Notes Entered by: LYNSEY ALEXIS 22 May 2015 1002 ------- ------- ------- ------- -- Ophthal molrhetty WILIAN Reed 05/22 Referred for Appointment [address] [place] [address])([facility] Team Jason) [address] [place] [address])([facility] Res [facility]m [place]) TELE CONSULT [id number] Notes Entered by: SERINA WOODALL 20 May 2016 1346 ------- ------- ------- ------- -- STAT Stephanie Jovel (appt May)/Avi yce/[phone] .[phone] 32 ALYSSA WONG 05/[address] [place] [address])([facility] [place]) [address] [place] [address])([facility] Fam Res [facility]m [place]) TELE CONSULT [id number] Notes Entered by: TAMMY VARGAS 24 May 2016 0915 ------- ------- ------- ------- -- Ref discrep gissel -appt tomorro w at 1500/Avi yce/618 .[phone] 32 ALYSSA Rivas 05/[address] [place] [address])([facility] [place]) [address] [place] [address])([facility] [place]) TELE CONSULT [id number] Notes Entered by: BRANDI TEE 24 May 2016 0953 ------- ------- ------- ------- -- Updated Referra rani/ Josh / [phone] MARVINBRETStef Gallo 05/[address] [place] [address])([facility] Res [facility]m [place]) [address] [place] [address])([facility]) TELE CONSULT [id number] Notes Entered by: SERINA WOODALL 19 May 2017 1439 ------- ------- ------- ------- -- STAT Referra l Renewal Request (appt May)/Avi bone/[phone] .[phone] 32 WONGBRETStef Gallo 05/[address] [place] [address])([facility] Res [facility] [place]) [address] [place] [address])([facility] [place]) TELE CONSULT [id number] Notes Entered by: DANE PIPER 30 Oct 2017 1240 ------- ------- ------- ------- -- Network Results -OPHTHA LMOLOGY 05/25/17 MILIND PIERCE 10/[address] [place] [address])([facility] Res [facility] [place]) [address] [place] [address])([facility] tt [facility] Green) TELE CONSULT [id number] Notes Entered by: MARY JANE DE 27 May 2019 1512 ------- ------- ------- ------- -- Referra l request /jeannie / eld MARVIN ALYSSA M 05/27 Other Not Elsewhere Classified [address] [place] [address])([facility] Green) Procedures Combined list of: 1) Procedures from Department of Veterans Affairs facilities going back up to thelast 18 months, not all VA non-surgical procedures are included; 2) All procedures from the Department of Defense facilities. Procedure Procedure Type Code Date Perfomer Comments [facility] e IMMUNIZATION ADMINISTRATION (INCLUDES PERCUTANEOUS, INTRADERMAL, [...] DOSAGE-2 DOSE SCHEDULE, FOR INTRAMUSCULAR USE 03/27/2008 [facility] HEPATITIS A VACCINE (HEPA), PEDIATRIC/ADOLESCENT DOSAGE-2 DOSE SCHEDULE, FOR INTRAMUSCULAR USE 07/04/2006 DoD DIPHTHERIA, TETANUS TOXOIDS, ACELLULAR PERTUSSIS VACCINE, HEPATITIS B, AND INACTIVATED POLIOVIRUS VACCINE ([id number]), FOR INTRAMUSCULAR USE 2003 [facility] DIPHTHERIA, TETANUS TOXOIDS, AND ACELLULAR PERTUSSIS VACCINE (DTAP), WHEN ADMINISTERED TO INDIVIDUALS YOUNGER THAN 7 YEARS, FOR INTRAMUSCULAR USE 2003 [facility] Non-Physician Phone Call To Patient/Provider Brief (5-10min) Non-Physician Phone Call To Patient/Provider Brief (5-10min) [id number] 05/19/2017 ALYSSA WONG DoD Non-Physician Phone Call To Pt/Provider Intermed (11-20 min) Non-Physician Phone Call To Pt/Provider Intermed (11-20 min) [id number] 05/25/2016 ALYSSA WONG Non-Physician Phone Call To Patient/Provider Brief (5-10min) Non-Physician Phone Call To Patient/Provider Brief (5-10min) [id number] 05/24/2016 ALYSSA WONG DoD Non-Physician Phone Call To Patient/Provider Brief (5-10min) Non-Physician Phone Call To Patient/Provider Brief (5-10min) [id number] 05/20/2016 ALYSSA WONG DoD Non-Physician Phone Call To Patient/Provider Brief (5-10min) Non-Physician Phone Call To Patient/Provider Brief (5-10min) [id number] 05/22/[address] [facility] Non-Physician Phone Call To Patient/Provider Brief (5-10min) Non-Physician Phone Call To Patient/Provider Brief (5-10min) [id number] 05/01/[address] [facility] Non-Physician Phone Call To Pt/Provider Intermed (11-20 min) Non-Physician Phone Call To Pt/Provider Intermed (11-20 min) [id number] 05/10/[address] [facility] Non-Physician Phone Call To Patient/Provider Brief (5-10min) Non-Physician Phone Call To Patient/Provider Brief (5-10min) [id number] 04/03/[address] [facility] Hep A Vac Ped/Adol Dosage (Intramusc Use) 2 Dose Schedule Hep A Vac Ped/Adol Dosage (Intramusc Use) 2 Dose Schedule 01569 03/27/2008 [facility] Vaccines Viral Varicella (Active) Vaccines Viral Varicella (Active) 02141 03/27/2008 [facility] Vaccines Viral Measles, Mumps and Rubella, Live Vaccines Viral Measles, Mumps and Rubella, Live 40516 03/27/2008 [facility] Vaccines Viral Polio, Inactivated (Salk) Vaccines Viral Polio, Inactivated (Salk) 66770 03/27/2008 [facility] DTaP Vaccine DTaP Vaccine 40847 03/27/2008 [facility] Immunization Administration One Vaccine Immunization Administration One Vaccine 92002 03/27/2008 [facility] Immunization Administration Each Additional Vaccine 03/27/2008 [facility] Immunization Administration One Vaccine Immunization Administration One Vaccine 29365 07/04/[address] [facility] Hep A Vac Ped/Adol Dosage (Intramusc Use) 2 Dose Schedule Hep A Vac Ped/Adol Dosage (Intramusc Use) 2 Dose Schedule 53578 07/04/[address] [facility] Social History Combined list of available smoking, tobacco, and other social history from Department of Defense and Veterans Affairs facilities. Social History Type Response Date Comment Sour e This section is an empty social history section. [facility]
--- OUTSIDE RECORDS SUMMARY | 2025-04-04 08:02 | XMS_ITS | Referral Summary ---
Author Organization [facility] Address [address] [place] [address] Care Team Providers Care Artificial Pearl Maker Name Role Phone Emilia Han MD Primary Care Provider + Elias Vasques MD Unavailable [phone] Allergies No known active allergies Medications [...] (06/04/2021): Added automatically from request for surgery [id number] Syncope 11/18/2019 Assessment & Plan (11/18/2019 3:57 PM INFORMATION SYSTEMS ADMINISTRATOR): Larissa Maurice is a 14 y.o. female [...] - Pain control - Cyclobenzaprine q8h PRN; [place] q6hr PRN - PT evaluate and treat [...] on file Legal Sex Female 12:52 PM INFORMATION SYSTEMS ADMINISTRATOR Gender Identity Female 11/24/2023 3:03 PM INFORMATION SYSTEMS ADMINISTRATOR Sexual Orientation Bisexual 11/24/2023 3: 03 PM INFORMATION SYSTEMS ADMINISTRATOR Last Filed Vital Signs Vital Sign Reading Time Taken Comments Blood Pressure 130/84 10/04/2024 11:10 AM INFORMATION SYSTEMS ADMINISTRATOR Pulse 81 10/04/2024 11:10 AM INFORMATION SYSTEMS ADMINISTRATOR Temperature 36.1 C (97 F) 10/04/2024 10:47 AM INFORMATION SYSTEMS ADMINISTRATOR Respiratory Rate 25 10/04/2024 11:10 AM INFORMATION SYSTEMS ADMINISTRATOR Oxygen Saturation 94% 10/04/2024 11:10 AM INFORMATION SYSTEMS ADMINISTRATOR Inhaled Oxygen Concentration - - Weight 63.5 kg (140 lb) 10/04/2024 8:08 AM INFORMATION SYSTEMS ADMINISTRATOR Height 167.6 cm (5' 6) 10/04/2024 8:08 AM INFORMATION SYSTEMS ADMINISTRATOR Body Mass Index 22.6 10/04/2024 8:08 AM INFORMATION SYSTEMS ADMINISTRATOR Plan of Treatment Not on file Medical Devices Explanted Type Area Tower Air Traffic Control Specialist Device Identifier Shelf Expiration Date Model / Serial / Lot [employer]/Orth o [id number] 4.5mm 50mm Low Profile Internal Capture Femur Screw Bone Trigen - [id number] Implanted:Qty: 1 on 04/28/2020 by Andres Maharaj MD at [facility] Explanted:Qty: 1 on 09/13/2021 by Andres Maharaj MD Screw Left: Femur [employer]/O rtho 05/14/2029 [id number] / / Trigen Adolescent Allison Implanted:Qty: 1 on 11/11/2019 by Andres Maharaj MD at [facility] Explanted:Qty: 1 on 09/13/2021 by Andres Maharaj MD Right: Femur [employer] 10/23/2024 [id number] / / [id number] Description:[id number]-6AL-4V [employer]/Orth o [id number] 4.5mm 45mm Low Profile Internal Capture Femur Screw Bone Trigen - [id number] Implanted:Qty: 1 on 11/11/2019 by Andres Maharaj MD at [facility] Explanted:Qty: 1 on 09/13/2021 by Andres Maharaj MD Right: Femur [employer] r[employer]o 04/22/2024 [id number] / / [id number] [employer]/Orth o [id number] 4.5mm 42.5mm Low Profile Internal Capture Femur Screw Bone Trigen - [id number] Implanted:Qty: 1 on 11/11/2019 by Andres Maharaj MD at [facility] Explanted:Qty: 1 on 09/13/2021 by Andres Maharaj MD Right: Femur [employer] rtho 03/31/2029 [id number] / / [id number] [employer]/Orth o [id number] 4.5mm 52.5mm Low Profile Internal Capture Femur Screw Bone Trigen - [id number] Implanted:Qty: 1 on 11/11/2019 by Andres Maharaj MD at [facility] Explanted:Qty: 1 on 09/13/2021 by Andres Maharaj MD Right: Femur [employer]o 12/21/2022 [id number] / / [id number] [employer]/Orth o [id number] Trigen 8.5mm 38cm Antegrade Femur Left 130d Nail Intramedullary - [id number] Implanted:Qty: 1 on 04/28/2020 by Andres Maharaj MD at [facility] Explanted:Qty: 1 on 09/13/2021 by Andres Maharaj MD Left: Femur [employer] rtho 05/18/2027 [id number] / / [employer]/Orth o [id number] 4.5mm 42.5mm Low Profile Internal Capture Femur Screw Bone Trigen - [id number] Implanted:Qty: 1 on 04/28/2020 by Andres Maharaj MD at [facility] Explanted:Qty: 1 on 09/13/2021 by Andres Maharaj MD Left: Femur [employer]/O rtho 06/01/2029 [id number] / / Description:[place] [address] [employer] [place] [facility] CLAIM[facility] [employer] [place] [employer] [place] [facility] [place] [employer] [place] [facility] CLAIMS Advance Directives For more information, please contact: [phone] Documents on File Type Date Recorded Patient Paper Sample Clerk Expl anation ADVANCE DIRECTIVE 09/13/2021 2:40 PM * Full Code (Latest Code Status on File) Date Activated Date Inactivated Comments 04/28/2020 5:03 PM 04/29/2020 5:07 PM * Full Code Date Activated Date Inactivated Comments 11/18/2019 2:57 PM 11/19/2019 6:22 PM * Full Code Date Activated Date Inactivated Comments 11/11/2019 2:47 PM 11/12/2019 6:23 PM Care Teams Artificial Pearl Maker Relationship Specialty Start Date End Date Emilia Han MD [address] [facility] [place] [address] PCP - General 05/01/17 Elias Vasques MD [address] [facility] [address] [place] [address] Surgeon Orthopedic Surgery 11/18/19
--- OUTSIDE RECORDS SUMMARY | 2025-04-04 08:02 | XMS_ITS | Patient Health Record ---
Author Organization [facility] Address [address] [place] [address] Care Team Providers Care Telehealth Coordinator Name Role Phone Cristhian Phillip Unavailable [phone] BonitaandrewAliceYazmin Unavailable [phone] Allergies No Known Allergies Results Component Value Reference Range Notes UDT Reviewed date:05/03/2024 08:55:39 AM Interpretation: Performing Lab: Notes/Report: THC P 0 - 50 ng/ml Cocaine N 0 - 300 ng/ml Amphetamine N 0 - 1000 ng/ml Buprenorphine (BUP) N 0 - 10 ng/ml Secobarbital (Bar) N 0 - 300 ng/ml Oxazepam (BZO) N 0 - 300 ng/ml 0-nfqkjixbnn-1,2-dsehluoe-5,3-diphenylpyrrolidine (TIFFANIE P) N 0 - 300 ng/ml Methamphetamine (MET) N 0 - 1000 ng/ml Methylenedioxymethamphetamine (MDMA) N 0 - 500 ng/ml Morphine (MOP 300/TIL8941) N 0 - 300 ng/ml Methadone (MTD) [...] 12/19/2023 Active rOPINIRole HCl 0.5 MG 1 TABLET BY MOUTH 1 TO 3 HOURS BEFORE BEDTIME for 90 Active medroxyPROGESTERone Acetate 150 MG/ML Intramuscular 12/19/2023 [...] Risk Notes Problem Mixed bipolar I disorder (99645889) Bipolar disorder, current episode mixed, unspecified (F31.60) 12/19/19 Active confirmed Problem Generalized anxiety disorder (86824485) Generalized anxiety disorder (F41.1) 12/19/19 Active confirmed Problem Attention deficit hyperactivity disorder, combined type (97262875) Attention-deficit hyperactivity disorder, combined type (F90.2) 03/12/20 Active confirmed Problem Restless legs syndrome (50447360) Restless leg syndrome (G25.81) Active confirmed Vital Signs Heart Rate 118 /min 10/01/2024 Height-cm 167.64 cm 10/01/2024 Blood pressure diastolic 88 mm Hg 10/01/2024 Weight-kg 63.5 kg 10/01/2024 Height 66.00 in 10/01/2024 Blood pressure systolic 133 mm Hg 10/01/2024 Weight 140.0 lbs 10/01/2024 BMI 22.59 kg/m2 10/01/2024 Encounters Encounter Location Date Provider Diagnosis [facility] [address] [facility] [address] [place] [address] 05/02/2024 Cristhian Phillip [facility] [address] [facility] [address] [place] [address] 05/03/2024 Cristhian Phillip Attention-deficit hyperactivity disorder, combined type F90.2 ; Generalized anxiety disorder F41.1 and Bipolar disorder, current episode mixed, unspecified F31.60 [facility] [address] [place] [address] 05/31/2024 Cristhian Phillip Attention-deficit hyperactivity disorder, combined type F90.2 ; Generalized anxiety disorder F41.1 ; Bipolar disorder, current episode mixed, unspecified F31.60 and Restless leg syndrome G25.81 [facility], [facility] [address] [place] [address] 07/02/2024 Cristhian Phillip Attention-deficit hyperactivity disorder, combined type F90.2 ; Generalized anxiety disorder F41.1 ; Bipolar disorder, current episode mixed, unspecified F31.60 and Restless leg syndrome G25.81 [facility], [facility] [address] [place] [address] 07/04/2024 Cristhian Phillip [facility], [facility] [address] [place] [address] 10/01/2024 Cristhian Phillip Attention-deficit hyperactivity disorder, combined type F90.2 ; Generalized anxiety disorder F41.1 ; Bipolar disorder, current episode mixed, unspecified F31.60 and Restless leg syndrome G25.81 [facility], [facility] [address] [place] [address] 12/30/2024 Cristhian Phillip Attention-deficit hyperactivity disorder, combined type F90.2 ; Generalized anxiety disorder F41.1 ; Bipolar disorder, current episode mixed, unspecified F31.60 and Restless leg syndrome G25.81 [facility], [facility] [address] [place] [address] 07/04/2024 Cristhian Ramachandrana [facility], [facility] [address] [place] [address] 04/20/2024 Yazmin Kesha Attention-deficit hyperactivity disorder, combined type F90.2 [facility], [facility] [address] [place] [address] 06/09/2024 Cristhian Urbinaoza [facility], [facility] [address] [place] [address] 06/13/2024 Cristhian Phillip Attention-deficit hyperactivity disorder, combined type F90.2 and Bipolar disorder, current episode mixed, unspecified F31.60 [facility], [facility] [address] [place] [address] 07/15/2024 Cristhian Phillip Bipolar disorder, current episode mixed, unspecified F31.60 and Attention-deficit hyperactivity disorder, combined type F90.2 [facility] [address] [facility] [address] [address] 08/23/2024 Cristhian Phillip Attention-deficit hyperactivity disorder, combined type F90.2 [facility] [address] [facility] [address] [address] 08/25/2024 Cristhian Phillip Bipolar disorder, current episode mixed, unspecified F31.60 and Restless leg syndrome G25.81 [facility] [address] [facility] [address] [address] 09/30/2024 Cristhian Phillip [place] [address] [facility] [address] [address] 11/03/2024 Cristhian Phillip Attention-deficit hyperactivity disorder, combined type F90.2 [place] [address] [facility] [address] [address] 02/24/2025 [facility] [address] [address] 03/21/2025 Cristhian Phillip Assessments Encounter Date Diagnosis (ICD Code) Assessment Notes Treatment Notes Treatment Clinical Notes Section Notes 10/01/2024 Attention-defic it hyperactivity disorder, combined type [...] the patient's progress and medication effectiveness. 12/30/2024 Attention-defic it hyperactivity disorder, combined type (ICD-10 - F90.2) 07/15/2024 Bipolar disorder, current episode mixed, unspecified (ICD-10 - F31.60) 07/02/2024 Attention-defic it hyperactivity disorder, combined type [...] one tablet 1-3 hours before bedtime, to [facility] pharmacy in [place], [place]. - Ensure patient receives their own [...] multiple bottles of the same medication from [facility]. Plan: - Work with the pharmacy to streamline medication dispensing and minimize confusion for the patient. - Continue monitoring patient's adherence to prescribed medications. 06/13/2024 Attention-defic it hyperactivity disorder, combined type [...] mood stability, twitching symptoms, and overall well-being. 04/20/2024 Attention-defic it hyperactivity disorder, combined type (ICD-10 - F90.2) 11/03/2024 Attention-defic it hyperactivity disorder, combined type (ICD-10 - F90.2) 08/25/2024 Bipolar disorder, current episode mixed, unspecified (ICD-10 - F31.60) 05/31/2024 Generalized anxiety disorder (ICD-10 - F41.1) [...] side effects. Adjust treatment plan as necessary. 08/23/2024 Attention-defic it hyperactivity disorder, combined type [...] mood stability, twitching symptoms, and overall well-being. 08/25/2024 Restless leg syndrome (ICD-10 - G25.81) 05/31/2024 Bipolar disorder, current episode mixed, unspecified [...] side effects. Adjust treatment plan as necessary. 07/02/2024 Generalized anxiety disorder (ICD-10 - F41.1) [...] one tablet 1-3 hours before bedtime, to [facility] pharmacy in [place], [place]. - Ensure patient receives their own [...] multiple bottles of the same medication from [facility]. Plan: - Work with the pharmacy to streamline medication dispensing and minimize confusion for the patient. - Continue monitoring patient's adherence to prescribed medications. 06/13/2024 Bipolar disorder, current episode mixed, unspecified (ICD-10 - F31.60) 07/15/2024 Attention-defic it hyperactivity disorder, combined type (ICD-10 - F90.2) 12/30/2024 Generalized anxiety disorder (ICD-10 - F41.1) escitalopram 20mg daily 10/01/2024 Generalized anxiety disorder (ICD-10 - F41.1) [...] monitor the patient's progress and medication effectiveness. 10/01/2024 Bipolar disorder, current episode mixed, unspecified [...] agents (eg, ARIPiprazole Oral Tablet 2 MG). 07/02/2024 Bipolar disorder, current episode mixed, unspecified [...] one tablet 1-3 hours before bedtime, to [facility] pharmacy in [place], [place]. - Ensure patient receives their own [...] multiple bottles of the same medication from [facility]. Plan: - Work with the pharmacy to streamline medication dispensing and minimize confusion for the patient. - Continue monitoring patient's adherence to prescribed medications. 05/31/2024 Restless leg syndrome (ICD-10 - G25.81) [...] stability, twitching symptoms, and overall well-being. 07/02/2024 Restless leg syndrome (ICD-10 - G25.81) [...] one tablet 1-3 hours before bedtime, to [facility] pharmacy in [place], [place]. - Ensure patient receives their own [...] multiple bottles of the same medication from [facility]. Plan: - Work with the pharmacy to streamline medication dispensing and minimize confusion for the patient. - Continue monitoring patient's adherence to prescribed medications. 12/30/2024 Restless leg syndrome (ICD-10 - G25.81) [...] the patient's progress and medication effectiveness. 12/30/2024 Other 1. Bipolar Disorder: - Patient [...] obtain Jornay (methylphenidate ) due to high vxx-ej-zbuwtv costs, even with a copay card. Plan: [...] Coverage End Date [employer] [employer] [address] [place] [address] [id number] [place] Child - Insured has Financial Responsibility [facility] [address] [place] [address] [id number] CONSTANCE IBRAHIM Child - Insured has Financial Responsibility Medical (General) History Medical History History ICD Code Problems: Attention deficit hyperactivit y disorder, combined type Bipolar affective disorder, current epis ode mixed Generalized anxiety disorder Mild recurrent major depression Unable to concentrate , Surgical History Surgery Date(Month/Year) Unlisted px ant segment eye (53938) Other 11/11/2019 Unlisted px femur/knee (05249) Right Leg 11/11/2019 Appendectomy (71056) 11/14/2022 Any surgical history 04/27/2020 Unlisted px femur/knee (18637) LEFT Leg 04/28/2020
--- OUTSIDE RECORDS SUMMARY | 2025-04-04 08:02 | XMS_ITS | Clinical Summary ---
Author Organization [facility] Address [address] [place] [address] Care Team Providers Care Signs And Displays Sales Representative Name Role Phone Emilia Han MD Primary Care Provider + Elias Vasques MD Unavailable [phone] Allergies No known active allergies Medications [...] (06/04/2021): Added automatically from request for surgery [id number] Syncope 11/18/2019 Assessment & Plan (11/18/2019 3:57 PM BUILDING MAINTENANCE CUSTODIAN): Larissa Maurice is a 14 y.o. female [...] - Pain control - Cyclobenzaprine q8h PRN; Draper q6hr PRN - PT evaluate and treat [...] TW Conv) Diabetes Mother Diabetes Other Diabetes [facility] - --gestational in mom (Added by TW [...] on file Legal Sex Female 12:52 PM BUILDING MAINTENANCE CUSTODIAN Gender Identity Female 11/24/2023 3:03 PM BUILDING MAINTENANCE CUSTODIAN Sexual Orientation Bisexual 11/24/2023 3: 03 PM BUILDING MAINTENANCE CUSTODIAN Obstetrics History Last Filed Vital Signs Vital Sign Reading Time Taken Comments Blood Pressure 130/84 10/04/2024 11:10 AM BUILDING MAINTENANCE CUSTODIAN Pulse 81 10/04/2024 11:10 AM BUILDING MAINTENANCE CUSTODIAN Temperature 36.1 C (97 F) 10/04/2024 10:47 AM BUILDING MAINTENANCE CUSTODIAN Respiratory Rate 25 10/04/2024 11:10 AM BUILDING MAINTENANCE CUSTODIAN Oxygen Saturation 94% 10/04/2024 11:10 AM BUILDING MAINTENANCE CUSTODIAN Inhaled Oxygen Concentration - - Weight 63.5 kg (140 lb) 10/04/2024 8:08 AM BUILDING MAINTENANCE CUSTODIAN Height 167.6 cm (5' 6) 10/04/2024 8:08 AM BUILDING MAINTENANCE CUSTODIAN Body Mass Index 22.6 10/04/2024 8:08 AM BUILDING MAINTENANCE CUSTODIAN Plan of Treatment Health Maintenance Due Date [...] 5 season) 2024 01/13/2021, 12/24/2020 Influenza Vaccine (Season Ended) 2025 07/24/2018, 08/07/2017, 07/19/2013, Additional history exists Hepatitis B Screening Completed 2003 , 2003, 2003 Varicella Vaccines Completed 03/27/2008, 03/16/2004 HPV Vaccines Completed 05/22/2015, 08/24, 05/16/2014 Medical Devices Explanted Type Area Compensation And Benefits Advisor Device Identifier Shelf Expiration Date Model / Serial / Lot [employer]/Jacob o [id number] 4.5mm 50mm Low Profile Internal Capture Femur Screw Bone Trigen - [id number] Implanted:Qty: 1 on 04/28/2020 by Andres Maharaj MD at [facility] Explanted:Qty: 1 on 09/13/2021 by Andres Maharaj MD Screw Left: Femur [employer]/O rtho 05/14/2029 [id number] / / Trigen Adolescent Allison Implanted:Qty: 1 on 11/11/2019 by Andres Maharaj MD at [facility] Explanted:Qty: 1 on 09/13/2021 by Andres Maharaj MD Right: Femur [employer] 10/23/2024 [id number] / / [id number] Description:[id number]-6AL-4V [employer]/Orth o [id number] 4.5mm 45mm Low Profile Internal Capture Femur Screw Bone Trigen - [id number] Implanted:Qty: 1 on 11/11/2019 by Andres Maharaj MD at [facility] Explanted:Qty: 1 on 09/13/2021 by Andres Maharaj MD Right: Femur [employer]/O rtho 04/22/2024 [id number] / / [id number] [employer]/Orth o [id number] 4.5mm 42.5mm Low Profile Internal Capture Femur Screw Bone Trigen - [id number] Implanted:Qty: 1 on 11/11/2019 by Andres Maharaj MD at [facility] Explanted:Qty: 1 on 09/13/2021 by Andres Maharaj MD Right: Femur [employer]/O rtho 03/31/2029 [id number] / / [id number] [employer]/Orth o [id number] 4.5mm 52.5mm Low Profile Internal Capture Femur Screw Bone Trigen - [id number] Implanted:Qty: 1 on 11/11/2019 by Andres Maharaj MD at [facility] Explanted:Qty: 1 on 09/13/2021 by Andres Maharaj MD Right: Femur [employer]/O rtho 12/21/2022 [id number] / / [id number] [employer]/Orth o [id number] Trigen 8.5mm 38cm Antegrade Femur Left 130d Nail Intramedullary - [id number] Implanted:Qty: 1 on 04/28/2020 by Andres Maharaj MD at [facility] Explanted:Qty: 1 on 09/13/2021 by Andres Maharaj MD Left: Femur [employer]/O rtho 05/18/2027 [id number] / / [employer]/Orth o [id number] 4.5mm 42.5mm Low Profile Internal Capture Femur Screw Bone Trigen - [id number] Implanted:Qty: 1 on 04/28/2020 by Andres Maharaj MD at [facility] Explanted:Qty: 1 on 09/13/2021 by Andres Maharaj MD Left: Femur [employer]/O rtho 06/01/2029 [id number] / / Description:[place] [address] [employer] [facility] CLAIMS [employer] [place] [id number] [place] [address] CLAIMS [place] [facility] CLAIMS Advance Directives For more information, please contact: [phone] Documents on File Type Date Recorded Patient Rn Unit Manager Expl anation ADVANCE DIRECTIVE 09/13/2021 2:40 PM * Full Code (Latest Code Status on File) Date Activated Date Inactivated Comments 04/28/2020 5:03 PM 04/29/2020 5:07 PM * Full Code Date Activated Date Inactivated Comments 11/18/2019 2:57 PM 11/19/2019 6:22 PM * Full Code Date Activated Date Inactivated Comments 11/11/2019 2:47 PM 11/12/2019 6:23 PM Care Teams Signs And Displays Sales Representative Relationship Specialty Start Date End Date Emilia Han MD [address] [place] [address] PCP - General 05/01/17 Elias Vasques MD [address] [facility] [address] [place] [address] Surgeon Orthopedic Surgery 11/18/19
--- OUTSIDE RECORDS SUMMARY | 2025-04-04 08:02 | XMS_ITS | Continuity of Care Document ---
Author Organization [facility] Address [address] [place] [address] Phone Care Team Providers Care Coal Passer Name Role Phone Christine Pradhan Unavailable Unavailable [...] Copied on Encounter Office/outpat ient Visit, Est [facility], [address], [place], [place], [address], [place] tel:[phone] SEC [facility] No Information 0 Carolynn King. [address] , [address], [place], [address], [place]. tel:[phone] Office/outpat ient Visit, [facility], [address] [place] [address] [address], [place], [place], [id number], [place] tel:[phone] SEC [facility] No Information Mar-0 9-201 0 Carolynn Aparicion. [address] , [address], [place], [place], [facility], . tel:[phone] [facility], [address] [place] [address] [address], [place], [place], [address], [place] tel:[phone] [facility] [place] No Information May-0 6-200 9 Carolynn AparicionRoxane [address], [place], [facility], . tel:[phone] Office/outpat ient Visit, [facility], [address] [place] [address] [address], [place], [place], [address], [place] tel:[phone] SEC [facility] No Information Fe-1 0-200 9 Carolynn AparicionRoxane [address], [place], [facility], [place]. tel:[phone] [facility], [address] [place] [address] [address], [place], [place], [address], [place] tel:[phone] SEC [facility] No Information Apr-2 5-200 8 Carolynn Sneed [address] , [address], [place], [facility], [place]. tel:[phone] Office/outpat ient Visit, [facility], [address] [place] [address] [address], [place], [place], [address], [place] tel:[phone] SEC [facility] No Information Dec-2 5-200 8 Carolynn AparicionRoxane [address], [place], [facility], [place]. tel:[phone] [facility], [address], [place], [place], [address], [place] tel:[phone] SEC [facility] No Information 7 Pradhan Christine. [address], [place], [facility], [place]. tel:[phone] [facility], [address], [place], [place], [address], [place] tel:[phone] SEC [facility] No Information 7 Pradhan Christine. [address], [place], [facility], [place]. tel:[phone] [facility], [address], [place], [place], [address], [place] tel:[phone] SEC [facility] No Information 7 Pradhan Christine. [address], [place], [facility], [place]. tel:[phone] [facility], [address], [place], [place], [address], [place] tel:[phone] [facility] No Information 7 Pradhan Christine. [address], [place], [facility], [place]. tel:[phone] [facility], [address], [place], [place], [address], [place] tel:[phone] SEC [facility] No Information 7 Pradhan Christine. [address], [place], [facility], [place]. tel:[phone] [facility], [address], [place], [place], [address], [place] tel:[phone] SEC [facility] No Information Carolynn Sneed [address], [place], [address], [place]. tel:[phone] Office/outpat ient Visit, [facility], [address], [place], [place], [address], [place] tel:[phone] [facility] No Information Carolynn King. [address] , [address], [place], [address], [place]. tel:[phone] Family History Family Member Type Diagnosis Age [...]
[2025-04-04 08:05] VITALS: BP 158/106; PULSE 114; RESP 18; TEMP 36.2; O2SAT 99
[2025-04-04 08:19] VITALS: BP 150/110; PULSE 113; RESP 18; TEMP 36.6; O2SAT 98
--- NOTE | 2025-04-04 08:22 | ED_ITS ---
HPI - General Adult General Chief complaint: Nausea/Vomiting/Diarrhea Stated complaint: vomiting since last night Time Seen by Provider: 04/04/25 08:09 History of Present Illness HPI narrative: 20-year-old female presenting to the emergency department for evaluation for nausea and vomiting and associated epigastric pain. Patient reports he did drink alcohol last night thinks this may have irritated her previously known gastritis. Patient does admit to THC use but states that it is infrequent and she does not use high doses. Patient denies any prior diagnosis of cannabinoid hyperemesis syndrome. Patient states she did have similar symptoms approximately 1 month ago and was diagnosed with gastritis at the time. Patient had been started on pantoprazole at the time and states this did help with her symptoms. Related Data Home Medications ?Medication ?Instructions ?Recorded ?Confirmed ?Last Taken ?Type escitalopram oxalate 20 mg tablet 20 mg PO DAILY 11/13/22 02/21/25 02/20/25 History medroxyprogesterone 150 mg/mL 150 mg IM [id number] 11/13/22 02/21/25 01/14/25 History intramuscular suspension cariprazine 4.5 mg capsule 4.5 mg PO DAILY 02/21/25 02/21/25 02/20/25 History (Vraylar) lamotrigine 200 mg tablet,extended 200 mg PO DAILY 02/21/25 02/21/25 02/20/25 History release 24 hr methylphenidate HCl 100 mg 100 mg PO HS 02/21/25 02/21/25 02/20/25 History capsule,delayed release,ext release sprinkle (Jornay PM) ropinirole 1 mg tablet 1 mg PO DAILY 02/21/25 02/21/25 02/20/25 History Allergies Allergy/AdvReac Type Severity Reaction Status Date / Time grass pollen Allergy Mild Itching Verified 04/04/25 08:08 weed pollen Allergy Mild Itching Verified 04/04/25 08:08 Review of Systems 2 Review of Systems: All systems reviewed & are unremarkable except as noted in HPI and below PMFSH Past Medical History Medical History (Updated 04/04/25 @ 10:41 by Gonzalez Valentine MD) Gastritis Nausea Nausea and vomiting in adult Anxiety Attention deficit hyperactivity disorder Bipolar disorder Fatty infiltration of liver noted on CT 02/20/2025 Surgical History Surgical History (Updated 02/20/25 @ 23:49 by Saniya Wyatt PA-C) History of strabismus surgery History of orthopedic surgery 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 Code status: Full code. Smoking status: Current every day smoker Tobacco type: e-cigarettes/vaping Smokeless tobacco user: dissolvable tobacco Second hand tobacco smoke exposure: No Additional smoking assessment comments: vape Alcohol intake: current Drinks per week: 4 Alcohol use details: Social alcohol use in moderation. Substance use: never Substance use type: marijuana Do You Feel Safe in your Home?: Yes Lack of Transportation: No Lack of Food: Never True Current Housing: I Have Housing Concerned About Future Housing: No Difficulty Paying Gas/Electric Bills: No Difficulty Paying for Meds: No Currently Unemployed: No Education: Bachelor's Degree Difficulty w/ Childcare or Family Care: No Additional living arrangements comments: Lives with mother in [place]. 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 Spiritual care concerns: No Exam 2 Narrative: APPEARANCE: Well appearing, no pain, no distress, well-nourished. HEAD: normocephalic, atraumatic. EYES: PERRLA/EOMI, conjunctivae clear. NOSE: Normal no drainage EARS:TMS clear with good light reflex. THROAT: Pharynx clear, no exudate. NECK: Supple. No adenopathy, no masses. RESPIRATORY: Airway patent, respirations nonlabored. Clear to auscultation bilaterally, no rales, rhonchi, wheezing. CARDIOVASCULAR: Regular rate and rhythm without murmurs rubs or gallops. ABDOMINAL: Epigastric abdominal pain with tenderness to palpation MUSCULOSKELETAL: Moves all extremities. Strength/ROM intact, No edema, No calf tenderness. NEURO: Alert. Cranial nerves II through XII intact. Good gait. Good coordination SKIN: Warm, dry. Normal Color Course Vital Signs Vital signs: Vital Signs Temperature 97.1 F L 04/04/25 08:05 Pulse Rate 114 H 04/04/25 08:05 Respiratory Rate 18 04/04/25 08:05 Blood Pressure 158/106 H 04/04/25 08:05 Pulse Oximetry 99 04/04/25 08:05 Temperature 97.8 F 04/04/25 11:00 Pulse Rate 86 04/04/25 11:00 Respiratory Rate 16 04/04/25 11:00 Blood Pressure 138/88 04/04/25 11:00 Pulse Oximetry 100 04/04/25 11:00 Medical Decision Making MDM Narrative Medical decision making narrative: 20-year-old female presents to the emergency department evaluation for nausea vomiting. Patient is currently afebrile. No acute abnormalities on her CMP patient's urine does show some red blood cells and 21-50 white blood cells, occasional squamous with no bacteria. Denies any urinary symptoms. Urine culture will be ordered. Patient CT scan does show a probable 2 mm ureteral calculi at the distal-most left ureter with no evidence of hydronephrosis. Patient was treated with antiemetics on arrival provided Toradol and Flomax after the CT scan showing a potential kidney stone. Patient will be started on antibiotics for outpatient. Differential Diagnosis Differential Diagnosis: Colitis, diverticulitis, urinary tract infection, cannabinoid hyperemesis syndrome, gastritis Vital Signs Vital Signs: Vital Signs Temperature 97.1 F L 04/04/25 08:05 Pulse Rate 114 H 04/04/25 08:05 Respiratory Rate 18 04/04/25 08:05 Blood Pressure 158/106 H 04/04/25 08:05 Pulse Oximetry 99 04/04/25 08:05 Temperature 97.8 F 04/04/25 11:00 Pulse Rate 86 04/04/25 11:00 Respiratory Rate 16 04/04/25 11:00 Blood Pressure 138/88 04/04/25 11:00 Pulse Oximetry 100 04/04/25 11:00 Lab Data Lab results reviewed: Yes I reviewed the patient's lab results. 04/04/25 08:39 Labs: Lab Results 04/04/25 04/04/25 04/04/25 Range/Units 08:24 08:39 09:10 Sodium 137 (137-145) mmol/L Potassium 3.7 (3.4-5.0) mmol/L Chloride 101 (98-107) mmol/L Carbon Dioxide 19 L (22-30) mmol/L Anion Gap 17 H (4-12) mmol/L BUN 4 L (7-17) mg/dL Creatinine 0.64 L (0.7-1.0) mg/dL Estim Creat Clear Calc 115 ml/min Estimated GFR > 60 (59 - ) Glucose 165 H (65-110) mg/dL Calcium 9.8 (8.4-10.2) mg/dL Total Bilirubin 0.8 (0.2-1.3) mg/dL AST 44 H (14-36) U/L ALT 46 H (6-35) U/L Alkaline Phosphatase 120 (38-126) U/L Total Protein 8.4 H (6.3-8.2) g/dL Albumin 5.2 H (3.5-5.1) g/dL Lipase 63 (23-300) U/L Urine Color Yellow (Yellow) Urine Appearance Cloudy H (Clear) Urine pH 6.0 (5.0-9.0) Ur Specific [place] >= 1.030 (1.001-1.035) Urine Protein 2+ H (Negative) mg/dL Urine Glucose (UA) Negative (Negative) mg/dL Urine Ketones Trace H (Negative) mg/dL Ur Blood (Man) Trace-lysed H (Negative) Urine Nitrate Negative (Negative) Urine Bilirubin Negative (Negative) Urine Urobilinogen 0.2 (<2.0) mg/dL Add Ur Microanalysis Reviewed Leukocyte Esterase Rfl Negative (Negative) ARTURO/UL Urine RBC 3-5 H (0-2) /hpf Urine WBC 21-50 H (0-3) /hpf Ur Squamous Epith Cells Occasional (Few) /hpf Urine Bacteria None seen /hpf Urine Casts 11-20 Hyaline Casts Present (None) /lpf Urine Mucus Present /lpf POC Urine HCG, Qual Negative (Negative) Imaging Data Radiologist's impression: Impressions Abdomen/Pelvis CT 04/04/25 10:19 Impression: Probable 2 mm stone at the distalmost left ureter. No hydronephrosis. Discharge Plan Discharge Clinical Impression: Nausea & vomiting, Calculi, ureter Patient Disposition: Home Condition: Stable Instructions: Antibiotic Form, Urinary Tract Infection in Women (DC), Acute Nausea and Vomiting (DC), How to Strain Your Urine (ED), Flank Pain (ED) Additional Instructions: Tylenol and ibuprofen for pain control. Zofran as needed for nausea control. Flomax as directed to help you pass the stone. Strain your urine as instructed. Have close follow-up with Urology. If you have any worsening symptoms then please call or return to the emergency department. Patient Language: Citizen Of [place] Prescriptions: New tamsulosin [Flomax] 0.4 mg capsule 0.4 mg PO DAILY 14 Days Qty: 14 0RF cephalexin 500 mg capsule 500 mg PO Q8H 7 Days Qty: 21 0RF ondansetron 4 mg tablet,disintegrating 4 mg PO Q8H PRN (Reason: nausea and vomiting) Qty: 14 0RF No Action medroxyprogesterone 150 mg/mL suspension 150 mg IM [id number] escitalopram oxalate 20 mg tablet 20 mg PO DAILY ropinirole 1 mg tablet 1 mg PO DAILY lamotrigine 200 mg tablet extended release 24hr 200 mg PO DAILY Vraylar 4.5 mg capsule 4.5 mg PO DAILY Jornay PM 100 mg capsule,del rel,ext rel sprink 100 mg PO HS pantoprazole 40 mg Tablet,Delayed Release (Dr/Ec) 40 mg PO QAM Qty: 28 0RF promethazine 12.5 mg tablet 12.5 mg PO Q12H PRN (Reason: nausea and vomiting) Qty: 14 0RF Follow-up/Referrals: Emilia Han MD [Primary Care Provider] - Gerardo Busch MD [Physician] -
--- OUTSIDE RECORDS SUMMARY | 2025-04-04 08:30 | XMS_ITS | Continuity of Care Document ---
Author Name [facility] Organization [facility] Care Team Providers Care Facility Examiner Name Role Phone [facility] Unavailable Unavailable Problems Combined list of problems [...] Inactive Condition NEW ORDER 1 Last CON [id number] CURT MAURICE *MANOLO* OPHTHALMOLOGY CONSULT at [facility] on 27 Jun 2007@[id number] Duty Station/Unit: strabismus URBANO ZHANG [employer]/SIGNATURE ABSENT/PRE-ACTIV E 2yo pt being followed by, Dr. Carolynn King in [place], [place] contact number /fax [phone]. Please approve for evaluation and treatment +for continuity of care. please authorize for a one year period or until . thanks, diagnosis is strabimus. pt has appt [id number] thanks please fax authorization to provider when [...] Condition [employer] 15 Jan 2008@8738 Page 1Personal Data - Privacy Act of 1973 (PL [id number])========= ======NEW ORDER 1 Last CON [id number] CURT MAURICE *MANOLO* OPHTHALMOLOGY CONSULT at [facility] on 15 Jan 2008@665274 Duty Station/Unit: strabismus URBANO ZHANG [employer]/SIGNATURE [...] Reported Comments Source NO OUTPUT FOR NCID [id number] Drug allergy (disorder) active 03/18/2008 [employer] ([facility] Immunizations Combined list of available immunizations from the Department of Defense and Veterans Affairs facilities. 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 Comments Source measles, mumps and rubella virus vaccine 2 2007 Unknown, Provider [id number] Merck (MSD) complet ed measles, mumps and rubella virus vaccine DoD poliovirus vaccine, inactivated 4 2007 Unknown, Provider [id number] 10 Sanofi Pasteur ([facility]) complet ed polioviru s vaccine, inactivat ed DoD diphtheria, tetanus toxoids and acellular pertu is vaccine 5 2007 Unknown, Provider [id number] 20 [place] ([facility]) complet ed diphtheri a, tetanus toxoids and acellular pertussis vaccine DoD varicella virus vaccine 2 2007 Unknown, Provider [id number] 21 Merck ([facility]) complet ed varicella virus vaccine DoD hepatitis A vaccine, pediatric dosage, unspecified formulation 1 2005 Unknown, Provider [id number] 31 [place] ([facility]) complet ed hepatitis A vaccine, pediatric dosage, unspecifi ed formulati on DoD influenza virus vaccine, split virus (incl. purified surface antigen)-reti red CODE 1 2003 Unknown, Provider [id number] 15 Sanofi Pasteur ([facility]) complet ed influenza virus vaccine, split virus (incl. purified surface antigen)- retired CODE DoD diphtheria, tetanus toxoids and acellular pertu is vaccine 1 2003 Unknown, Provider [id number] 20 [place] ([facility]) complet ed diphtheri a, tetanus [...] antigen)-reti red CODE 1 2003 Unknown, Provider [id number] 15 Sanofi Pasteur ([facility]) complet ed influenza virus vaccine, split virus (incl. purified surface antigen)- retired CODE DoD varicella virus vaccine 1 2003 Unknown, Provider [id number] 21 Merck (MSD) complet ed varicella virus vaccine DoD pneumococcal conjugate vaccine, 7 valent 3 2003 Unknown, Provider [id number] Zakia ([facility]) complet ed pneumococ goyo conjugate vaccine, 7 [...] vaccine, 7 valent 2 2002 Unknown, Provider [id number] 100 Phoebe-Zane ([facility]) complet ed pneumococ goyo conjugate vaccine, 7 valent DoD DTaP-hepatiti s B and poliovirus vaccine 2 2002 Unknown, Provider [id number] 110 [facility] DTaP-hepa titis B and polioviru s vaccine DoD Haemophilus influenzae type b vaccine, PRP-OMP conjugate 1 2002 Unknown, Provider [id number] 49 Merck (MSD) complet ed Haemophil us influenza e type b vaccine, PRP-OMP conjugate DoD pneumococcal conjugate vaccine, 7 valent 1 2002 Unknown, Provider [phone] Wycarrol-Zane ([facility]) complet ed pneumococ goyo conjugate vaccine, 7 valent DoD DTaP-hepatiti s B and poliovirus vaccine 1 2002 Unknown, Provider [id number] 110 [employer] ([facility]) complet ed DTaP-hepa titis [...] ADM Date DC Date Status Disposition Source [address] [place] [address] Russel B ([facility]Ped iatrics) OUTPATIENT [id number] 12 month well child MARLA PANDEY 03/16 Released w/o Limitations [address] [place] [address] Russel B [facility]P ediatri cs) [address] [place] [address] [employer] B ([facility]) OUTPATIENT [id number] 1 yr old BRODIE LIZARRAGA A 03/24 Released w/o Limitations [facility] Russel B ([facility]P ediatri cs) [address] [place] [address] Russel B [facility]Ped iatrics) OUTPATIENT [id number] pink eye BRODIE LIZARRAGA A 04/21 Released w/o Limitations [address] [place] [address] Russel B ([facility]P ediatri cs) [address] [place] [address] Russel B [facility]Ped iatrics) TELE CONSULT [id number] needs new referra PHILIP Aleman 03/[address] [place] [address] Russel [facility])(P ediatri cs) [address] [place] [address] [employer] [facility])(Ped iatrics) TELE CONSULT [id number] needs referra l retro to 10 jan [address] for oph[address] Dr. Strong is the provide r PHILIP RICK 03/[address] [place] [address] [employer]el [facility])(P ediatri cs) [address] [place] [address] Russel B [facility]Ped iatrics) OUTPATIENT [id number] pre school JACK Carlos 07/04 Released w/o Limitations [address] [place] [address] [employer]el [facility])(P ediatri cs) [address] [place] [address] [employer] [facility])(Ped iatrics) TELE CONSULT [id number] Referra l PHILIP Crespo 08/[address] [place] [address] Russel B [facility]P ediatri cs) [address] [place] [address] Russel B [facility]) OUTPATIENT [id number] L eye Redness ROCÍO ALEJO 09/19 Released w/o Limitations [address] [place] [address] Russel B [facility]A Care [facility]) [address] [place] [address] [employer] ([facility]) OUTPATIENT [id number] cough/p ossible uti CARMENCITA ZHANG 01/29 Released w/o Limitations [employer] ([facility]P ediatri cs) [facility] [employer] ([facility]rics) TELE CONSULT [id number] [facility] CARMENCITA ZHANG 01/29 [facility] [employer] ([facility]P ediatri cs) [facility] [employer] ([facility]) TELE CONSULT [id number] FEVER LADI SERRANO 01/30 [facility] [employer] ([facility]P ediatri cs) [employer] ([facility]) OUTPATIENT [id number] Problem s going to [facility] per PCM C#593-8 [facility] CARMENCITA ZHANG 02/01 Released w/o Limitations [facility] [employer] ([facility]P ediatri cs) [facility] [employer] ([facility]) TELE CONSULT [id number] Pt needs a stephanie dong appt for that doc on 11sep LADI SERRANO 06/26 [facility] [employer] ([facility]P ediatri cs) [facility] [employer] ([facility]) OUTPATIENT [id number] chest congest /cough/ temp CHRISTIANO CROWE 11/13 Released w/o Limitations [facility] [employer] ([facility]P ediatri cs) [facility] [employer] ([facility]rics) TELE CONSULT [id number] MARVIN Lenz 01/14 [facility] [employer] ([facility]P ediatri cs) [facility] [employer] ([facility]Ped [facility]atrics) OUTPATIENT [id number] [facility] physica l CARMENCITA ZHANG 03/27 Released w/o Limitations [facility] [employer] ([facility]P ediatri cs) [facility] [employer] ([facility]rics) TELE CONSULT [id number] ARMANDO Abdul 11/17 [facility] [employer] ([facility]P ediatri cs) [facility] [employer] ([facility]Ped iatrics) TELE CONSULT [id number] referra saravia JADENAniya VIOLA, NINO 05/[address] [place] [address] Group [employer] [facility])(P ediatri cs) [address] [place] [address] [facility] TELE CONSULT [id number] referra l/anibal i JADENAniya HORTAVICTOR MANUEL, NINO 11/[address] [place] [address] Group [employer] [facility])(P ediatri cs) [address] [place] [address] [employer] [facility])(Ped iatrics) TELE CONSULT [id number] referra saravia JADENAniya VIOLA, NINO 12/15 Referred for Appointment [address] [place] [address] Group [employer] [facility])(P ediatri cs) [address] [place] [address] [employer] [facility])(Ped iatrics) TELE CONSULT [id number] referra ARMANDO Wright 05/[address] [place] [address] Group [employer] [facility])(P ediatri cs) [address] [place] [address] [employer] [facility])(Sco tt Peds Team Jason) TELE CONSULT [id number] Notes Entered by: ROSANA FERNÁNDEZ 29 Mar 2012 1541 ------- ------- ------- ------- -- Referra rani Zhang - [id number] [address] [place] [address] JADENAniya NINO ROD 03/[address] [place] [address] Group [employer] [facility])(S cott Peds Team Jason) [address] [place] [address] [employer] [facility])(Sco tt Peds Team Jason) TELE CONSULT [id number] Notes Entered by: Raj FELICIANO 10 May 2013 1054 ------- ------- ------- ------- -- Stephanie saravia to Dr Pradhan in JERAMY Araya 05/[address] [place] [address] Group [employer]el [facility])(S cott Peds Team Jason) [address] [place] [address] [facility]el [facility])(Sco tt Peds Team Jason) TELE CONSULT [id number] Notes Entered by: TAVO ALCANTARA 01 May 2014 0835 ------- ------- ------- ------- -- Ophthal mology CONSTANCE Montanez 05/[address] [place] [address])([facility] Peds Team [place]) [address] [place] [address])(Sco tt Ped Team Jason) TELE CONSULT [id number] Notes Entered by: LYNSEY ALEXIS 22 May 2015 1002 ------- ------- ------- ------- -- Ophthal molrhetty WILIAN Reed 05/22 Referred for Appointment [address] [place] [address])([facility] Team Jason) [address] [place] [address])([facility]to [facility] Res [place] [place]) TELE CONSULT [id number] Notes Entered by: SERINA WOODALL 20 May 2016 1346 ------- ------- ------- ------- -- STAT Stephanie Jovel (appt May)/Avi yce/618 .593.81 32 ALYSSA WONG 05/[address] [place] [address])([facility] Fam Res [place] [place]) [address] [place] [address])(Vto [facility] Fam Res [place] [place]) TELE CONSULT [id number] Notes Entered by: TAMMY VARGAS 24 May 2016 0915 ------- ------- ------- ------- -- Ref discrep gissel -appt tomorro w at 1500/Avi yce/618 .593.81 32 ALYSSA Rivas 05/[address] [place] [address])([facility] Fam Res [place] [place]) [address] [place] [address])([facility] Res [facility]m [place]) TELE CONSULT [id number] Notes Entered by: BRANDI TEE 24 May 2016 0953 ------- ------- ------- ------- -- Updated Referra rani/ Josh / [phone] MARVINBRETStef Gallo 05/[address] [place] [address])(S [facility] Res [facility]m [place]) [address] [place] [address])([facility] Res Green) TELE CONSULT [id number] Notes Entered by: SERINA WOODALL 19 May 2017 1439 ------- ------- ------- ------- -- STAT Referra l Renewal Request (appt May)/Avi bone/618 .593.81 32 WONGBRETStef Gallo 05/[address] [place] [address])(S [facility] Res [facility]m [place]) [address] [place] [address])([facility] [place]) TELE CONSULT [id number] Notes Entered by: DANE PIPER 30 Oct 2017 1240 ------- ------- ------- ------- -- Network Results -OPHTHA LMOLOGY 05/25/17 MILIND PIERCE 10/[address] [place] [address])(S [facility] Res [facility]m [place]) [address] [place] [address])(Sco tt [facility] [place]) TELE CONSULT [id number] Notes Entered by: MARY JANE DE 27 May 2019 1512 ------- ------- ------- ------- -- Referra l request /jeannie / eld MARVIN ALYSSA M 05/27 Other Not Elsewhere Classified [address] [place] [address])([facility] [place]) Procedures Combined list of: 1) Procedures from Department of Veterans Affairs facilities going back up to thelast 18 months, not all VA non-surgical procedures are included; 2) All procedures from the Department of Defense facilities. Procedure Procedure Type Code Date Perfomer Comments [facility] e IMMUNIZATION ADMINISTRATION (INCLUDES PERCUTANEOUS, INTRADERMAL, [...] DOSAGE-2 DOSE SCHEDULE, FOR INTRAMUSCULAR USE 03/27/2008 [facility] HEPATITIS A VACCINE (HEPA), PEDIATRIC/ADOLESCENT DOSAGE-2 DOSE SCHEDULE, FOR INTRAMUSCULAR USE 07/04/2006 DoD DIPHTHERIA, TETANUS TOXOIDS, ACELLULAR PERTUSSIS VACCINE, HEPATITIS B, AND INACTIVATED POLIOVIRUS VACCINE (CHTT-UZOT-CCX), FOR INTRAMUSCULAR USE 2003 [facility] DIPHTHERIA, TETANUS TOXOIDS, AND ACELLULAR PERTUSSIS VACCINE (DTAP), WHEN ADMINISTERED TO INDIVIDUALS YOUNGER THAN 7 YEARS, FOR INTRAMUSCULAR USE 2003 [facility] Non-Physician Phone Call To Patient/Provider Brief (5-10min) Non-Physician Phone Call To Patient/Provider Brief (5-10min) [id number] 05/19/2017 ALYSSA WONG DoD Non-Physician Phone Call To Pt/Provider Intermed (11-20 min) Non-Physician Phone Call To Pt/Provider Intermed (11-20 min) [id number] 05/25/2016 ALYSSA WONG Non-Physician Phone Call To Patient/Provider Brief (5-10min) Non-Physician Phone Call To Patient/Provider Brief (5-10min) [id number] 05/24/2016 ALYSSA WONG DoD Non-Physician Phone Call To Patient/Provider Brief (5-10min) Non-Physician Phone Call To Patient/Provider Brief (5-10min) [id number] 05/20/2016 ALYSSA WONG DoD Non-Physician Phone Call To Patient/Provider Brief (5-10min) Non-Physician Phone Call To Patient/Provider Brief (5-10min) [id number] 05/22/2015 WILIAN ALEXIS [facility] Non-Physician Phone Call To Patient/Provider Brief (5-10min) Non-Physician Phone Call To Patient/Provider Brief (5-10min) [id number] 05/01/2014 CONSTANCE ALCANTARA [facility] Non-Physician Phone Call To Pt/Provider Intermed (11-20 min) Non-Physician Phone Call To Pt/Provider Intermed (11-20 min) [id number] 05/10/2013 JERAMY FERRO [facility] Non-Physician Phone Call To Patient/Provider Brief (5-10min) Non-Physician Phone Call To Patient/Provider Brief (5-10min) [id number] 04/03/2012 NINO GARCIA [facility] Hep A Vac Ped/Adol Dosage (Intramusc Use) 2 Dose Schedule Hep A Vac Ped/Adol Dosage (Intramusc Use) 2 Dose Schedule 00402 03/27/2008 [facility] Vaccines Viral Varicella (Active) Vaccines Viral Varicella (Active) 67269 03/27/2008 [facility] Vaccines Viral Measles, Mumps and Rubella, Live Vaccines Viral Measles, Mumps and Rubella, Live 01582 03/27/2008 [facility] Vaccines Viral Polio, Inactivated (Salk) Vaccines Viral Polio, Inactivated (Salk) 79797 03/27/2008 [facility] DTaP Vaccine DTaP Vaccine 04083 03/27/2008 [facility] Immunization Administration One Vaccine Immunization Administration One Vaccine 44959 03/27/2008 [facility] Immunization Administration Each Additional Vaccine 03/27/2008 [facility] Immunization Administration One Vaccine Immunization Administration One Vaccine 44906 07/04/2006 JACK ZHAO [facility] Hep A Vac Ped/Adol Dosage (Intramusc Use) 2 Dose Schedule Hep A Vac Ped/Adol Dosage (Intramusc Use) 2 Dose Schedule 81553 07/04/2006 JACK ZHAO [facility] Social History Combined list of available smoking, tobacco, and other social history from Department of Defense and Veterans Affairs facilities. Social History Type Response Date Comment Sour e This section is an empty social history section. [facility]
--- OUTSIDE RECORDS SUMMARY | 2025-04-04 08:30 | XMS_ITS | Clinical Summary ---
Author Organization [facility] Address [address] [place] [address] Care Team Providers Care Washer Meat Name Role Phone Emilia Han MD Primary Care Provider + Elias Vasques MD Unavailable [phone] Allergies No known active allergies Medications [...] (06/04/2021): Added automatically from request for surgery [id number] Syncope 11/18/2019 Assessment & Plan (11/18/2019 3:57 PM GARNETT FEEDER): Larissa Maurice is a 14 y.o. female [...] - Pain control - Cyclobenzaprine q8h PRN; Lawn q6hr PRN - PT evaluate and treat [...] TW Conv) Diabetes Mother Diabetes Other Diabetes [facility] - --gestational in mom (Added [...] on file Legal Sex Female 12:52 PM GARNETT FEEDER Gender Identity Female 11/24/2023 3:03 PM GARNETT FEEDER Sexual Orientation Bisexual 11/24/2023 3: 03 PM GARNETT FEEDER Obstetrics History Last Filed Vital Signs Vital Sign Reading Time Taken Comments Blood Pressure 130/84 10/04/2024 11:10 AM GARNETT FEEDER Pulse 81 10/04/2024 11:10 AM GARNETT FEEDER Temperature 36.1 C (97 F) 10/04/2024 10:47 AM GARNETT FEEDER Respiratory Rate 25 10/04/2024 11:10 AM GARNETT FEEDER Oxygen Saturation 94% 10/04/2024 11:10 AM GARNETT FEEDER Inhaled Oxygen Concentration - - Weight 63.5 kg (140 lb) 10/04/2024 8:08 AM GARNETT FEEDER Height 167.6 cm (5' 6) 10/04/2024 8:08 AM GARNETT FEEDER Body Mass Index 22.6 10/04/2024 8:08 AM GARNETT FEEDER Plan of Treatment Health Maintenance Due Date [...] 08/24, 05/16/2014 Medical Devices Explanted Type Area High Speed Printer Operator Device Identifier Shelf Expiration Date Model / Serial / Lot [employer]/Jacob o [id number] 4.5mm 50mm Low Profile Internal Capture Femur Screw Bone Trigen - [id number] Implanted:Qty: 1 on 04/28/2020 by Andres Maharaj MD at [facility] Explanted:Qty: 1 on 09/13/2021 by Andres Maharaj MD Screw Left: Femur [employer]/O rtho 05/14/2029 [id number] / / Trigen Adolescent Allison Implanted:Qty: 1 on 11/11/2019 by Andres Maharaj MD at [facility] Explanted:Qty: 1 on 09/13/2021 by Andres Maharaj MD Right: Femur [employer] 10/23/2024 [id number] / / [id number] Description:[id number]-6AL-4V [employer]/Orth o [id number] 4.5mm 45mm Low Profile Internal Capture Femur Screw Bone Trigen - [id number] Implanted:Qty: 1 on 11/11/2019 by Andres Maharaj MD at [facility] Explanted:Qty: 1 on 09/13/2021 by Andres Maharaj MD Right: Femur [employer]/O rtho 04/22/2024 [id number] / / [id number] [employer]/Orth o [id number] 4.5mm 42.5mm Low Profile Internal Capture Femur Screw Bone Trigen - [id number] Implanted:Qty: 1 on 11/11/2019 by Andres Maharaj MD at [facility] Explanted:Qty: 1 on 09/13/2021 by Andres Maharaj MD Right: Femur [employer]/O rtho 03/31/2029 [id number] / / [id number] [employer]/Orth o [id number] 4.5mm 52.5mm Low Profile Internal Capture Femur Screw Bone Trigen - [id number] Implanted:Qty: 1 on 11/11/2019 by Andres Maharaj MD at [facility] Explanted:Qty: 1 on 09/13/2021 by Andres Maharaj MD Right: Femur [employer]tho 12/21/2022 [id number] / / [id number] [employer]/Orth o [id number] Trigen 8.5mm 38cm Antegrade Femur Left 130d Nail Intramedullary - [id number] Implanted:Qty: 1 on 04/28/2020 by Andres Maharaj MD at [facility] Explanted:Qty: 1 on 09/13/2021 by Andres Maharaj MD Left: Femur [employer]/O rtho 05/18/2027 [id number] / / [employer]/Orth o [id number] 4.5mm 42.5mm Low Profile Internal Capture Femur Screw Bone Trigen - [id number] Implanted:Qty: 1 on 04/28/2020 by Andres Maharaj MD at [facility] Explanted:Qty: 1 on 09/13/2021 by Andres Maharaj MD Left: Femur [employer]/O rtho 06/01/2029 [id number] / / Description:Pro[place] [address] [employer] [facility] CLAIM[place] [email or web address] [place] [employer] [address] [place] [address] CLAIMS [place] [facility] CLAIMS Advance Directives For more information, please contact: [phone] Documents on File Type Date Recorded 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 ADVANCE DIRECTIVE 09/13/2021 2:40 PM * Full Code (Latest Code Status on File) Date Activated Date Inactivated Comments 04/28/2020 5:03 PM 04/29/2020 5:07 PM * Full Code Date Activated Date Inactivated Comments 11/18/2019 2:57 PM 11/19/2019 6:22 PM * Full Code Date Activated Date Inactivated Comments 11/11/2019 2:47 PM 11/12/2019 6:23 PM Care Teams Washer Meat Relationship Specialty Start Date End Date Emilia Han MD [address] [place] [address] PCP - General 05/01/17 Elias Vasques MD [address] [facility] [address] [place] [address] Surgeon Orthopedic Surgery 11/18/19
--- OUTSIDE RECORDS SUMMARY | 2025-04-04 08:30 | XMS_ITS | Referral Summary ---
Author Organization [facility] Address [address] [place] [address] Care Team Providers Care Scarifier Operator Name Role Phone Emilia Han MD Primary Care Provider + Elias Vasques MD Unavailable [phone] Allergies No known active allergies Medications [...] (06/04/2021): Added automatically from request for surgery [id number] Syncope 11/18/2019 Assessment & Plan (11/18/2019 3:57 PM TEXTILE EXAMINER): Larissa Maurice is a 14 y.o. female [...] - Pain control - Cyclobenzaprine q8h PRN; Lottie q6hr PRN - PT evaluate and treat [...] on file Legal Sex Female 12:52 PM TEXTILE EXAMINER Gender Identity Female 11/24/2023 3:03 PM TEXTILE EXAMINER Sexual Orientation Bisexual 11/24/2023 3: 03 PM TEXTILE EXAMINER Last Filed Vital Signs Vital Sign Reading Time Taken Comments Blood Pressure 130/84 10/04/2024 11:10 AM TEXTILE EXAMINER Pulse 81 10/04/2024 11:10 AM TEXTILE EXAMINER Temperature 36.1 C (97 F) 10/04/2024 10:47 AM TEXTILE EXAMINER Respiratory Rate 25 10/04/2024 11:10 AM TEXTILE EXAMINER Oxygen Saturation 94% 10/04/2024 11:10 AM TEXTILE EXAMINER Inhaled Oxygen Concentration - - Weight 63.5 kg (140 lb) 10/04/2024 8:08 AM TEXTILE EXAMINER Height 167.6 cm (5' 6) 10/04/2024 8:08 AM TEXTILE EXAMINER Body Mass Index 22.6 10/04/2024 8:08 AM TEXTILE EXAMINER Plan of Treatment Not on file Medical Devices Explanted Type Area [employer] Associate Device Identifier Shelf Expiration Date Model / Serial / Lot [employer]/Orth o [id number] 4.5mm 50mm Low Profile Internal Capture Femur Screw Bone Trigen - [id number] Implanted:Qty: 1 on 04/28/2020 by Andres Maharaj MD at [facility] Explanted:Qty: 1 on 09/13/2021 by Andres Maharaj MD Screw Left: Femur [employer]/O rtho 05/14/2029 [id number] / / Trigen Adolescent Allison Implanted:Qty: 1 on 11/11/2019 by Andres Maharaj MD at [facility] Explanted:Qty: 1 on 09/13/2021 by Andres Maharaj MD Right: Femur [employer] 10/23/2024 [id number] / / [id number] Description:[id number]-6AL-4V [employer]/Orth o [id number] 4.5mm 45mm Low Profile Internal Capture Femur Screw Bone Trigen - [id number] Implanted:Qty: 1 on 11/11/2019 by Andres Maharaj MD at [facility] Explanted:Qty: 1 on 09/13/2021 by Andres Maharaj MD Right: Femur [employer]/O rtho 04/22/2024 [id number] / / [id number] [employer]/Orth o [id number] 4.5mm 42.5mm Low Profile Internal Capture Femur Screw Bone Trigen - [id number] Implanted:Qty: 1 on 11/11/2019 by Andres Maharaj MD at [facility] Explanted:Qty: 1 on 09/13/2021 by Andres Maharaj MD Right: Femur [employer]/O rtho 03/31/2029 [id number] / / [id number] [employer]/Orth o [id number] 4.5mm 52.5mm Low Profile Internal Capture Femur Screw Bone Trigen - [id number] Implanted:Qty: 1 on 11/11/2019 by Andres Maharaj MD at [facility] Explanted:Qty: 1 on 09/13/2021 by Andres Maharaj MD Right: Femur [employer]/O rtho 12/21/2022 [id number] / / [id number] [employer]/Orth o [id number] Trigen 8.5mm 38cm Antegrade Femur Left 130d Nail Intramedullary - [id number] Implanted:Qty: 1 on 04/28/2020 by Andres Maharaj MD at [facility] Explanted:Qty: 1 on 09/13/2021 by Andres Maharaj MD Left: Femur [employer]/O rtho 05/18/2027 [id number] / / [employer]/Orth o [id number] 4.5mm 42.5mm Low Profile Internal Capture Femur Screw Bone Trigen - [id number] Implanted:Qty: 1 on 04/28/2020 by Andres Maharaj MD at [facility] Explanted:Qty: 1 on 09/13/2021 by Andres Maharaj MD Left: Femur [employer]/O rtho 06/01/2029 [id number] / / Description:[place] [address] [employer] [place] [facility] Address: [address] [place] [address] [employer] [place] [facility] Address: [facility] [address] [place] [address] [employer] [place] [facility] Advance Directives For more information, please contact: [phone] Documents on File Type Date Recorded 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 [address] PCP - General 05/01/17 Elias Vasques MD [address] [facility] [address] [place] [address] Surgeon Orthopedic Surgery 11/18/19
--- OUTSIDE RECORDS SUMMARY | 2025-04-04 08:30 | XMS_ITS | Continuity of Care Document ---
Author Organization [facility] Address [address] [place] [address] Phone Care Team Providers Care Medical Or Surgical Instrument Maker Name Role Phone Christine Pradhan Unavailable Unavailable [...] Copied on Encounter Office/outpat ient Visit, [facility], [address], [place], [place], [id number], [place] tel:[phone] [facility] No Information 0 Carolynn King. [address] , [address], [place], [address], [place]. tel:[phone] Office/outpat ient Visit, [facility], [address] [place] [address] [address], [place], [place], [id number], [place] tel:[phone] [facility] No Information Mar-0 9-201 0 Carolynn Aparicion. [address] , [address], [place], [place], [facility], . tel:[phone] [facility], [address] [place] [address] [address], [place], [place], [id number], [place] tel:[phone] [facility] No Information May-0 6-200 9 Carolynn AparicionRoxane [address] , [address], [place], [place], [facility], . tel:[phone] Office/outpat ient Visit, [facility], [address] [place] [address] [address], [place], [place], [id number], [place] tel:[phone] [facility] No Information Fe-1 0-200 9 Carolynn AparicionRoxane [address] , [address], [place], [facility], [place]. tel:[phone] [facility], [address] [place] [address] [address], [place], [place], [id number], [place] tel:[phone] [facility] No Information Apr-2 5-200 8 Carolynn Sneed [address] , [address], [place], [facility], [place]. tel:[phone] Office/outpat ient Visit, [facility], [address] [place] [address] [address], [place], [place], [id number], [place] tel:[phone] [facility] No Information Dec-2 5-200 8 Carolynn AparicionRoxane [address] , [address], [place], [facility], [place]. tel:[phone] [facility], [address], [place], [place], [address], [place] tel:[phone] [facility] No Information 7 Pradhan Christine. [address], [place], [facility], [place]. tel:[phone] [facility], [address], [place], [place], [id number], [place] tel:[phone] [facility] No Information 7 Pradhan Christine. [address], [place], [facility], [place]. tel:[phone] [facility], [address], [place], [place], [address], [place] tel:[phone] [facility] No Information 7 Pradhan Christine. [address], [place], [facility], [place]. tel:[phone] [facility], [address], [place], [place], [address], [place] tel:[phone] [facility] No Information 7 Pradhan Christine. [address], [place], [facility], [place]. tel:[phone] [facility], [address], [place], [place], [address], [place] tel:[phone] [facility] No Information 7 Pradhan Christine. [address], [place], [facility], [place]. tel:[phone] [facility], [address], [place], [place], [id number], [place] tel:[phone] [facility] No Information Carolynn Sneed [address] , [address], [place], [address], [place]. tel:[phone] Office/outpat ient Visit, [facility], [address], [place], [place], [id number], [place] tel:[phone] [facility] No Information Carolynn King. [address] [facility] [address] [address] , [address], [place], [address], [place]. tel:[phone] Family History Family Member Type Diagnosis Age At Onset No Information Payers Payer name Insurance type Covered alliance party ID Authoriza tion(s) No Information Social [...]
[2025-04-04] MEDS: PANTOPRAZOLE SODIUM IV 40 MG VIAL IV PUSH (08:32)
[2025-04-04] MEDS: FAMOTIDINE 20 MG/2 ML VIAL IV PUSH (08:33)
[2025-04-04] MEDS: BELLADONNA ALK/PHENOB ELIX 10 ML, MAG HYDROX/ALUMINUM HYD/SIMETH 30 ML, LIDOCAINE 2% VI... PO (08:33)
[2025-04-04] MEDS: SODIUM CHLORIDE 0.9% IV 1,000 ML 999 ML (08:33)
[2025-04-04 08:41] LABS: Appearance Urine Cloudy (Clear); Color Urine Yellow (Yellow); Protein Urine 2+ mg/dL (Negative); Specific Grav Ur >= 1.030 (1.001-1.035)
[2025-04-04 08:42] LABS: Add Urine Microscopic? YES; Bacteria Urine None Seen /hpf; Bilirubin Urine Negative (Negative); Blood Urine Trace-Lysed (Negative); Glucose Urine UA Negative (Negative); Hyaline Casts Urine Present /lpf; Ketones Urine Trace mg/dL (Negative); Leukocyte Esterase Ur Negative LEU/UL (Negative); Mucus Urine Present /lpf; Need Manual Microscopic Reviewed; Nitrate Urine Negative (Negative); Squamous Epithelial Cell Urine Occasional /hpf (Few); Urobilinogen Urine 0.2 mg/dL (<2.0); WBC Urine 21-50 /hpf (0-3)
[2025-04-04 08:57] LABS: Alanine Aminotransferase 46 U/L (6-35); Albumin Level 5.2 g/dL (3.5-5.1); Alkaline Phosphatase 120 U/L (38-126); Anion Gap 17 mmol/L (4-12); Aspartate Amino Transferase 44 U/L (14-36); Bilirubin,Total 0.8 mg/dL (0.2-1.3); Blood Urea Nitrogen 4 mg/dL (7-17); Calcium 9.8 mg/dL (8.4-10.2); Carbon Dioxide 19 mmol/L (22-30); Chloride 101 mmol/L (98-107); Estimated CRCL calculation 115 ml/min; Estimated Glomerular Filt Rate > 60; Glucose 165 mg/dL (65-110); Lipase 63 U/L (23-300); Potassium 3.7 mmol/L (3.4-5.0); Sodium 137 mmol/L (137-145); Total Protein 8.4 g/dL (6.3-8.2)
[2025-04-04 09:11] LABS: BEDSIDEPREGUCG Negative (Negative)
[2025-04-04] MEDS: HALOPERIDOL LACTATE 5 MG/ML VIAL IM (09:52)
[2025-04-04 09:54] VITALS: BP 147/92; PULSE 98; RESP 19; TEMP 36.6; O2SAT 100
[2025-04-04 10:03] VITALS: BP 134/114; PULSE 98; RESP 16; TEMP 36.8; O2SAT 100
[2025-04-04] MEDS: CEPHALEXIN 500 MG CAPSULE PO (10:53)
[2025-04-04] MEDS: TAMSULOSIN HCL 0.4 MG CAPSULE PO (10:53)
[2025-04-04 11:00] VITALS: BP 138/88; PULSE 86; RESP 16; TEMP 36.6; O2SAT 100
== END 2025-04-04 11:17 | disposition home or self-care (01) ==
PROVIDERS: Emergency Provider Emergency Medicine; PCP Pediatrics
DX: N20.1 Calculus of ureter (principal); R11.2 Nausea with vomiting, unspecified; F41.9 Anxiety disorder, unspecified; F90.9 Attention-deficit hyperactivity disorder, unspecified type; F31.9 Bipolar disorder, unspecified; F17.290 Nicotine dependence, other tobacco product, uncomplicated
CPT/HCPCS: 36415; 74176; 80053; 81001; 81025; 83690; 87086; 96372; 96374; 96375; 99284; A9270; J1630; J2470; J7030

== ENCOUNTER 2025-07-03 16:39 | Emergency (ER) | payer BC, SELFPAY ==
[2025-07-03 16:48] VITALS: BP 140/92; PULSE 127; RESP 18; TEMP 36.7; O2SAT 98
--- NOTE | 2025-07-03 17:20 | ED.NAVMDI ---
HPI - Nausea/Vomiting/Diarrhea General Chief complaint: Nausea/Vomiting/Diarrhea Stated complaint: Vomiting/Fever Time Seen by Provider: 07/03/25 17:00 20-year-old female Presents Express Care complaining of nausea, vomiting, diarrhea for 5 days. Patient said symptoms started as upper respiratory symptoms last week with cough, congestion, sore throat. Then over the weekend the patient developed diarrhea along with nausea and vomiting. Patient says she would vomit at least twice a day but able to keep food and water down in between each episode. Patient says the diarrhea and upper respiratory symptoms have resolved however today she had worsening nausea and vomiting had 3 episodes of emesis and has been able to keep a.m. today. Patient reports having intermittent fevers. Patient denies any abdominal pain, body aches, chills. Patient last vomited approximately 3 hours ago. Patient denies any blood or mucus in stools. Patient has not tried any [id number] for relief. Patient denies recent travel outside the country. Patient denies any chance of , she denies any urinary symptoms. Source: patient and RN notes reviewed Mode of arrival: ambulatory Limitations: no limitations Related Data Home Medications ?Medication ?Instructions ?Recorded ?Confirmed ?Last Taken ?Type escitalopram oxalate 20 mg tablet 20 mg PO DAILY 11/13/22 02/21/25 02/20/25 History medroxyprogesterone 150 mg/mL 150 mg IM [id number] 11/13/22 02/21/25 01/14/25 History intramuscular suspension cariprazine 4.5 mg capsule 4.5 mg PO DAILY 02/21/25 02/21/25 02/20/25 History (Shahnaz) lamotrigine 200 mg tablet,extended 200 mg PO DAILY 02/21/25 02/21/25 02/20/25 History release 24 hr methylphenidate HCl 100 mg 100 mg PO HS 02/21/25 02/21/25 02/20/25 History capsule,delayed release,ext release sprinkle (Jornay PM) ropinirole 1 mg tablet 1 mg PO DAILY 02/21/25 02/21/25 02/20/25 History Allergies Allergy/AdvReac Type Severity Reaction Status Date / Time grass pollen Allergy Mild Itching Verified 07/03/25 17:09 weed pollen Allergy Mild Itching Verified 07/03/25 17:09 Review of Systems Review of Systems: CONSTITUTIONAL: Positive fevers. Negative for chills, body aches, or sweats. EYES: Denies visual changes, redness, or discharge. ENT: Denies rhinorrhea, congestion, sore throat, or otalgia. CARDIOVASCULAR: Denies chest pain, palpitations, or edema. RESPIRATORY: Denies cough or dyspnea. GASTROINTESTINAL: Denies abdominal pain, diarrhea, vomiting blood, coffee-ground emesis, bloody stools, hematochezia. Positive for nausea, vomiting. GENITOURINARY: Denies dysuria or hematuria. SKIN: Denies rash or itching. MUSCULOSKELETAL: Denies back pain, joint pain, or myalgia. NEUROLOGIC: Denies headache, numbness, or weakness. PSYCHIATRIC: Denies anxiety or depression. All other systems reviewed are negative, except as documented in HPI. [facility] Past Medical History Medical History Gastritis Nausea Nausea and vomiting in adult Anxiety Attention deficit hyperactivity disorder Bipolar disorder Fatty infiltration of liver noted on CT 02/20/2025 Surgical History Surgical History History of strabismus surgery History of orthopedic surgery bilateral femur surgery for what sounds like femoral anteversion History of arthroscopy of both knees History of laparoscopic appendectomy (10/2022) Social History Social History Social History: Surrogate medical decision maker: Iris Rivera, mother. Code status: Full code. Smoking status: Current every day smoker Tobacco type: e-cigarettes/vaping Smokeless tobacco user: dissolvable tobacco Second hand tobacco smoke exposure: No Additional smoking assessment comments: vape Alcohol intake: current Drinks per week: 4 Alcohol use details: Social alcohol use in moderation. Substance use: never Substance use type: marijuana Do You Feel Safe in your Home?: Yes Lack of Transportation: No Lack of Food: Never True Current Housing: I Have Housing Concerned About Future Housing: No Difficulty Paying Gas/Electric Bills: No Difficulty Paying for Meds: No Currently Unemployed: No Education: Bachelor's Degree Difficulty w/ Childcare or Family Care: No Additional living arrangements comments: Lives with mother in [place]. 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 Spiritual care concerns: No Exam Narrative: GENERAL: This is a well-nourished, well-developed adult, in no apparent distress. They are non ill-appearing, nontoxic appearing. HEAD: normocephalic, atraumatic. EYES: Sclera clear/white. Vision is grossly intact. Conjunctiva normal bilaterally. Extraocular movements intact. EARS: External ears normal, auditory canals are clear without redness or swelling bilaterally. TMs are normal. Hearing grossly intact. NOSE: External nose normal. Nasal turbinates without redness or swelling. No rhinorrhea or exudate. THROAT: Mucous membranes moist. Posterior pharynx injected. No exudate or swelling. Uvula midline. NECK: Normal range of motion. Neck supple, nontender without cervical lymphadenopathy, masses, or thyromegaly. CARDIOVASCULAR: Tachycardic rate and tachycardic rhythm, no clicks, gallops, murmurs, or rubs. RESPIRATORY: Respiratory rate normal, respiratory effort nonlabored, no respiratory distress. Lung sounds are clear to auscultation. Lung sounds equal bilaterally. No adventitious lung sounds. GASTROINTESTINAL: Abdomen soft, flat, non-tender, nondistended. Bowel sounds are active. No hepato-splenomegaly, or palpable masses. No guarding or rigidity. No rebound tenderness. SKIN: warm, Dry, intact with no suspicious lesions or rash, good texture and turgor. NEURO: awake, alert, and oriented to person, place and time. There were no obvious focal neurologic abnormalities. Trim ring to hands present when patient fully extends arms out. EXTREMITIES: No joint tenderness, effusion, or edema noted. BACK: Nontender without deformity. No CVA tenderness. Course Course Emergency Course: Portions of this record may have been created with voice recognition software Level of Care: Express Care Visit Vital Signs Vital signs: Vital Signs Temperature 98.0 F 07/03/25 16:48 Pulse Rate 127 H 07/03/25 16:48 Respiratory Rate 18 07/03/25 16:48 Blood Pressure 140/92 H 07/03/25 16:48 Pulse Oximetry 98 07/03/25 16:48 Oxygen Delivery Room Air 07/03/25 16:48 Temperature 98.0 F 07/03/25 16:48 Pulse Rate 114 H 07/03/25 17:53 Respiratory Rate 20 07/03/25 17:53 Blood Pressure 150/96 H 07/03/25 17:53 Pulse Oximetry 100 07/03/25 17:53 Oxygen Delivery Room Air 07/03/25 17:53 Transfer Transfered to: [facility] Transportation: Other (Private vehicle) Transfer rationale: Patient requires high level care, nausea, vomiting him alcohol withdrawals. Accepting physician: Dr. Tian MDM - Nausea/Vomiting/Diarrhea MDM Narrative Medical decision making narrative: Patient likely has a viral gastroenteritis. No peritoneal findings on exam. No abdominal pain. Patient is tachycardic however has moist mucous membrane. Patient may be slightly tachycardic. Patient given a dose of Zofran hearing will p.o. challenge her. Strep test negative. Throat culture pending. After patient received doses Zofran patient reports feeling very nauseous. When I went to re-evaluate the patient father then admitted at the patient has a history of alcohol abuse previous hospital records show she was in the ER back in the summer for gastritis from alcohol use. She said she stopped drinking however she admits over the last 3 weeks he has been drinking which she says is double shooters of fireball the last 3 weeks stating she is drinking about 3-4 of them a day. Patient's last drink was yesterday she states. Patient denies any headaches, anxiousness, reports tremors and nausea and vomiting. Given patient's symptoms, it is recommend the patient seek a higher level care and proceed immediately to the emergency department. Patient is agreeable to go to [facility] ER. Called over to [facility] ER and spoke to Dr. Tian who is aware this patient accepted the patient for transfer. Patient advised to remain NPO and proceed immediately to the ER. Father states he we will take the patient be of a private vehicle the hospital. Differential Diagnosis Differential diagnosis: Likely traveler's diarrhea, food poisoning, gastroenteritis, dehydration and other (Viral illness, alcohol withdrawals.) Lab Data Labs: Lab Results 07/03/25 Range/Units 17:31 POC Grp A Strep Screen Negative (Negative) Discharge Plan Discharge Clinical Impression: Alcohol withdrawal, Nausea & vomiting Patient Disposition: Acute Care Hospital Condition: Stable Patient Language: [place] Prescriptions: No Action medroxyprogesterone 150 mg/mL suspension 150 mg IM [id number] escitalopram oxalate 20 mg tablet 20 mg PO DAILY ropinirole 1 mg tablet 1 mg PO DAILY lamotrigine 200 mg tablet extended release 24hr 200 mg PO DAILY Vraylar 4.5 mg capsule 4.5 mg PO DAILY Jornay PM 100 mg capsule,del rel,ext rel sprink 100 mg PO HS pantoprazole 40 mg Tablet,Delayed Release (Dr/Ec) 40 mg PO QAM Qty: 28 0RF Follow-up/Referrals: Emilia Han MD [Primary Care Provider, Pediatrics] Time of Disposition: 18:00
[2025-07-03] MEDS: ONDANSETRON HCL ODT 4 MG TABLET PO (17:21)
[2025-07-03 17:33] LABS: EDSTREPNEGPOS1 Negative (Negative)
[2025-07-03 17:53] VITALS: BP 150/96; PULSE 114; RESP 20; O2SAT 100
== END 2025-07-03 17:56 | disposition short-term general hospital (02) ==
PROVIDERS: PCP Pediatrics
DX: F10.239 Alcohol dependence with withdrawal, unspecified (principal); R11.2 Nausea with vomiting, unspecified; F17.290 Nicotine dependence, other tobacco product, uncomplicated; F41.9 Anxiety disorder, unspecified; F90.9 Attention-deficit hyperactivity disorder, unspecified type; F31.9 Bipolar disorder, unspecified
CPT/HCPCS: 87081; 87880; 99213; A9270; G0463

== ENCOUNTER 2025-07-03 18:21 | Emergency (ER) | payer BC, SELFPAY ==
--- OUTSIDE RECORDS SUMMARY | 2010-06-08 09:45 | XMS_ITS | Continuity of Care Document ---
Author Organization [facility] Address [address] [place] [address] Phone Care Team Providers Care Perioperative Nurse Name Role Phone Christine Pradhan Unavailable Unavailable Procedures Procedure Date Office/outpatient Visit, Est Office/outpatient Visit, Est Eye Exam & Treatment Refraction Office/outpatient Visit, Est Eye Exam & Treatment Refraction Office/outpatient Visit, Est Post-op Follow-up Visit Post-op Follow-up Visit Post-op Follow-up Visit Revise Two Eye Muscles Post-op Follow-up Visit Eye Exam & Treatment Refraction Office/outpatient Visit, Est Advance Directives Directive Yes / No Effective Date File Name No Information Encounters Encounter Description Practice Location Reason(s) For Visit Diagnoses Date Provider Providers Copied on Encounter Office/outpat ient Visit, [facility], [address], [place], [place], [id number], [place] tel:[phone] [facility] No Information 0 Carolynn King. [address] , [address], [place], [address], [place]. tel:[phone] Office/outpat ient Visit, [facility], [address] [place] [address] [address], [place], [place], [id number], [place] tel:[phone] [facility] No Information Mar-0 9-201 0 Carolynn Aparicion. [address] , [address], [place], [place], [facility], . tel:[phone] [facility], [address] [place] [address] [address], [place], [place], [id number], [place] tel:[phone] [facility] No Information May-0 6-200 9 Carolynn AparicionRoaxne [address], [place], [place], [facility], . tel:[phone] Office/outpat ient Visit, [facility], [address] [place] [address] [address], [place], [place], [id number], [place] tel:[phone] [facility] No Information Fe-1 0-200 9 Carolynn AparicionRoxane [address] , [address], [place], [place], [facility], [place]. tel:[phone] [facility], [address] [place] [address] [address], [place], [place], [id number], [place] tel:[phone] [facility] No Information Apr-2 5-200 8 Carolynn Sneed [address] , [address], [place], [place], [facility], [place]. tel:[phone] Office/outpat ient Visit, [facility], [address] [place] [address] [address], [place], [place], [id number], [place] tel:[phone] [facility] No Information Dec-2 5-200 8 Carolynn AparicionRoxane [address], [place], [place], [facility], [place]. tel:[phone] [facility], [address], [place], [place], [id number], [place] tel:[phone] [facility] No Information 7 Pradhan Christine. [address], [place], [place], [facility], [place]. tel:[phone] [facility], [address], [place], [place], [address], [place] tel:[phone] [facility] No Information 7 Pradhan Christine. [address] , [address], [place], [facility], [place]. tel:[phone] [facility], [address], [place], [place], [address], [place] tel:[phone] [facility] No Information 7 Pradhan Christine. [address] , [address], [place], [facility], [place]. tel:[phone] [facility], [address], [place], [place], [address], [place] tel:[phone] [facility] No Information 7 Pradhan Christine. [address] , [address], [place], [facility], [place]. tel:[phone] [facility], [address], [place], [place], [address], [place] tel:[phone] [facility] No Information 7 Pradhan Christine. [address] , [address], [place], [facility], [place]. tel:[phone] [facility], [address], [place], [place], [id number], [place] tel:[phone] [facility] No Information Carolynn Sneed [address] , [address], [place], [address], [place]. tel:[phone] Office/outpat ient Visit, [facility], [address], [place], [place], [id number], [place] tel:[phone] [facility] No Information Carolynn King. [address] , [address], [place], [address], [place]. tel:[phone] Family History Family Member Type Diagnosis Age At Onset No Information Payers Payer name Insurance type Covered green party ID Authoriza tion(s) No Information Social History Type Description Quantity Date Captured Comments Sex Female Smoking Status No Information Chief Complaint And Reason For Visit No Information Reason For Referral Reason For Referral No Information History Of Present Illness Encounter Date Complaint History Of Prese nt Illness No Information Functional Status Date Functional Assessmen t No Information Instructions Date Instruction Additional Infor mation No Information Assessments Type Assessment Date No Information Patient Care Teams Name Effective Dates (start - stop) Status Members No Information
[2025-07-03 18:39] VITALS: BP 147/102; PULSE 109; RESP 16; TEMP 36.6; O2SAT 98
--- NOTE | 2025-07-03 19:51 | ED.NAVMDI ---
HPI - Nausea/Vomiting/Diarrhea General Chief complaint: Nausea/Vomiting/Diarrhea <Marilyn Dove APRN - Last Filed: 07/03/25 19:53> Stated complaint: vomiting/fever <Marilyn Dove APRN - Last Filed: 07/03/25 19:53> Time Seen by Provider: 07/03/25 19:51 <Marilyn Dove APRN - Last Filed: 07/03/25 19:53> Focused HPI: Patient is a 20-year-old female who presents to the ER with concerns for alcohol withdrawal. She reports she has been drinking alcohol on daily basis for approximately 1 year. Patient reports she usually takes approximately 6 shots of hard liquor per day. She reports she has gone through withdrawal in the past in October. Patient endorses a history of bipolar disorder and is medicated, but self medicates with alcohol. She endorses decreased p.o. intake, shaking, hot and cold flashes, and nausea. Patient endorses a history of marijuana use but has not used in approximately 1 month. She denies any urinary symptoms, back pain, or recent fevers. Patient endorses intermittent generalized abdominal pain. GENERAL: Well-appearing, well-nourished, and in no acute distress. HEAD: Normocephalic, atraumatic. CHEST: Clear to auscultation. ?No respiratory distress. HEART: Tachycardia. NEURO: ?Alert and oriented x3. Mild tremor at rest. Patient screened in triage and initial orders placed.? ?Additional care and disposition to be based upon?diagnostic testing and treatment. <aMrilyn Dove APRN - Last Filed: 07/03/25 19:53> Related Data Home medications: Home Medications ?Medication ?Instructions ?Recorded ?Confirmed ?Last Taken ?Type escitalopram oxalate 20 mg tablet 20 mg PO DAILY 11/13/22 02/21/25 02/20/25 History medroxyprogesterone 150 mg/mL 150 mg IM [id number] 11/13/22 02/21/25 01/14/25 History intramuscular suspension cariprazine 4.5 mg capsule 4.5 mg PO DAILY 02/21/25 02/21/25 02/20/25 History (Vraylar) lamotrigine 200 mg tablet,extended 200 mg PO DAILY 02/21/25 02/21/25 02/20/25 History release 24 hr methylphenidate HCl 100 mg 100 mg PO HS 02/21/25 02/21/25 02/20/25 History capsule,delayed release,ext release sprinkle (Jornay PM) ropinirole 1 mg tablet 1 mg PO DAILY 02/21/25 02/21/25 02/20/25 History <Marilyn Dove, CNC LATHE MACHINIST - Last Filed: 07/03/25 19:53> Allergies/Adverse reactions: Allergies Allergy/AdvReac Type Severity Reaction Status Date / Time grass pollen Allergy Mild Itching Verified 07/03/25 17:09 weed pollen Allergy Mild Itching Verified 07/03/25 17:09 <Marilyn Dove CNC LATHE MACHINIST - Last Filed: 07/03/25 19:53> PMFSH Past Medical History Medical History: Medical History Gastritis Nausea Nausea and vomiting in adult Anxiety Attention deficit hyperactivity disorder Bipolar disorder Fatty infiltration of liver noted on CT 02/20/2025 <Marilyn Dove APRN - Last Filed: 07/03/25 19:53> Surgical History Surgical History: Surgical History History of strabismus surgery History of orthopedic surgery bilateral 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 Code status: Full code. Smoking status: Current every day smoker Tobacco type: e-cigarettes/vaping Smokeless tobacco user: dissolvable tobacco Second hand tobacco smoke exposure: No Additional smoking assessment comments: vape Alcohol intake: current Drinks per week: 4 Alcohol use details: Social alcohol use in moderation. Substance use: never Substance use type: marijuana Do You Feel Safe in your Home?: Yes Lack of Transportation: No Lack of Food: Never True Current Housing: I Have Housing Concerned About Future Housing: No Difficulty Paying Gas/Electric Bills: No Difficulty Paying for Meds: No Currently Unemployed: No Education: Bachelor's Degree Difficulty w/ Childcare or Family Care: No Additional living arrangements comments: Lives with mother in [place]. 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 Spiritual care concerns: No <Marilyn Dove, CNC LATHE MACHINIST - Last Filed: 07/03/25 19:53> Exam Narrative: APPEARANCE: No apparent distress. Well-appearing, non tremulous Head: atraumatic. EYES: EOMI, NOSE: Atraumatic NECK: Trachea midline RESPIRATORY: No increased rate of breathing clear to auscultation CARDIOVASCULAR: Mildly tachycardic, no peripheral edema ABDOMINAL: Mild tenderness palpation epigastric region MUSCULOSKELETAl: No obvious deformities NEURO: Alert. Moving 4/4 extremities SKIN:: Warm, dry. Normal color PSYCHIATRIC: Normal affect <Tj Dickerson MD - Last Filed: 07/04/25 02:12> Course Vital Signs Vital signs: Vital Signs Temperature 97.8 F 07/03/25 18:39 Pulse Rate 109 H 07/03/25 18:39 Respiratory Rate 16 07/03/25 18:39 Blood Pressure 147/102 H 07/03/25 18:39 Pulse Oximetry 98 07/03/25 18:39 Oxygen Delivery Room Air 07/03/25 18:39 Temperature 97.8 F 07/03/25 18:39 Pulse Rate 89 07/04/25 02:02 Respiratory Rate 18 07/04/25 02:02 Blood Pressure 128/76 07/04/25 02:02 Pulse Oximetry 99 07/04/25 02:02 Oxygen Delivery Room Air 07/03/25 18:39 <Marilyn Dove, CNC LATHE MACHINIST - Last Filed: 07/03/25 19:53> Vital Signs Temperature 97.8 F 07/03/25 18:39 Pulse Rate 109 H 07/03/25 18:39 Respiratory Rate 16 07/03/25 18:39 Blood Pressure 147/102 H 07/03/25 18:39 Pulse Oximetry 98 07/03/25 18:39 Oxygen Delivery Room Air 07/03/25 18:39 Temperature 97.8 F 07/03/25 18:39 Pulse Rate 89 07/04/25 02:02 Respiratory Rate 18 07/04/25 02:02 Blood Pressure 128/76 07/04/25 02:02 Pulse Oximetry 99 07/04/25 02:02 Oxygen Delivery Room Air 07/03/25 18:39 <Tj Dickerson MD - Last Filed: 07/04/25 02:12> MDM - Nausea/Vomiting/Diarrhea MDM Narrative Medical decision making narrative: -Course: 20-year-old female presenting with nausea and vomiting setting of alcohol use. Last drink was 24 hours ago. CIWA is very low. History and physical are more consistent with alcoholic ketoacidosis and gastritis was the cause of her symptoms. Patient was given D5 LR and antiemetics. Vital signs normalized and she feels much improved. She is able to tolerate p.o.. She will be discharged home with Zofran and Pepcid. She is instructed to stop drinking. -DDX includes but is not limited to: Alcoholic ketoacidosis, alcoholic gastritis, alcohol withdrawal <Tj Dickerson MD - Last Filed: 07/04/25 02:12> Lab Data Result diagrams: 07/03/25 22:53 07/03/25 22:53 <Marilyn Dove APRN - Last Filed: 07/03/25 19:53> Labs: Lab Results 07/03/25 07/03/25 07/03/25 Range/Units 22:48 22:53 23:04 WBC 11.0 H (4.5-10.0) K/mm3 RBC 5.28 (4.2-5.4) M/mm3 Hgb 16.5 H D (12.0-15.0) g/dL Hct 47.5 H (37.0-47.0) % MCV 90.0 (80-100) fl MCH 31.3 (26-34) pg MCHC 34.7 (32-36) g/dl RDW 13.1 (11.5-14.5) % Plt Count 346 (150-375) k/mm3 MPV 8.5 (7.4-10.4) fl Immature Gran % (Auto) 0.4 (0-0.5) % Neut % (Auto) 92.4 H (45.5-73.1) % Lymph % (Auto) 3.3 L (18.3-44.2) % Simpson % (Auto) 3.5 (2.6-8.5) % Eos % (Auto) 0.0 (0-4.4) % Baso % (Auto) 0.4 (0.2-1.2) % Lymph # (Auto) 0.36 L (0.9-3.2) K/mm3 Simpson # (Auto) 0.4 (0.1-0.6) K/mm3 Eos # (Auto) 0.0 (0-0.3) K/mm3 Baso # (Auto) 0.0 (0.0-0.1) K/mm3 Abs Immat Gran (auto) 0.04 H (0.00-0.031) K/mm3 Absolute Neuts (auto) 10.1 H (1.3-6.7) K/mm3 Absolute Nucleated RBC 0.000 (0.0-0.012) K/mm3 Nucleated RBC % 0.0 (0.0-0.2) % Sodium 139 (137-145) mmol/L Potassium 3.8 (3.4-5.0) mmol/L Chloride 98 (98-107) mmol/L Carbon Dioxide 11 L (22-30) mmol/L Anion Gap 30 H (4-12) mmol/L BUN 6 L (7-17) mg/dL Creatinine 0.73 (0.7-1.0) mg/dL Estim Creat Clear Calc 98 ml/min Estimated GFR > 60 (59 - ) Glucose 136 H (65-110) mg/dL POC Capillary Glucose (65-105) mg/dl Calcium 10.5 H (8.4-10.2) mg/dL Phosphorus 4.3 (2.5-4.5) mg/dL Magnesium 2.0 (1.6-2.3) mg/dL Total Bilirubin 1.0 (0.2-1.3) mg/dL AST 54 H (14-36) U/L ALT 34 (6-35) U/L Alkaline Phosphatase 129 H (38-126) U/L Total Protein 9.5 H (6.3-8.2) g/dL Albumin 5.8 H (3.5-5.1) g/dL Lipase 130 (23-300) U/L TSH (Reflex) 3.130 (0.465-4.68) uIU/mL Urine Color Yellow (Yellow) Urine Appearance Cloudy H (Clear) Urine pH 5.5 (5.0-9.0) Ur Specific [place] 1.026 (1.001-1.035) Urine Protein 2+ H (Negative) mg/dL Urine Glucose (UA) Negative (Negative) mg/dL Urine Ketones 4+ H (Negative) mg/dL Ur Blood (Man) 3+ H (Negative) Urine Nitrate Negative (Negative) Urine Bilirubin Negative (Negative) Urine Urobilinogen 1.0 (<2.0) mg/dL Leukocyte Esterase Rfl Trace H (Negative) ARTURO/UL Urine RBC 51-100 H (0-2) /hpf Urine WBC 6-10 H (0-3) /hpf Ur Squamous Epith Cells None seen (Few) /hpf Urine Bacteria None seen /hpf Urine Casts 3-5 POC Urine HCG, Qual Negative (Negative) Urine Opiates Screen Negative (Negative) Urine Methadone Screen Negative (Negative) Ur Barbiturates Screen Negative (Negative) Ur Phencyclidine Scrn Negative (Negative) Ur Amphetamine Screen Negative (Negative) U Benzodiazepines Scrn Negative (Negative) Urine Cocaine Screen Negative (Negative) U Cannabinoids Screen Negative (Negative) Ethyl Alcohol < 10 (<10) mg/dL 07/03/25 Range/Units 23:23 WBC (4.5-10.0) K/mm3 RBC (4.2-5.4) M/mm3 Hgb (12.0-15.0) g/dL Hct (37.0-47.0) % MCV (80-100) fl MCH (26-34) pg MCHC (32-36) g/dl RDW (11.5-14.5) % Plt Count (150-375) k/mm3 MPV (7.4-10.4) fl Immature Gran % (Auto) (0-0.5) % Neut % (Auto) (45.5-73.1) % Lymph % (Auto) (18.3-44.2) % Simpson % (Auto) (2.6-8.5) % Eos % (Auto) (0-4.4) % Baso % (Auto) (0.2-1.2) % Lymph # (Auto) (0.9-3.2) K/mm3 Simpson # (Auto) (0.1-0.6) K/mm3 Eos # (Auto) (0-0.3) K/mm3 Baso # (Auto) (0.0-0.1) K/mm3 Abs Immat Gran (auto) (0.00-0.031) K/mm3 Absolute Neuts (auto) (1.3-6.7) K/mm3 Absolute Nucleated RBC (0.0-0.012) K/mm3 Nucleated RBC % (0.0-0.2) % Sodium (137-145) mmol/L Potassium (3.4-5.0) mmol/L Chloride (98-107) mmol/L Carbon Dioxide (22-30) mmol/L Anion Gap (4-12) mmol/L BUN (7-17) mg/dL Creatinine (0.7-1.0) mg/dL Estim Creat Clear Calc ml/min Estimated GFR (59 - ) Glucose (65-110) mg/dL POC Capillary Glucose 146 H (65-105) mg/dl Calcium (8.4-10.2) mg/dL Phosphorus (2.5-4.5) mg/dL Magnesium (1.6-2.3) mg/dL Total Bilirubin (0.2-1.3) mg/dL AST (14-36) U/L ALT (6-35) U/L Alkaline Phosphatase (38-126) U/L Total Protein (6.3-8.2) g/dL Albumin (3.5-5.1) g/dL Lipase (23-300) U/L TSH (Reflex) (0.465-4.68) uIU/mL Urine Color (Yellow) Urine Appearance (Clear) Urine pH (5.0-9.0) Ur Specific [place] (1.001-1.035) Urine Protein (Negative) mg/dL Urine Glucose (UA) (Negative) mg/dL Urine Ketones (Negative) mg/dL Ur Blood (Man) (Negative) Urine Nitrate (Negative) Urine Bilirubin (Negative) Urine Urobilinogen (<2.0) mg/dL Leukocyte Esterase Rfl (Negative) ARTURO/UL Urine RBC (0-2) /hpf Urine WBC (0-3) /hpf Ur Squamous Epith Cells (Few) /hpf Urine Bacteria /hpf Urine Casts POC Urine HCG, Qual (Negative) Urine Opiates Screen (Negative) Urine Methadone Screen (Negative) Ur Barbiturates Screen (Negative) Ur Phencyclidine Scrn (Negative) Ur Amphetamine Screen (Negative) U Benzodiazepines Scrn (Negative) Urine Cocaine Screen (Negative) U Cannabinoids Screen (Negative) Ethyl Alcohol (<10) mg/dL <Marilyn Cailin Dove, CNC LATHE MACHINIST - Last Filed: 07/03/25 19:53> Lab Results 07/03/25 07/03/25 07/03/25 Range/Units 22:48 22:53 23:04 WBC 11.0 H (4.5-10.0) K/mm3 RBC 5.28 (4.2-5.4) M/mm3 Hgb 16.5 H D (12.0-15.0) g/dL Hct 47.5 H (37.0-47.0) % MCV 90.0 (80-100) fl MCH 31.3 (26-34) pg MCHC 34.7 (32-36) g/dl RDW 13.1 (11.5-14.5) % Plt Count 346 (150-375) k/mm3 MPV 8.5 (7.4-10.4) fl Immature Gran % (Auto) 0.4 (0-0.5) % Neut % (Auto) 92.4 H (45.5-73.1) % Lymph % (Auto) 3.3 L (18.3-44.2) % Simpson % (Auto) 3.5 (2.6-8.5) % Eos % (Auto) 0.0 (0-4.4) % Baso % (Auto) 0.4 (0.2-1.2) % Lymph # (Auto) 0.36 L (0.9-3.2) K/mm3 Simpson # (Auto) 0.4 (0.1-0.6) K/mm3 Eos # (Auto) 0.0 (0-0.3) K/mm3 Baso # (Auto) 0.0 (0.0-0.1) K/mm3 Abs Immat Gran (auto) 0.04 H (0.00-0.031) K/mm3 Absolute Neuts (auto) 10.1 H (1.3-6.7) K/mm3 Absolute Nucleated RBC 0.000 (0.0-0.012) K/mm3 Nucleated RBC % 0.0 (0.0-0.2) % Sodium 139 (137-145) mmol/L Potassium 3.8 (3.4-5.0) mmol/L Chloride 98 (98-107) mmol/L Carbon Dioxide 11 L (22-30) mmol/L Anion Gap 30 H (4-12) mmol/L BUN 6 L (7-17) mg/dL Creatinine 0.73 (0.7-1.0) mg/dL Estim Creat Clear Calc 98 ml/min Estimated GFR > 60 (59 - ) Glucose 136 H (65-110) mg/dL POC Capillary Glucose (65-105) mg/dl Calcium 10.5 H (8.4-10.2) mg/dL Phosphorus 4.3 (2.5-4.5) mg/dL Magnesium 2.0 (1.6-2.3) mg/dL Total Bilirubin 1.0 (0.2-1.3) mg/dL AST 54 H (14-36) U/L ALT 34 (6-35) U/L Alkaline Phosphatase 129 H (38-126) U/L Total Protein 9.5 H (6.3-8.2) g/dL Albumin 5.8 H (3.5-5.1) g/dL Lipase 130 (23-300) U/L TSH (Reflex) 3.130 (0.465-4.68) uIU/mL Urine Color Yellow (Yellow) Urine Appearance Cloudy H (Clear) Urine pH 5.5 (5.0-9.0) Ur Specific [place] 1.026 (1.001-1.035) Urine Protein 2+ H (Negative) mg/dL Urine Glucose (UA) Negative (Negative) mg/dL Urine Ketones 4+ H (Negative) mg/dL Ur Blood (Man) 3+ H (Negative) Urine Nitrate Negative (Negative) Urine Bilirubin Negative (Negative) Urine Urobilinogen 1.0 (<2.0) mg/dL Leukocyte Esterase Rfl Trace H (Negative) ARTURO/UL Urine RBC 51-100 H (0-2) /hpf Urine WBC 6-10 H (0-3) /hpf Ur Squamous Epith Cells None seen (Few) /hpf Urine Bacteria None seen /hpf Urine Casts 3-5 POC Urine HCG, Qual Negative (Negative) Urine Opiates Screen Negative (Negative) Urine Methadone Screen Negative (Negative) Ur Barbiturates Screen Negative (Negative) Ur Phencyclidine Scrn Negative (Negative) Ur Amphetamine Screen Negative (Negative) U Benzodiazepines Scrn Negative (Negative) Urine Cocaine Screen Negative (Negative) U Cannabinoids Screen Negative (Negative) Ethyl Alcohol < 10 (<10) mg/dL 07/03/25 Range/Units 23:23 WBC (4.5-10.0) K/mm3 RBC (4.2-5.4) M/mm3 Hgb (12.0-15.0) g/dL Hct (37.0-47.0) % MCV (80-100) fl MCH (26-34) pg MCHC (32-36) g/dl RDW (11.5-14.5) % Plt Count (150-375) k/mm3 MPV (7.4-10.4) fl Immature Gran % (Auto) (0-0.5) % Neut % (Auto) (45.5-73.1) % Lymph % (Auto) (18.3-44.2) % Simpson % (Auto) (2.6-8.5) % Eos % (Auto) (0-4.4) % Baso % (Auto) (0.2-1.2) % Lymph # (Auto) (0.9-3.2) K/mm3 Simpson # (Auto) (0.1-0.6) K/mm3 Eos # (Auto) (0-0.3) K/mm3 Baso # (Auto) (0.0-0.1) K/mm3 Abs Immat Gran (auto) (0.00-0.031) K/mm3 Absolute Neuts (auto) (1.3-6.7) K/mm3 Absolute Nucleated RBC (0.0-0.012) K/mm3 Nucleated RBC % (0.0-0.2) % Sodium (137-145) mmol/L Potassium (3.4-5.0) mmol/L Chloride (98-107) mmol/L Carbon Dioxide (22-30) mmol/L Anion Gap (4-12) mmol/L BUN (7-17) mg/dL Creatinine (0.7-1.0) mg/dL Estim Creat Clear Calc ml/min Estimated GFR (59 - ) Glucose (65-110) mg/dL POC Capillary Glucose 146 H (65-105) mg/dl Calcium (8.4-10.2) mg/dL Phosphorus (2.5-4.5) mg/dL Magnesium (1.6-2.3) mg/dL Total Bilirubin (0.2-1.3) mg/dL AST (14-36) U/L ALT (6-35) U/L Alkaline Phosphatase (38-126) U/L Total Protein (6.3-8.2) g/dL Albumin (3.5-5.1) g/dL Lipase (23-300) U/L TSH (Reflex) (0.465-4.68) uIU/mL Urine Color (Yellow) Urine Appearance (Clear) Urine pH (5.0-9.0) Ur Specific [place] (1.001-1.035) Urine Protein (Negative) mg/dL Urine Glucose (UA) (Negative) mg/dL Urine Ketones (Negative) mg/dL Ur Blood (Man) (Negative) Urine Nitrate (Negative) Urine Bilirubin (Negative) Urine Urobilinogen (<2.0) mg/dL Leukocyte Esterase Rfl (Negative) ARTURO/UL Urine RBC (0-2) /hpf Urine WBC (0-3) /hpf Ur Squamous Epith Cells (Few) /hpf Urine Bacteria /hpf Urine Casts POC Urine HCG, Qual (Negative) Urine Opiates Screen (Negative) Urine Methadone Screen (Negative) Ur Barbiturates Screen (Negative) Ur Phencyclidine Scrn (Negative) Ur Amphetamine Screen (Negative) U Benzodiazepines Scrn (Negative) Urine Cocaine Screen (Negative) U Cannabinoids Screen (Negative) Ethyl Alcohol (<10) mg/dL <Tj Dickerson MD - Last Filed: 07/04/25 02:12> Discharge Plan Discharge Clinical Impression: Alcoholic ketoacidosis, Alcoholic gastritis <Marilyn Dove APRN - Last Filed: 07/03/25 19:53> Patient Disposition: Home <Marilyn Dove APRN - Last Filed: 07/03/25 19:53> Condition: Stable <Marilyn Dove APRN - Last Filed: 07/03/25 19:53> Instructions: Antibiotic Form, Acute Nausea and Vomiting (ED) <Marilyn Dove APRN - Last Filed: 07/03/25 19:53> Additional Instructions: You were seen emergency department for nausea and vomiting. Please use Zofran for nausea. Use Pepcid twice daily for your abdominal pain. Please seek help for your alcohol addiction develop any new or worsening symptoms return to the ED for re-evaluation. <Marilyn Dove APRN - Last Filed: 07/03/25 19:53> Patient Language: Irish <Marilyn Dove APRN - Last Filed: 07/03/25 19:53> Prescriptions: New famotidine [Pepcid] 20 mg tablet 20 mg PO BID 42 Days Qty: 84 0RF ondansetron 4 mg tablet,disintegrating 4 mg PO Q8H PRN (Reason: nausea and vomiting) Qty: 30 0RF No Action medroxyprogesterone 150 mg/mL suspension 150 mg IM [id number] escitalopram oxalate 20 mg tablet 20 mg PO DAILY ropinirole 1 mg tablet 1 mg PO DAILY lamotrigine 200 mg tablet extended release 24hr 200 mg PO DAILY Vraylar 4.5 mg capsule 4.5 mg PO DAILY Jornay PM 100 mg capsule,del rel,ext rel sprink 100 mg PO HS pantoprazole 40 mg Tablet,Delayed Release (Dr/Ec) 40 mg PO QAM Qty: 28 0RF <Marilyn Dove APRN - Last Filed: 07/03/25 19:53> Follow-up/Referrals: Emilia Han MD [Primary Care Provider, Pediatrics] <Marilyn Dove APRN - Last Filed: 07/03/25 19:53>
[2025-07-03 23:01] LABS: Hematocrit 47.5 % (37.0-47.0); Hemoglobin 16.5 g/dL (12.0-15.0); Immature Granulocyte Percent A 0.4 % (0-0.5); Lymphocytes Absolute Auto 0.36 K/mm3 (0.9-3.2); Mean Corpuscular HGB Conc 34.7 g/dl (32-36); Mean Corpuscular Hemoglobin 31.3 pg (26-34); Mean Corpuscular Volume 90.0 fl (80-100); Nucleated Red Blood Cells Absolute Auto 0.000 K/mm3 (0.0-0.012); Nucleated Red Blood Cells Perc 0.0 % (0.0-0.2); Platelet Count Result 346 k/mm3 (150-375); Red Blood Count 5.28 M/mm3 (4.2-5.4); White Blood Count 11.0 K/mm3 (4.5-10.0)
[2025-07-03 23:05] LABS: BEDSIDEPREGUCG Negative (Negative)
[2025-07-03 23:08] LABS: Add Urine Microscopic? YES; Appearance Urine Cloudy (Clear); Glucose Urine UA Negative (Negative); Leukocyte Esterase Ur Trace LEU/UL (Negative); Nitrate Urine Negative (Negative); Specific Grav Ur 1.026 (1.001-1.035)
[2025-07-03 23:21] LABS: Cannabinoid Screen Urine Negative (Negative)
[2025-07-03 23:22] LABS: Alanine Aminotransferase 34 U/L (6-35); Albumin Level 5.8 g/dL (3.5-5.1); Alkaline Phosphatase 129 U/L (38-126); Anion Gap 30 mmol/L (4-12); Aspartate Amino Transferase 54 U/L (14-36); Bilirubin,Total 1.0 mg/dL (0.2-1.3); Blood Urea Nitrogen 6 mg/dL (7-17); Calcium 10.5 mg/dL (8.4-10.2); Carbon Dioxide 11 mmol/L (22-30); Chloride 98 mmol/L (98-107); Estimated CRCL calculation 98 ml/min; Estimated Glomerular Filt Rate > 60; Glucose 136 mg/dL (65-110); Lipase 130 U/L (23-300); Magnesium 2.0 mg/dL (1.6-2.3); Potassium 3.8 mmol/L (3.4-5.0); Sodium 139 mmol/L (137-145); Total Protein 9.5 g/dL (6.3-8.2)
[2025-07-03] MEDS: DEXTROSE 5%/LACTATED RINGERS 2,000 ML 999 ML IV CONT (23:44)
[2025-07-03] MEDS: FAMOTIDINE 20 MG/2 ML VIAL IV PUSH (23:44)
[2025-07-03] MEDS: ONDANSETRON INJ 4 MG/2 ML VIAL IV PUSH (23:45)
--- OUTSIDE RECORDS SUMMARY | 2025-07-03 23:50 | XMS_ITS | Clinical Summary ---
Author Organization [facility] Address [address] [place] [address] Care Team Providers Care Perianesthesia Rn Name Role Phone Emilia Han MD Primary Care Provider + Elias Vasques MD Unavailable [phone] Allergies No known active allergies Medications [...] (06/04/2021): Added automatically from request for surgery [id number] Syncope 11/18/2019 Assessment & Plan (11/18/2019 3:57 PM SPAR CAP BEVELER): Larissa Maurice is a 14 y.o. female [...] - Pain control - Cyclobenzaprine q8h PRN; [place] q6hr PRN - PT evaluate and treat [...] TW Conv) Diabetes Mother Diabetes Other Diabetes [facility] - --gestational in mom (Added by [...] on file Legal Sex Female 12:52 PM SPAR CAP BEVELER Gender Identity Female 11/24/2023 3:03 PM SPAR CAP BEVELER Sexual Orientation Bisexual 11/24/2023 3: 03 PM SPAR CAP BEVELER Obstetrics History Last Filed Vital Signs Vital Sign Reading Time Taken Comments Blood Pressure 130/84 10/04/2024 11:10 AM SPAR CAP BEVELER Pulse 81 10/04/2024 11:10 AM SPAR CAP BEVELER Temperature 36.1 C (97 F) 10/04/2024 10:47 AM SPAR CAP BEVELER Respiratory Rate 25 10/04/2024 11:10 AM SPAR CAP BEVELER Oxygen Saturation 94% 10/04/2024 11:10 AM SPAR CAP BEVELER Inhaled Oxygen Concentration - - Weight 63.5 kg (140 lb) 10/04/2024 8:08 AM SPAR CAP BEVELER Height 167.6 cm (5' 6) 10/04/2024 8:08 AM SPAR CAP BEVELER Body Mass Index 22.6 10/04/2024 8:08 AM SPAR CAP BEVELER Plan of Treatment Health Maintenance Due Date Last Done Comments Cervical Cancer Screening 2003 Depression Screening 2003 Hepatitis C Screening 2003 Pneumococcal vaccine <65 (1 of 1 - PPSV23, PCV20, or PCV21) 2009 03/16/2004, 2003, 2003, Additional history exists Meningococcal B Vaccine (2 o f 2 - Bexsero SCDM 2-dose series) 10/16/2020 04/16/2020 Covid-19 Vaccine (3 - Pfizer risk series) 02/10/2021 01/13/2021, 12/24/2020 Regular Well Visit/Exam 18-64 2021 DTaP/Tdap/Td Vaccine (7 - Td or Tdap) 05/16/2024 05/16/2014, 03/27/2008, 03/27/2008, Additional history exists Influenza Vaccine (#1) 2025 8, 08/07/2017, 07/19/2013, Additional history exists Hepatitis B Screening Completed 2003 , 2003, 2003 Varicella Vaccines Completed 03/27/2008, 03/16/2004 HPV Vaccines Completed 05/22/2015, 08/24, 05/16/2014 Medical Devices Explanted Type Area Baker Doughnut Device Identifier Shelf Expiration Date Model / Serial / Lot [employer]/Jacob o [id number] 4.5mm 50mm Low Profile Internal Capture Femur Screw Bone Trigen - [id number] Implanted:Qty: 1 on 04/28/2020 by Andres Maharaj MD at [facility] Explanted:Qty: 1 on 09/13/2021 by Andres Maharaj MD Screw Left: Femur [employer]/O rtho 05/14/2029 [id number] / / Trigmaria del carmen Adolescent Allison Implanted:Qty: 1 on 11/11/2019 by Andres Maharaj MD at [facility] Explanted:Qty: 1 on 09/13/2021 by Andres Maharaj MD Right: Femur [employer] 10/23/2024 [id number] / / [id number] Description:[id number] [employer]/Rich[employer]/Orth o [id number] 4.5mm 45mm Low Profile Internal Capture Femur Screw Bone Trigen - [id number] Implanted:Qty: 1 on 11/11/2019 by Andres Maharaj MD at [facility] Explanted:Qty: 1 on 09/13/2021 by Andres Maharaj MD Right: Femur [employer]/O rtho 04/22/2024 [id number] / / [id number] [employer]/Orth o [id number] 4.5mm 42.5mm Low Profile Internal Capture Femur Screw Bone Trigen - [id number] Implanted:Qty: 1 on 11/11/2019 by Andres Maharaj MD at [facility] Explanted:Qty: 1 on 09/13/2021 by Andres Maharaj MD Right: Femur [employer]/O rtho 03/31/2029 [id number] / / [id number] [employer]/Orth o [id number] 4.5mm 52.5mm Low Profile Internal Capture Femur Screw Bone Trigen - [id number] Implanted:Qty: 1 on 11/11/2019 by Andres Maharaj MD at [facility] Explanted:Qty: 1 on 09/13/2021 by Andres Maharaj MD Right: Femur [employer]/O rtho 12/21/2022 [id number] / / [id number] [employer]/Orth o [id number] Trigen 8.5mm 38cm Antegrade Femur Left 130d Nail Intramedullary - [id number] Implanted:Qty: 1 on 04/28/2020 by Andres Maharaj MD at [facility] Explanted:Qty: 1 on 09/13/2021 by Andres Maharaj MD Left: Femur [employer]/O rtho 05/18/2027 [id number] / / [employer]/Rich[employer]/Orth o [id number] 4.5mm 42.5mm Low Profile Internal Capture Femur Screw Bone Trigen - [id number] Implanted:Qty: 1 on 04/28/2020 by Andres Maharaj MD at [facility] Explanted:Qty: 1 on 09/13/2021 by Andres Maharaj MD Left: Femur [employer]/O rtho 06/01/2029 [id number] / / Description:Proximal screw Insurance [facility]Re [facility] DISKOVRe CHOICE CO DISKOVRe CHOICE CO Deliv CO [facility] Deliv CO [facility] Advance Directives For more information, please contact: [phone] Documents on File Type Date Recorded 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
--- OUTSIDE RECORDS SUMMARY | 2025-07-03 23:50 | XMS_ITS | Clinical Summary ---
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
[2025-07-04 00:01] LABS: Thyroid Stimulating Hormone Reflex 3.130 uIU/mL (0.465-4.68)
[2025-07-04 00:02] VITALS: BP 121/74; PULSE 75; RESP 18; O2SAT 99
[2025-07-04] MEDS: HALOPERIDOL LACTATE 5 MG/ML VIAL IM (00:42)
[2025-07-04 02:02] VITALS: BP 128/76; PULSE 89; RESP 18; O2SAT 99
[2025-07-04 02:22] VITALS: BP 132/74; PULSE 64; RESP 18; O2SAT 99
== END 2025-07-04 02:23 | disposition home or self-care (01) ==
PROVIDERS: Registered Nurse; Emergency Provider Emergency Medicine; PCP Pediatrics
DX: E87.29 Other acidosis (principal); K29.20 Alcoholic gastritis without bleeding; F17.290 Nicotine dependence, other tobacco product, uncomplicated
CPT/HCPCS: 36415; 80053; 80307; 81001; 81025; 82077; 82948; 83690; 83735; 84100; 84443; 85025; 87086; 96361; 96372; 96374; 96375; 99284; J1200; J1630; J2405; J7121